=== PATIENT | female | born 2000 | race Caucasian/White ===

== ENCOUNTER 2024-06-07 21:20 | Emergency (ER) | payer MEDICAID, SELFPAY ==
[2024-06-07 21:22] VITALS: PULSE 75; RESP 17; TEMP 36.4; O2SAT 98; BMI 35.4
[2024-06-07 22:01] VITALS: BP 127/58; PULSE 82; RESP 18; O2SAT 98
--- NOTE | 2024-06-07 22:34 | ED_ITS ---
Discharge Plan Disposition Chief Complaint: PAIN Referrals Follow up/Referrals: Michell Batres APRN [Primary Care Provider] - See instructions Alma Jain DPM [Staff Physician] - See instructions Activity Restrictions/Add. Instructions Additional Instructions/Restrictions: At this time it was felt you are safe to be discharged home. If new or worsening symptoms please do not hesitate to return the emergency department. Please call and schedule appoint with Dr. Jain as soon as you are able. Clinical Impressions Clinical Impression: Chronic foot pain, Club foot of both lower extremities Discharge ED Provider: Kit Dorantse General Adult HPI General Chief complaint: PAIN Stated complaint: Swollen feet,no injury Time Seen by Provider: 06/07/24 21:30 Mode of Arrival: Family Vehicle Source of Information: Patient and Parent(s) Limitations: No Limitations Description of Symptoms (Recalled from ER Triage Doc. by RN): Pt c/o bilateral foot pain, swelling, and paresthesia. 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 Pt states this pain and swelling has been present for about 2-3 wk. 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 Pt reports she is fine to work 4 hrs but then the pain and swelling becomes apparent. She has taken tylenol for pain relief but this did nothing . Last use was 5 days ago. Bilat pedal pulse are strong, E COMMERCE STRATEGIST < 3 sec. History of Present Illness HPI narrative: Patient is a 23-year-old female with past medical history of congenital clubfeet status post bracing who presents emergency department for evaluation of foot pain. Patient has been dealing with this foot pain for approximately 4 years. It is present when she stands for prolonged amount of time working on her feet. She currently works on her feet 8 to 9 hours a day with increased hours she has had increased pain and swelling. No trauma. No other acute complaints at this time. Related Data Allergies Allergy/AdvReac Type Severity Reaction Status Date / Time INGREDIENT: NO KNOWN - NO Allergy Unknown Uncoded 11/06/17 15:10 KNOWN DRUG ALLERGY [facility] Disclaimer: The information contained in this section may have been updated after the patient was seen, as this information can be updated by other users. Social History Smoking Status: Never smoker alcohol intake: never current occupational status: other Travel in the last 8 weeks: None ROS Obtained: Yes Systems reviewed as appropriate & no additional complaints except as documented Physical Exam General General appearance: alert and in no apparent distress Head Head exam: atraumatic and normocephalic Eye Eye exam: Present PERRL ENT ENT exam: Present mucous membranes moist Neck Neck exam: Present normal inspection Chest Chest inspection: Present normal inspection and symmetric chest wall rise Respiratory Respiratory exam: Absent respiratory distress Cardiovascular Cardiovascular exam: Present regular rate and normal rhythm Extremities Exam Extremities exam: Present other (Slightly varus oriented bilateral ankles, dorsal pedal pulses bilaterally, mild swelling of the feet bilaterally, no erythema. Patient is able to ambulate.) Neurological Exam Neurological exam: Present alert Psychiatric Psychiatric exam: Present normal affect Skin Skin exam: Present warm and dry Medical Decision Making [place] Inquiry Pt receiving controlled substance: No Vital Signs: 06/07/24 21:22 Temperature 97.6 F Temperature Source Oral Pulse Rate [Right] 75 Respiratory Rate 17 02 Sat by Pulse Oximetry 98 Oxygen Delivery Method Room Air Medical Decision Narrative: Patient is aIn summary patient is 23-year-old female past medical history described above who presents emergency department for evaluation of foot pain and swelling that is chronic. Patient is hemodynamically stable nontoxic- appearing upon arrival, afebrile. Given no trauma and no concern for infection based on history and physical exam I suspect that patient has chronic musculoligamentous inflammation in the setting of her clubfeet that were braced as a child. Workup with labs and imaging was considered but will be deferred as they are likely to be fruitless. Patient will benefit from referral to Dr. Jain. Patient was given Tylenol and ibuprofen and is appropriate for outpatient management at this time was given return precautions Critical Care Critical Care Time Critical Care Time: No
[2024-06-07] MEDS: ACETAMINOPHEN 325MG/10.15ML UDC 1000 MG PO (22:50)
[2024-06-07] MEDS: IBUPROFEN 200MG/10ML SUSP UDC 600 MG PO (22:50)
[2024-06-07 22:58] VITALS: BP 127/58; PULSE 80; RESP 18; TEMP 36.8; O2SAT 98
== END 2024-06-07 23:01 | disposition home or self-care (01) ==
PROVIDERS: Emergency Provider Emergency Medicine; PCP Nurse Practitioner Family
DX: M79.673 Pain in unspecified foot (principal); Q66.89 Other specified congenital deformities of feet
CPT/HCPCS: 99283

== ENCOUNTER 2024-06-19 16:53 | Outpatient (CLI) | payer MEDICAID, SELFPAY ==
[2024-06-19 17:03] LABS: Microscopic, Urine URINE MICROSCOPIC (MICROSCOPIC)
[2024-06-19 17:30] LABS: Basophils # 0.1 K/mm3 (0-0.2); Basophils % 0.7 % (0.1-2.0); Eosinophils # 0.2 K/mm3 (0.0-0.4); Eosinophils % 1.8 % (0.1-12.0); Hematocrit 41.4 % (37.0-47.0); Hemoglobin 13.7 g/dL (12.2-16.2); Lymphocytes # 3.2 K/mm3 (0.7-4.5); Lymphocytes % 33.7 % (10-50); Mean Corpuscular HGB Conc 33.2 g/dL (31.8-35.4); Mean Corpuscular Volume 87.4 fl (81-99); Monocytes # 0.4 K/mm3 (0.1-1.0); Neutrophils # 5.7 K/mm3 (1.8-7.8); Neutrophils % 59.7 % (37.0-80.0); Platelet Count 291 K/mm3 (142-424); Red Blood Count 4.74 M/mm3 (4.20-5.40); Red Cell Distribution Width 15.7 % (11.5-17.5); White Blood Count 9.6 K/mm3 (4.8-10.8)
[2024-06-19 17:31] LABS: Appearance,Urine CLEAR (Clear); Bilirubin,Urine Negative (Negative); Blood, Urine Negative (Negative); Color,Urine YELLOW (Yellow); Glucose,Urine (UA) Negative (Negative); Ketones,Urine Negative (Negative); Leukocyte Esterase,Urine Negative (Negative); Nitrate,Urine Negative (Negative); PH,Urine 5.5 (5.0-8.5); Protein,Urine Negative (Negative); Specific Gravity, Urine >= 1.030 (1.005-1.030); Urobilinogen,Urine 0.2 EU/dl (0.2)
[2024-06-19 17:35] LABS: Urine Pregnancy, HCG Qual. Negative (Negative)
[2024-06-19 17:43] LABS: RBC,Urine Occasional #/hpf (0-3); WBC,Urine Occasional #/hpf (0-3)
[2024-06-19 17:44] LABS: Bacteria,Urine Trace /lpf; Mucus,Urine 4+ /lpf
[2024-06-19 18:10] LABS: HIV (1&2) Antibody Rapid NONREACTIVE (NONREACTIVE)
[2024-06-19 18:28] LABS: Alanine Aminotransferase 42 U/L (12-78); Albumin Level 4.2 g/dl (3.5-5.0); Albumin/Globulin Ratio 1.3 (1.1-1.8); Alkaline Phosphatase 83 U/L (38-126); Anion Gap 12.8 mEq/L (5-15); Aspartate Amino Transferase 35 U/L (14-36); Bilirubin,Total 0.6 mg/dl (0.2-1.3); Blood Urea Nitrogen 11 mg/dl (7-17); Calcium 9.6 mg/dl (8.4-10.2); Carbon Dioxide 25 mmol/L (22.0-30.0); Chloride 107 mmol/L (98-107); Chol/HDL Ratio 3.9 (1-3.5); Cholesterol 196 mg/dl (140-200); Estimated Glomerular Filt Rate 90 ml/min (>60); GFR (African American) 109 ML/MIN (>60); Globulin 3.3 g/dL (1.3-3.2); Glucose 87 mg/dl (74-100); HDL Cholesterol 50 mg/dl (40-60); Potassium 3.8 mmoL/L (3.5-5.1); Sodium 141 mmol/L (136-145); Total Protein,Serum 7.5 g/dl (6.3-8.2); Triglycerides 197 mg/dl (30-150); VLDL Cholesterol 39 mg/dL (0-40)
[2024-06-19 18:39] LABS: Direct LDL Cholesterol 106.28 mg/dL (100-129)
[2024-06-19 18:45] LABS: 25-OH Vitamin D, Total 23.6 ng/mL (30-100)
[2024-06-19 18:46] LABS: Free T4 (Free Thyroxine) 1.04 ng/dl (0.78-2.19)
[2024-06-19 18:59] LABS: Thyroid Stimulating Hormone 2.43 uIU/mL (0.465-4.68)
[2024-06-19 19:18] LABS: Vitamin B12 264 pg/mL (239-931)
[2024-06-19 22:28] LABS: Iron 68 ug/dL (37-170)
[2024-06-19 22:30] LABS: Hemoglobin A1C 4.9 % (4.0-6.0)
[2024-06-19 22:39] LABS: Total Iron Binding Capacity 319 ug/dL (265-497)
[2024-06-19 23:05] LABS: Ferritin 30.4 ng/ml (6.24-137)
[2024-06-21 05:15] LABS: HCV Ab Non Reactive (Non Reactive)
[2024-06-21 12:12] LABS: Rapid Plasma Reagin Ab Titer Non Reactive titer (NonRea<1:1)
[2024-06-23 21:37] LABS: Neisseria gonorrhoeae, NAA Negative (Negative)
== END 2024-06-19 23:59 | disposition home or self-care (01) ==
LOC: LAB 16:56
PROVIDERS: PCP Nurse Practitioner Family; Visit Provider Nurse Practitioner Family
DX: Z11.4 Encounter for screening for human immunodeficiency virus [HIV] (principal); R53.83 Other fatigue; E66.9 Obesity, unspecified; Z68.41 Body mass index [BMI] 40.0-44.9, adult; N92.6 Irregular menstruation, unspecified; Z13.1 Encounter for screening for diabetes mellitus; Z13.220 Encounter for screening for lipoid disorders; Z11.59 Encounter for screening for other viral diseases; Z11.3 Encounter for screening for infections with a predominantly sexual mode of transmission
CPT/HCPCS: 86703; 86803; 36415; 80050; 80053; 80061; 81001; 81025; 82306; 82607; 82728; 83036; 83540; 83550; 84439; 84443; 85025; 86593; 87086; 87491; 87591

== ENCOUNTER 2024-06-30 20:29 | Emergency (ER) | payer MEDICAID, SELFPAY ==
[2024-06-30 21:29] VITALS: BP 129/84; PULSE 79; RESP 17; TEMP 36.9; O2SAT 100; BMI 35.4
--- NOTE | 2024-06-30 21:41 | HMH.EDGENADL ---
Discharge Plan Disposition Patient Disposition: Home, Self-Care Condition: Good Prescriptions Prescriptions: New ondansetron 4 mg tablet,disintegrating 4 mg PO Q8H PRN (Reason: nausea and vomiting) 4 Days Qty: 12 0RF pantoprazole 40 mg tablet,delayed release (DR/EC) 40 mg PO DAILY Qty: 30 1RF Referrals Follow up/Referrals: Michell Batres APRN [Primary Care Provider] - See instructions Activity Restrictions/Add. Instructions Additional Instructions/Restrictions: You were evaluated in the emergency department today. 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 Follow-up very closely with your primary care provider for reassessment. Return to the emergency department for new or worsening symptoms, such as significant worsening in nausea and vomiting, inability to tolerate oral intake, or abdominal pain. Clinical Impressions Clinical Impression: Gastritis Stand Alone Forms Stand Alone Forms: Work/School Release Instructions Patient Instructions: DI for Diarrhea and Traveler's Diarrhea -- Adult, DI for Nausea -- Adult Print Language Print Language: Amharic Discharge ED Provider: Gay Smith General Adult HPI General Chief complaint: Nausea/Vomiting/Diarrhea Stated complaint: vomiting dizziness abd pain Time Seen by Provider: 06/30/24 21:39 Mode of Arrival: Ambulatory Source of Information: Patient Limitations: No Limitations Description of Symptoms (Recalled from ER Triage Doc. by RN): Pt states she has been having left sided flank pain x 1 week. She rates her pain 5/10. She also reports that she has been vomiting for the last week; last vomitied prior to arrival at the ER and dizzy for the last 2 days. She reports her last menstrual cycle was 05/23/24. She denies any recent fever. History of Present Illness HPI narrative: This patient is a 23-year-old female who denies significant past medical history presenting to the emergency department for evaluation with concern for nausea and vomiting. Patient states that she has had nausea vomiting for 1 week. She denies any localizable pain, only states that she has had mild cramping prior to nausea. Emesis is nonbloody and nonbilious. She has not had any significant changes in bowel movements. No dysuria, urinary frequency, or other concerns noted. No abnormal vaginal discharge. She denies concern for sexually transmitted infections. She is concerned that she could possibly be . Related Data Previous Rx's ?Medication ?Instructions ?Recorded ondansetron 4 mg disintegrating 4 mg PO Q8H PRN nausea and 06/30/24 tablet vomiting 4 days #12 tabs pantoprazole 40 mg tablet,delayed 40 mg PO DAILY #30 tabs 06/30/24 release Allergies Allergy/AdvReac Type Severity Reaction Status Date / Time No Known Allergies Allergy Verified 06/30/24 21:35 [facility] Disclaimer: The information contained in this section may have been updated after the patient was seen, as this information can be updated by other users. Surgical History H/O section H/O clubfoot correction Social History Smoking Status: Never smoker alcohol intake: never current occupational status: other Travel in the last 8 weeks: None ROS Obtained: Yes All systems reviewed & no additional complaints except as documented Physical Exam General General appearance: alert and in no apparent distress Head Head exam: atraumatic and normocephalic Eye Eye exam: Present normal appearance, PERRL and EOMI ENT ENT exam: Present normal exam, normal oropharynx, mucous membranes moist and normal external ear exam Neck Neck exam: Present normal inspection, full ROM and trachea midline; Absent tenderness Chest Chest inspection: Present normal inspection and symmetric chest wall rise; Absent tenderness Respiratory Respiratory exam: Present normal lung sounds bilaterally; Absent respiratory distress, wheezes, stridor or accessory muscle use Cardiovascular Cardiovascular exam: Present regular rate and normal rhythm Abdominal Exam Abdominal exam: Present soft; Absent distention, tenderness or guarding Extremities Exam Extremities exam: Present normal inspection, full ROM and normal capillary refill; Absent tenderness or edema Back Exam Back exam: Present normal inspection and full ROM; Absent tenderness Neurological Exam Neurological exam: Present alert, oriented X3, CN II-XII intact and normal gait; Absent motor sensory deficit Psychiatric Psychiatric exam: Present normal affect and normal mood Skin Skin exam: Present warm and dry Medical Decision Making Medical Records Medical records reviewed: Yes I reviewed the patient's medical records. [place] Inquiry Pt receiving controlled substance: No Vital Signs: 06/30/24 21:29 06/30/24 23:32 Temperature 98.4 F 98.2 F Temperature Source Oral Oral Pulse Rate 78 Pulse Rate [Right Brachial] 79 Respiratory Rate 17 16 Blood Pressure 100/64 L Blood Pressure [Right Arm] 129/84 Blood Pressure Mean [Right Arm] 99 Blood Pressure Source Automatic Cuff Blood Pressure Source [Right Arm] Automatic Cuff Blood Pressure Position Supine Blood Pressure Position [Right Arm] Sitting 02 Sat by Pulse Oximetry 100 Oxygen Delivery Method Room Air Room Air Lab Data Lab results reviewed: Yes I reviewed the patient's lab results. Lab Results 06/30/24 21:56: WBC 10.6, RBC 4.92, Hgb 14.1, Hct 44.6, MCV 90.8, MCH 28.7, MCHC 31.7 L, RDW 15.7, Plt Count 276, MPV 9.7, Neut % (Auto) 62.1, Lymph % (Auto) 31.4, [place] % (Auto) 4.0, Eos % (Auto) 1.7, Baso % (Auto) 0.8, Neut # (Auto) 6.6, Lymph # (Auto) 3.3, [place] # (Auto) 0.4, Eos # (Auto) 0.2, Baso # (Auto) 0.1, Sodium 140, Potassium 3.6, Chloride 107, Carbon Dioxide 25, Anion Gap 11.6, BUN 12, Creatinine 0.70, Estimated Creat Clear 181, Estimated GFR 105, Est GFR ( Amer) 127, Glucose 98, Calcium 9.3, Total Bilirubin 0.5, AST 34, ALT 35, Alkaline Phosphatase 81, Total Protein 8.5 H, Albumin 4.5, Globulin 4.0 H, Albumin/Globulin Ratio 1.1, Lipase 53, Serum HCG, Qual Negative 06/30/24 22:03: Urine Color Yellow, Urine Appearance Clear, Urine pH 6.0, Ur Specific [place] >= 1.030, Urine Protein Negative, Urine Glucose (UA) Negative, Urine Ketones Negative, Urine Blood Negative, Urine Nitrate Negative, Urine Bilirubin Negative, Urine Urobilinogen 0.2, Ur Leukocyte Esterase Negative, Urine RBC Occasional, Urine WBC 5-10, Ur Squamous Epith Cells 20-50, Urine Bacteria 4+ 06/30/24 21:56 06/30/24 21:56 Orders (Tests/Meds): ED MEDICATIONS Discontinued Medications Generic Name Dose Route Start Last Admin Trade Name Freq PRN Reason Stop Dose Admin Lactated Ringer's 1,000 mls @ 999 mls/hr 06/30/24 21:40 06/30/24 22:07 Lactated Ringer's 1000 Ml Bag IV 06/30/24 22:40 999 mls/hr .Q1H1M ONE Administration Ondansetron HCl 4 mg 06/30/24 21:40 06/30/24 22:07 Ondansetron 4mg/2ml Vial IV 06/30/24 21:41 4 mg ONCE ONE Administration ORDERS Category Date Time Status CBC w/Auto Diff [Complete Blood Count Auto Diff] Stat Lab 06/30/24 21:56 Completed CMP [Comprehensive Metabolic Panel] Stat Lab 06/30/24 21:56 Completed Lipase Stat Lab 06/30/24 21:56 Completed Serum [HCG Qualitative, Serum] Stat Lab 06/30/24 21:56 Completed UA [Urinalysis and Microscopic] Stat Lab 06/30/24 22:03 Completed Urine Culture Stat Micro 06/30/24 22:03 Received Medical Decision Narrative: In summary, this patient is a 23-year-old female presenting to the Emergency Department for evaluation of nausea and vomiting. Differential diagnoses considered include but are not limited to gastroenteritis, gastritis, pancreatitis, colitis, cholecystitis, . Ruling out the most morbid conditions drove assessment. On exam, the patient is very well-appearing. She has benign abdominal exam with no localizable pain or tenderness to suggest acute surgical intra-abdominal pathology. She denies urinary or vaginal symptoms. workup included CBC, CMP, lipase, test, urinalysis. Patient was given a bolus of IV fluids as well as IV Zofran for symptomatic improvement. On reassessment, the patient is resting comfortably with improved symptoms. She is able to tolerate oral intake. Abdominal exam remains benign. Labs are reassuring with no significant leukocytosis. Electrolytes, kidney function, liver function all normal. Lipase normal. No elevation in bilirubin. Urine is grossly contaminated with squamous cells but is negative for leukocyte esterase or nitrates. Ultimately, I feel the patient is appropriate for discharge home. She was given prescriptions for Zofran and pantoprazole for presumed gastritis as well as instructions for close follow-up. Strict return precautions were given. Critical Care Critical Care Time Critical Care Time: No
[2024-06-30] MEDS: LACTATED RINGERS 1000ML 1,000 ML 999 ML IV (22:07)
[2024-06-30] MEDS: ONDANSETRON 4MG/2ML VIAL 4 MG IV (22:07)
[2024-06-30 22:11] LABS: Microscopic, Urine URINE MICROSCOPIC (MICROSCOPIC)
[2024-06-30 22:12] LABS: Appearance,Urine CLEAR (Clear); Bilirubin,Urine Negative (Negative); Blood, Urine Negative (Negative); Color,Urine YELLOW (Yellow); Glucose,Urine (UA) Negative (Negative); Ketones,Urine Negative (Negative); Leukocyte Esterase,Urine Negative (Negative); Nitrate,Urine Negative (Negative); Protein,Urine Negative (Negative); Specific Gravity, Urine >= 1.030 (1.005-1.030); Urobilinogen,Urine 0.2 EU/dl (0.2)
[2024-06-30 22:30] LABS: Bacteria,Urine 4+ /lpf; RBC,Urine Occasional #/hpf (0-3); Squamous Epithelial Cell,Urine 20-50 #/hpf (0-5)
[2024-06-30 22:30] LABS: Alanine Aminotransferase 35 U/L (12-78); Albumin Level 4.5 g/dl (3.5-5.0); Albumin/Globulin Ratio 1.1 (1.1-1.8); Alkaline Phosphatase 81 U/L (38-126); Anion Gap 11.6 mEq/L (5-15); Aspartate Amino Transferase 34 U/L (14-36); Bilirubin,Total 0.5 mg/dl (0.2-1.3); Blood Urea Nitrogen 12 mg/dl (7-17); Calcium 9.3 mg/dl (8.4-10.2); Carbon Dioxide 25 mmol/L (22.0-30.0); Chloride 107 mmol/L (98-107); Creatinine Clearance Estimated 181 mL/min (50-200); Estimated Glomerular Filt Rate 105 ml/min (>60); GFR (African American) 127 ML/MIN (>60); Glucose 98 mg/dl (74-100); Lipase 53 U/L (23-300); Potassium 3.6 mmoL/L (3.5-5.1); Sodium 140 mmol/L (136-145); Total Protein,Serum 8.5 g/dl (6.3-8.2)
[2024-06-30 22:31] LABS: HCG Qualitative, Serum Negative (Negative)
[2024-06-30 22:55] LABS: Basophils # 0.1 K/mm3 (0-0.2); Basophils % 0.8 % (0.1-2.0); Eosinophils # 0.2 K/mm3 (0.0-0.4); Eosinophils % 1.7 % (0.1-12.0); Hematocrit 44.6 % (37.0-47.0); Hemoglobin 14.1 g/dL (12.2-16.2); Lymphocytes # 3.3 K/mm3 (0.7-4.5); Lymphocytes % 31.4 % (10-50); Mean Corpuscular HGB Conc 31.7 g/dL (31.8-35.4); Mean Corpuscular Hemoglobin 28.7 pg (27.0-31.2); Mean Corpuscular Volume 90.8 fl (81-99); Mean Platelet Volume 9.7 fl (7.4-10.4); Monocytes # 0.4 K/mm3 (0.1-1.0); Neutrophils # 6.6 K/mm3 (1.8-7.8); Neutrophils % 62.1 % (37.0-80.0); Platelet Count 276 K/mm3 (142-424); Red Blood Count 4.92 M/mm3 (4.20-5.40); Red Cell Distribution Width 15.7 % (11.5-17.5); White Blood Count 10.6 K/mm3 (4.8-10.8)
[2024-06-30 23:32] VITALS: BP 100/64; PULSE 78; RESP 16; TEMP 36.8; O2SAT 99
== END 2024-06-30 23:33 | disposition home or self-care (01) ==
PROVIDERS: Emergency Provider Emergency Medicine; PCP Nurse Practitioner Family
DX: K29.70 Gastritis, unspecified, without bleeding (principal); R11.2 Nausea with vomiting, unspecified; R25.2 Cramp and spasm
CPT/HCPCS: 80053; 81001; 83690; 84703; 85025; 87086; 96361; 96374; 99284; J2405; J7120

== ENCOUNTER 2024-07-03 22:42 | Emergency (ER) | payer BC, SELFPAY ==
[2024-07-03 22:44] VITALS: BP 172/98; PULSE 117; RESP 16; TEMP 37.4; O2SAT 97; BMI 35.4
--- NOTE | 2024-07-03 22:56 | ED_ITS ---
Discharge Plan Disposition Patient Disposition: Home, Self-Care Prescriptions Prescriptions: No Action ondansetron 4 mg tablet,disintegrating 4 mg PO Q8H PRN (Reason: nausea and vomiting) 4 Days Qty: 12 0RF pantoprazole 40 mg tablet,delayed release (DR/EC) 40 mg PO DAILY Qty: 30 1RF Referrals Follow up/Referrals: Michell Batres APRN [Primary Care Provider] - See instructions Activity Restrictions/Add. Instructions Additional Instructions/Restrictions: Please take the Zofran as previously prescribed. Please remain hydrated. Please follow-up with your primary care provider. Please return to the emergency department if you develop any new or worsening symptoms or become concerned for your health. Clinical Impressions Clinical Impression: Nausea & vomiting Qualifiers: Vomiting type: unspecified Qualified Code(s): R11.2 - Nausea with vomiting, unspecified Stand Alone Forms Stand Alone Forms: Work/School Release Instructions Patient Instructions: DI for Acute Abdominal Pain Print Language Print Language: Chinese Discharge ED Provider: Lorenzo Tee General Adult HPI General Chief complaint: Abdominal Pain Stated complaint: Stomach pain,HARRISON,vomiting Time Seen by Provider: 07/03/24 22:55 History of Present Illness HPI narrative: 23-year-old female presents for continued nausea vomiting and abdominal pain. She reports that her symptoms started 2 days ago and she was seen in the ER at that time. She had a workup that was unremarkable and was discharged with prescription for Zofran. She reports that she tried to take Zofran only once and she threw it up so she never tried again. She reports that she has vomited with every attempt at eating or drinking over the last 2 days. She reports she has a headache. She reports the abdominal pain is generalized and is unable to localize it to a specific location when asked. She denies any diarrhea. She reports that she had a fever yesterday. Related Data Previous Rx's ?Medication ?Instructions ?Recorded ondansetron 4 mg disintegrating 4 mg PO Q8H PRN nausea and 06/30/24 tablet vomiting 4 days #12 tabs pantoprazole 40 mg tablet,delayed 40 mg PO DAILY #30 tabs 06/30/24 release Allergies Allergy/AdvReac Type Severity Reaction Status Date / Time No Known Allergies Allergy Verified 06/30/24 21:35 [facility] Disclaimer: The information contained in this section may have been updated after the patient was seen, as this information can be updated by other users. Surgical History H/O section H/O clubfoot correction Social History Smoking Status: Never smoker alcohol intake: never current occupational status: other Travel in the last 8 weeks: None ROS Obtained: Yes All systems reviewed & no additional complaints except as documented Physical Exam General General appearance: alert and in no apparent distress Head Head exam: atraumatic and normocephalic Eye Eye exam: Present normal appearance, PERRL and EOMI ENT ENT exam: Present normal oropharynx and normal external ear exam Neck Neck exam: Present normal inspection and full ROM Chest Chest inspection: Present normal inspection and symmetric chest wall rise; Absent tenderness Respiratory Respiratory exam: Present normal lung sounds bilaterally; Absent respiratory distress Cardiovascular Cardiovascular exam: Present regular rate and normal rhythm Abdominal Exam Abdominal exam: Present soft and tenderness (Minimal, diffuse without guarding); Absent distention or guarding Extremities Exam Extremities exam: Present normal inspection; Absent edema or joint swelling Back Exam Back exam: Present normal inspection; Absent tenderness Neurological Exam Neurological exam: Present alert and oriented X3; Absent motor sensory deficit Psychiatric Psychiatric exam: Present normal affect and normal mood Skin Skin exam: Present warm, dry and normal color Lymphatic Lymphatic Findings: no adenopathy Medical Decision Making Medical Records Medical records reviewed: Yes I reviewed the patient's medical records. [place] Inquiry Pt receiving controlled substance: No [place] was queried for this patient: No Vital Signs: 07/03/24 22:44 07/03/24 23:49 Temperature 99.4 F 99.4 F Temperature Source Oral Oral Pulse Rate 99 H Pulse Rate [Left] 117 H Respiratory Rate 16 16 Blood Pressure 107/66 L Blood Pressure [Right Arm] 172/98 H Blood Pressure Mean [Right Arm] 122 Blood Pressure Source Automatic Cuff Blood Pressure Source [Right Arm] Automatic Cuff Blood Pressure Position Sitting Blood Pressure Position [Right Arm] Sitting 02 Sat by Pulse Oximetry 97 Oxygen Delivery Method Room Air Room Air Lab Data Lab results reviewed: Yes I reviewed the patient's lab results. Lab Results 07/03/24 22:45: Urine Color Yellow, Urine Appearance Clear, Urine pH 6.0, Ur Specific [place] >= 1.030, Urine Protein Negative, Urine Glucose (UA) Negative, Urine Ketones Negative, Urine Blood 2+, Urine Nitrate Negative, Urine Bilirubin Negative, Urine Urobilinogen 2.0, Ur Leukocyte Esterase Trace, Urine RBC 10-20, Urine WBC 3-5, Ur Squamous Epith Cells 5-10, Urine Bacteria 1+, Urine Mucus 1+ 07/03/24 23:00: WBC 7.9, RBC 5.04, Hgb 14.3, Hct 45.1, MCV 89.4, MCH 28.4, MCHC 31.8, RDW 15.8, Plt Count 245, MPV 9.2, Neut % (Auto) 75.3, Lymph % (Auto) 19.0, [place] % (Auto) 3.9, Eos % (Auto) 1.1, Baso % (Auto) 0.9, Neut # (Auto) 5.9, Lymph # (Auto) 1.5, [place] # (Auto) 0.3, Eos # (Auto) 0.1, Baso # (Auto) 0.1, Sodium 136, Potassium 3.6, Chloride 104, Carbon Dioxide 26, Anion Gap 9.6, BUN 10, Creatinine 1.00, Estimated Creat Clear 126, Estimated GFR 69, Est GFR ( Amer) 84, Glucose 108 H, Calcium 8.5, Magnesium 1.9, Total Bilirubin 1.0, AST 30, ALT 30, Alkaline Phosphatase 79, Total Protein 7.8, Albumin 4.3, Globulin 3.5 H, Albumin/Globulin Ratio 1.2, Lipase 37, Serum HCG, Qual Negative 07/03/24 23:07: SARS-CoV-2 (PCR) Not detected, Influenza A Untype (PCR) Not detected, Influenza Type B (PCR) Not detected 07/03/24 23:00 07/03/24 23:00 Orders (Tests/Meds): ED MEDICATIONS Discontinued Medications Generic Name Dose Route Start Last Admin Trade Name Freq PRN Reason Stop Dose Admin Acetaminophen 1,000 mg 07/03/24 23:02 07/03/24 23:33 Acetaminophen 500mg Tab PO 07/03/24 23:03 Not Given ONCE ONE Diphenhydramine HCl 25 mg 07/03/24 23:02 07/03/24 23:12 Diphenhydramine 50mg/Ml Vial IV 07/03/24 23:03 25 mg ONCE ONE Administration Sodium Chloride 1,000 mls @ 999 mls/hr 07/03/24 23:15 07/03/24 23:12 Sod Chlor 0.9% 1000ml Bag IV 07/04/24 00:15 999 mls/hr .Q1H1M JONO Administration Prochlorperazine Edisylate 10 mg 07/03/24 23:02 07/03/24 23:12 Prochlorperazine 10mg/2ml Vial IV 07/03/24 23:03 10 mg ONCE ONE Administration ORDERS Category Date Time Status CBC w/Auto Diff [Complete Blood Count Auto Diff] Stat Lab 07/03/24 23:00 Completed CMP [Comprehensive Metabolic Panel] Stat Lab 07/03/24 23:00 Completed HCG Qualitative, Serum Stat Lab 07/03/24 23:00 Completed Lipase Stat Lab 07/03/24 23:00 Completed Magnesium Stat Lab 07/03/24 23:00 Completed Rapid PCR Covid and Flu A/B Stat Lab 07/03/24 23:07 Completed UA [Urinalysis and Microscopic] Stat Lab 07/03/24 22:45 Completed Medical Decision Narrative: 23-year-old female with history of obesity presents for generalized abdominal discomfort, nausea vomiting for the last 2 days, headache today. History was obtained via interactive discussion with patient my chart review. On arrival, patient is [afebrile, hemodynamically stable, satting appropriately, alert, oriented x4, GCS 15], moving all extremities spontaneously. Full physical exam performed and significant for benign abdominal exam. Differential includes but is not limited to dehydration, gastroenteritis, UTI, pancreatitis, cholecystitis, colitis, migraine headache, tension headache. Patient was given 1 L IV fluid bolus, Compazine, Benadryl, Tylenol for symptomatic management and correction of underlying abnormalities. Workup initiated including CBC CMP test urinalysis mag. On re-evaluation, patient [remains afebrile, HD stable.] Laboratory workup independently interpreted by me and significant for no leukocytosis, no significant electrolyte derangement, urinalysis without evidence of acute infection. CT imaging of the abdomen was considered, but deemed unnecessary due to benign abdominal exam, unremarkable laboratory findings. Given patient history, exam and workup, patient's presentation most likely represents gastroenteritis. These findings were communicated patient. She is discharged in stable condition with return precautions. Procedures Risk/Benefits of Procedure(s) Were Explained: Yes Critical Care Critical Care Time Critical Care Time: No
[2024-07-03 23:06] LABS: Microscopic, Urine URINE MICROSCOPIC (MICROSCOPIC)
[2024-07-03 23:10] LABS: Coronavirus 19, PCR Not Detected (NotDetected); Influenza A, PCR Not Detected (NotDetected); Influenza B, PCR Not Detected (NotDetected)
[2024-07-03 23:11] LABS: Basophils # 0.1 K/mm3 (0-0.2); Basophils % 0.9 % (0.1-2.0); Eosinophils # 0.1 K/mm3 (0.0-0.4); Eosinophils % 1.1 % (0.1-12.0); Hematocrit 45.1 % (37.0-47.0); Hemoglobin 14.3 g/dL (12.2-16.2); Lymphocytes # 1.5 K/mm3 (0.7-4.5); Mean Corpuscular HGB Conc 31.8 g/dL (31.8-35.4); Mean Corpuscular Hemoglobin 28.4 pg (27.0-31.2); Mean Corpuscular Volume 89.4 fl (81-99); Mean Platelet Volume 9.2 fl (7.4-10.4); Monocytes # 0.3 K/mm3 (0.1-1.0); Monocytes % 3.9 % (1.7-9.3); Neutrophils # 5.9 K/mm3 (1.8-7.8); Neutrophils % 75.3 % (37.0-80.0); Platelet Count 245 K/mm3 (142-424); Red Blood Count 5.04 M/mm3 (4.20-5.40); Red Cell Distribution Width 15.8 % (11.5-17.5); White Blood Count 7.9 K/mm3 (4.8-10.8)
[2024-07-03] MEDS: diphenhydrAMINE 50MG/ML VIAL 25 MG IV (23:12)
[2024-07-03] MEDS: PROCHLORPERAZINE 10MG/2ML VIAL 10 MG IV (23:12)
[2024-07-03] MEDS: 0.9 % SODIUM CHLORIDE 1000ML 1,000 ML 999 ML IV (23:12)
[2024-07-03 23:20] LABS: Albumin Level 4.3 g/dl (3.5-5.0); Chloride 104 mmol/L (98-107); Potassium 3.6 mmoL/L (3.5-5.1); Sodium 136 mmol/L (136-145)
[2024-07-03 23:22] LABS: Alanine Aminotransferase 30 U/L (12-78); Aspartate Amino Transferase 30 U/L (14-36); Blood Urea Nitrogen 10 mg/dl (7-17); Creatinine Clearance Estimated 126 mL/min (50-200); Estimated Glomerular Filt Rate 69 ml/min (>60); GFR (African American) 84 ML/MIN (>60)
[2024-07-03 23:23] LABS: Albumin/Globulin Ratio 1.2 (1.1-1.8); Alkaline Phosphatase 79 U/L (38-126); Anion Gap 9.6 mEq/L (5-15); Calcium 8.5 mg/dl (8.4-10.2); Carbon Dioxide 26 mmol/L (22.0-30.0); Globulin 3.5 g/dL (1.3-3.2); Glucose 108 mg/dl (74-100); Lipase 37 U/L (23-300); Magnesium 1.9 mg/dl (1.6-2.3); Total Protein,Serum 7.8 g/dl (6.3-8.2)
[2024-07-03 23:26] LABS: HCG Qualitative, Serum Negative (Negative)
[2024-07-03 23:28] LABS: Appearance,Urine CLEAR (Clear); Blood, Urine 2+ (Negative); Color,Urine YELLOW (Yellow); Glucose,Urine (UA) Negative (Negative); Ketones,Urine Negative (Negative); Leukocyte Esterase,Urine TRACE (Negative); Nitrate,Urine Negative (Negative); Protein,Urine Negative (Negative); Specific Gravity, Urine >= 1.030 (1.005-1.030)
[2024-07-03 23:29] LABS: Bilirubin,Urine Negative (Negative)
[2024-07-03 23:40] LABS: Bacteria,Urine 1+ /lpf; Mucus,Urine 1+ /lpf
[2024-07-03 23:49] VITALS: BP 107/66; PULSE 99; RESP 16; TEMP 37.4; O2SAT 100
== END 2024-07-04 00:07 | disposition home or self-care (01) ==
PROVIDERS: Emergency Provider Emergency Medicine; PCP Nurse Practitioner Family
DX: R10.84 Generalized abdominal pain (principal); R11.2 Nausea with vomiting, unspecified; R51.9 Headache, unspecified
CPT/HCPCS: 80053; 81001; 83690; 83735; 84703; 85025; 87636; 96361; 96374; 96375; 99284; J0780; J1200; J7030

== ENCOUNTER 2024-07-25 10:28 | Outpatient (CLI) | payer BC, SELFPAY ==
[2024-07-24 18:56] LABS: HCG Qualitative, Serum Negative (Negative)
--- NOTE | 2024-07-25 10:32 | XR_ITS ---
FINAL REPORT CLINICAL HISTORY: Foot Pain FINDINGS: RIGHT FOOT 3 views of the right foot were obtained. There is no acute fracture or dislocation. There is apparent medial subluxation of the navicular bone versus congenital deformity. Pes planus deformity is noted. Soft tissues are unremarkable. IMPRESSION: Chronic findings without acute bony abnormality. Reviewed, Interpreted and Dictated by Long Hinojosa III, MD Transcribed by Yumiko Mcdonough Authenticated and [facility]
--- NOTE | 2024-07-25 10:32 | XR_ITS ---
FINAL REPORT CLINICAL HISTORY: Foot Pain FINDINGS: LEFT FOOT 3 views of the left foot were obtained. There is no acute fracture or dislocation. There is apparent medial subluxation of the navicular bone versus congenital deformity. Pes planus deformity is noted. Soft tissues are unremarkable. IMPRESSION: Chronic findings without acute bony abnormality. Reviewed, Interpreted and Dictated by Long Hinojosa III, MD Transcribed by Yumiko Mcdonough [facility]henticated and [facility]
== END 2024-07-25 23:59 | disposition home or self-care (01) ==
LOC: RAD 10:29
PROVIDERS: PCP Nurse Practitioner Family; Visit Provider Nurse Practitioner Family
DX: M79.673 Pain in unspecified foot (principal); Q66.89 Other specified congenital deformities of feet; R11.2 Nausea with vomiting, unspecified
CPT/HCPCS: 73630; 84703

== ENCOUNTER 2024-11-28 13:18 | Emergency (ER) | payer OTHER, SELFPAY ==
[2024-11-28 13:23] VITALS: BP 154/97; PULSE 108; O2SAT 100
[2024-11-28 13:29] VITALS: BP 154/97; PULSE 114; RESP 18; TEMP 36.4; O2SAT 99; BMI 35.4
[2024-11-28 13:37] LABS: Microscopic, Urine URINE MICROSCOPIC (MICROSCOPIC)
[2024-11-28 13:40] LABS: Appearance,Urine CLEAR (Clear); Blood, Urine Negative (Negative); Color,Urine YELLOW (Yellow); Glucose,Urine (UA) Negative (Negative); Ketones,Urine Negative (Negative); Leukocyte Esterase,Urine Negative (Negative); Nitrate,Urine Negative (Negative); Protein,Urine Negative (Negative); Specific Gravity, Urine >= 1.030 (1.005-1.030); Urobilinogen,Urine 0.2 EU/dl (0.2)
[2024-11-28 13:47] LABS: Bilirubin,Urine 1+ (Negative)
[2024-11-28 13:58] LABS: Bacteria,Urine Trace /lpf; WBC,Urine Occasional #/hpf (0-3)
[2024-11-28 13:59] LABS: Basophils # 0.1 K/mm3 (0-0.2); Basophils % 0.6 % (0.1-2.0); Eosinophils # 0.1 K/mm3 (0.0-0.4); Eosinophils % 1.4 % (0.1-12.0); Hematocrit 40.7 % (37.0-47.0); Hemoglobin 13.4 g/dL (12.2-16.2); Lymphocytes # 2.6 K/mm3 (0.7-4.5); Lymphocytes % 26.9 % (10-50); Mean Corpuscular HGB Conc 32.9 g/dL (31.8-35.4); Mean Corpuscular Hemoglobin 28.6 pg (27.0-31.2); Mean Platelet Volume 11.3 fl (7.4-10.4); Monocytes # 0.5 K/mm3 (0.1-1.0); Monocytes % 4.7 % (1.7-9.3); Neutrophils # 6.3 K/mm3 (1.8-7.8); Neutrophils % 65.9 % (37.0-80.0); Platelet Count 309 K/mm3 (142-424); Red Blood Count 4.68 M/mm3 (4.20-5.40); Red Cell Distribution Width 15.1 % (11.5-17.5); White Blood Count 9.6 K/mm3 (4.8-10.8)
[2024-11-28] MEDS: PANTOPRAZOLE 40MG TABLET 40 MG PO (13:59)
[2024-11-28] MEDS: ONDANSETRON 4MG/2ML VIAL 4 MG IV (13:59)
[2024-11-28 14:09] LABS: Alanine Aminotransferase 47 U/L (12-78); Albumin Level 4.3 g/dl (3.5-5.0); Albumin/Globulin Ratio 1.3 (1.1-1.8); Alkaline Phosphatase 72 U/L (38-126); Anion Gap 12.6 mEq/L (5-15); Aspartate Amino Transferase 44 U/L (14-36); Bilirubin,Total 0.4 mg/dl (0.2-1.3); Blood Urea Nitrogen 11 mg/dl (7-17); Carbon Dioxide 23 mmol/L (22.0-30.0); Chloride 106 mmol/L (98-107); Creatinine Clearance Estimated 157 mL/min (50-200); Estimated Glomerular Filt Rate 89 ml/min (>60); GFR (African American) 108 ML/MIN (>60); Globulin 3.2 g/dL (1.3-3.2); Glucose 109 mg/dl (74-100); Total Protein,Serum 7.5 g/dl (6.3-8.2)
--- NOTE | 2024-11-28 14:09 | ED_ITS ---
Discharge Plan Disposition Patient Disposition: Home, Self-Care Condition: Good Prescriptions Prescriptions: New PNV cmb#95-ferrous fumarate-FA [] 28 mg iron- 800 mcg tablet 1 tab PO DAILY 90 Days Qty: 90 0RF omeprazole 10 mg capsule,delayed release(DR/EC) 10 mg PO DAILY Qty: 14 0RF pyridoxine (vitamin B6) 25 mg tablet 25 mg PO BID PRN (Reason: Nausea) Qty: 60 0RF cephalexin 250 mg capsule 250 mg PO Q6H 7 Days Qty: 28 0RF No Action wfmmoupoc-uqmynk-t-talon-menthol 800 mg-0.025 %- 25 %-6 % kit, liquid and tablet PO meloxicam 7.5 mg tablet 7.5 mg PO DAILY MDD 2 tabs (15mg) 30 Days Qty: 30 2RF fluticasone propion-salmeterol [Advair HFA] 115-21 mcg/actuation HFA aerosol inhaler inhalation Patient Comments: INHALE 2 PUFFS BY MOUTH TWICE DAILY albuterol sulfate [Ventolin HFA] 90 mcg/actuation HFA aerosol inhaler 2 puff inhalation QID PRN (Reason: shortness of breath or wheezing) Qty: 8.5 5RF diclofenac sodium 1 % gel See Rx Instructions .ROUTE .COMPLEX Qty: 100 0RF Dose Instruction: APPLY 4 GRAMS TO AFFECTED AREA 4 TIMES A DAY NEEDED FOR PAIN. APPLY TO ANKLE, FOOT, GENTLY MASSAGE TO FOOT, INCLUDES SOLE/TOES/TOP OF FOOT Rx Instructions: APPLY 4 GRAMS TO AFFECTED AREA 4 TIMES A DAY NEEDED FOR PAIN. APPLY TO ANKLE, FOOT, GENTLY MASSAGE TO FOOT, INCLUDES SOLE/TOES/TOP OF FOOT Referrals Follow up/Referrals: Yaima Wilkins DO [Staff Physician] - See instructions Daria Batres APRN [Primary Care Provider] - See instructions Activity Restrictions/Add. Instructions Additional Instructions/Restrictions: I have placed a referral to the [employer] doctor Dr. Wilkins, prescribed a vitamin, as well as nausea medication and medication for reflux. Your urinalysis showed bacteria in your urine, given your status as well as some of the symptoms you are experiencing, it is recommended that this is typically treated with a course of antibiotics. As we discussed, your hormone level was 2041 which is a low number and likely indicates that you have a early on in . With this in mind, your ultrasound showed signs of early but did not show an actual fetus in your uterus at this time which can be an expected finding with this. You will need a follow-up hormone level and ultrasound to confirm that your is in your uterus. Please return with any new or worsening symptoms. I see in your chart that you are listed as taking a medication called meloxicam as well as diclofenac, please discontinue these medications until you discuss with Dr. Wilkins the [employer] doctor. Clinical Impressions Clinical Impression: Print Language Print Language: Yi Discharge ED Provider: Last Arcos General Adult HPI <Last Arcos MD - Last Filed: 11/28/24 15:44> General Chief complaint: Nausea/Vomiting/Diarrhea Stated complaint: vomiting, heartburn, lightheaded Time Seen by Provider: 11/28/24 13:24 Mode of Arrival: Ambulatory Source of Information: Patient and Significant Other Limitations: No Limitations Description of Symptoms (Recalled from ER Triage Doc. by RN): Pt. presents to the ED with complaints of nausea, vomiting, acid reflux, and dizziness for a couple days. She took a test this morning and it was positive. LMP 10/25/24. History of Present Illness HPI narrative: Please note that above description of symptoms, in this electronic medical record under categorization of recalled from ER triage doctor by RN are reflective of an initial nursing assessment, however, is not reflective of my full history and physical exam that was personally taken and clarified. Consequentially, this preceding description of symptoms, which may include the patient's categorized chief complaint in the EMR, do not reflect my personal clinical impression, and the ultimate description of history of present illness and patient stated complaints should be deferred to this section of the note. Unless stated otherwise or congruent with this section of the note, additional signs, symptoms, or incongruence should be interpreted as inaccurate with my clinical impression. Related Data Home Medications ?Medication ?Instructions ?Recorded ?Confirmed fluticasone propionate 115 inhalation 07/24/24 09/22/24 mcg-salmeterol 21 mcg/actuation HFA inhaler (Advair HFA) ibuprofen 800 mg tablet-capsaicn ea PO 07/28/24 09/22/24 0.025 %-m.talon 25 %-menthol 6 % liquid Previous Rx's ?Medication ?Instructions ?Recorded albuterol sulfate 90 mcg/actuation 2 puff inhalation QID PRN 07/24/24 aerosol inhaler (Ventolin HFA) shortness of breath or wheezing #8.5 grams meloxicam 7.5 mg tablet 7.5 mg PO DAILY 30 days #30 tabs 07/28/24 diclofenac sodium 1 % topical gel See Rx Instructions .Route 08/19/24 .COMPLEX #100 grams cephalexin 250 mg capsule 250 mg PO Q6H 7 days #28 caps 11/28/24 omeprazole 10 mg capsule,delayed 10 mg PO DAILY #14 caps 11/28/24 release vit no.95-ferrous 1 tab PO DAILY 90 days #90 tabs 11/28/24 fumarate 28 mg-folic acid 800 mcg tablet () pyridoxine (vitamin B6) 25 mg 25 mg PO BID PRN Nausea #60 tabs 11/28/24 tablet Allergies Allergy/AdvReac Type Severity Reaction Status Date / Time prednisolone AdvReac Severe Hives Verified 09/22/24 15:37 [facility] <Last Arcos MD - Last Filed: 11/28/24 15:44> [facility] Disclaimer: The information contained in this section may have been updated after the patient was seen, as this information can be updated by other users. Surgical History H/O section 2016, 2020 H/O clubfoot correction Age 9 months old in [facility] Social History Smoking Status: Never smoker alcohol intake: never current occupational status: other Travel in the last 8 weeks: None Have you lived/traveled outside [place] in past 30 days?: No Contact w/someone who lives/traveled outside US past 30 days?: No Exposure to someone with infectious disease in past 14 days?: No Do you have a fever (greater than 100.4 F or 38 C)?: No Have you tested positive for COVID-19: No Exposed to someone with COVID-19 in past 14 days?: No Do you have a sore throat?: No Do you have a cough?: No Do you have any weakness?: No Do you have any diarrhea?: No Are you experiencing any unusual bleeding?: No Do you have any muscle aches/pain?: No Do you have any abdominal pain?: No Are you experiencing loss of taste or smell?: No Other Medical History Have you received the Pneumonia Vaccine: No <Last Arcos MD - Last Filed: 11/28/24 15:44> ROS Obtained: Yes All systems reviewed & no additional complaints except as documented Physical Exam <Last Arcos MD - Last Filed: 11/28/24 15:44> General General appearance: alert Head Head exam: atraumatic and normocephalic Eye Eye exam: Present normal appearance, PERRL and EOMI Neck Neck exam: Present normal inspection, full ROM and trachea midline Respiratory Respiratory exam: Absent respiratory distress, wheezes, stridor, accessory muscle use or prolonged expiratory phase Cardiovascular Cardiovascular exam: Present other (Pulses equal symmetric in upper and lower extremities) Abdominal Exam Abdominal exam: Present soft; Absent distention, tenderness or pulsatile mass Extremities Exam Extremities exam: Absent edema Neurological Exam Neurological exam: Present alert, oriented X3 and CN II-XII intact; Absent motor sensory deficit Skin Skin exam: Present warm and dry; Absent diaphoresis or erythema Medical Decision Making <Last Arcos MD - Last Filed: 11/28/24 15:44> Medical Records Medical records reviewed: Yes I reviewed the patient's medical records. Screening: Per USPSTF and CDC recommendations, given the prevalence of disease in our region, it is our hospital?s policy to screen for HIV and viral Hepatitis for all patients aged 18 and over and those with ongoing risk factors. [place] Inquiry Pt receiving controlled substance: No [place] was queried for this patient: No Vital Signs: 11/28/24 13:23 11/28/24 13:29 11/28/24 14:37 Temperature 97.6 F Temperature Source Oral Pulse Rate 108 H 95 H Pulse Rate [Right Brachial] 114 H Respiratory Rate 18 Blood Pressure 154/97 H 123/71 Blood Pressure [Right Arm] 154/97 H Blood Pressure Mean [Right Arm] 116 Blood Pressure Source [Right Arm] Automatic Cuff Blood Pressure Position [Right Arm] Sitting 02 Sat by Pulse Oximetry 100 99 97 Oxygen Delivery Method Room Air Room Air 11/28/24 15:00 11/28/24 16:43 Temperature 97.6 F Temperature Source Pulse Rate 78 76 Pulse Rate [Right Brachial] Respiratory Rate 18 Blood Pressure 141/78 H 103/71 L Blood Pressure [Right Arm] Blood Pressure Mean [Right Arm] Blood Pressure Source [Right Arm] Blood Pressure Position [Right Arm] 02 Sat by Pulse Oximetry 99 Oxygen Delivery Method Room Air Room Air Lab Data Lab Results 11/28/24 13:27: WBC 9.6, RBC 4.68, Hgb 13.4, Hct 40.7, MCV 87.0, MCH 28.6, MCHC 32.9, RDW 15.1, Plt Count 309, MPV 11.3 H, Neut % (Auto) 65.9, Lymph % (Auto) 26.9, Lewis % (Auto) 4.7, Eos % (Auto) 1.4, Baso % (Auto) 0.6, Neut # (Auto) 6.3, Lymph # (Auto) 2.6, Lewis # (Auto) 0.5, Eos # (Auto) 0.1, Baso # (Auto) 0.1, Sodium 138, Potassium 3.6, Chloride 106, Carbon Dioxide 23, Anion Gap 12.6, BUN 11, Creatinine 0.80, Estimated Creat Clear 157, Estimated GFR 89, Est GFR ( Amer) 108, Glucose 109 H, Calcium 9.0, Total Bilirubin 0.4, AST 44 H, ALT 47, Alkaline Phosphatase 72, Total Protein 7.5, Albumin 4.3, Globulin 3.2, Albumin/Globulin Ratio 1.3, HCG, Quant 2042 H, HCV Ab LUANNE w/Rflx PCR Qn Negative, HIV Ag/Ab Combo Qual Negative 11/28/24 13:34: Urine Color Yellow, Urine Appearance Clear, Urine pH 6.0, Ur Specific [place] >= 1.030, Urine Protein Negative, Urine Glucose (UA) Negative, Urine Ketones Negative, Urine Blood Negative, Urine Nitrate Negative, Urine Bilirubin 1+ A, Urine Urobilinogen 0.2, Ur Leukocyte Esterase Negative, Urine RBC None, Urine WBC Occasional, Ur Squamous Epith Cells 5-10, Urine Bacteria Trace 11/28/24 13:27 11/28/24 13:27 Orders (Tests/Meds): ED MEDICATIONS Discontinued Medications Generic Name Dose Route Start Last Admin Trade Name Freq PRN Reason Stop Dose Admin Ondansetron HCl 4 mg 11/28/24 13:46 11/28/24 13:59 Ondansetron 4mg/2ml Vial IV 11/28/24 13:47 4 mg ONCE ONE Administration Pantoprazole Sodium 40 mg 11/28/24 13:46 11/28/24 13:59 Pantoprazole 40mg Tablet PO 11/28/24 13:47 40 mg ONCE ONE Administration ORDERS Category Date Time Status CBC w/Auto Diff [Complete Blood Count Auto Diff] Stat Lab 11/28/24 13:27 Completed CMP [Comprehensive Metabolic Panel] Stat Lab 11/28/24 13:27 Completed HCG,Quantitative Stat Lab 11/28/24 13:27 Completed HIV Combo Routine Lab 11/28/24 13:27 Completed Hepatitis C Ab Qual. W/ RFX Routine Lab 11/28/24 13:27 Completed UA [Urinalysis and Microscopic] Stat Lab 11/28/24 13:34 Completed US OB transvaginal Stat Ultrasound 11/28/24 15:07 Completed Medical Decision Narrative: 24-year-old female presenting with GERD. She states that she has been having GERD and reflux for the past couple of weeks. She states that this only happens when she has been in the past x 2. She also states that she took a test this morning and it was positive. No other acute symptoms. No vaginal discharge or bleeding. History obtained with patient. On arrival, very well-appearing. Speaking full sentences. Abdomen soft, nontender, nondistended. Benign overall. Patient appears very clinically well. Differential includes PUD, gastritis, enteritis, gastroenteritis, pancreatitis, SBO, colitis, diverticulitis, nephrolithiasis, UTI, , cholecystitis, choledocholithiasis, appendicitis, hepatitis, torsion, aortic pathology, mesenteric ischemia among others. Labs ordered, patient given Protonix. Independent interpretation of workup with nonactionable CBC or chemistry, but hCG elevated at 1999. Urinalysis unconcerning. Transvaginal ultrasound ordered, prior to this, care handed off to oncoming physician. 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 Electronic chief mate of the spoken language may permit errors. Although I have reviewed the note, some errors may still exist. <Munir Jamison MD - Last Filed: 11/28/24 22:10> Vital Signs: 11/28/24 13:23 11/28/24 13:29 11/28/24 14:37 Temperature 97.6 F Temperature Source Oral Pulse Rate 108 H 95 H Pulse Rate [Right Brachial] 114 H Respiratory Rate 18 Blood Pressure 154/97 H 123/71 Blood Pressure [Right Arm] 154/97 H Blood Pressure Mean [Right Arm] 116 Blood Pressure Source [Right Arm] Automatic Cuff Blood Pressure Position [Right Arm] Sitting 02 Sat by Pulse Oximetry 100 99 97 Oxygen Delivery Method Room Air Room Air 11/28/24 15:00 11/28/24 16:43 Temperature 97.6 F Temperature Source Pulse Rate 78 76 Pulse Rate [Right Brachial] Respiratory Rate 18 Blood Pressure 141/78 H 103/71 L Blood Pressure [Right Arm] Blood Pressure Mean [Right Arm] Blood Pressure Source [Right Arm] Blood Pressure Position [Right Arm] 02 Sat by Pulse Oximetry 99 Oxygen Delivery Method Room Air Room Air Lab Data Lab Results 11/28/24 13:27: WBC 9.6, RBC 4.68, Hgb 13.4, Hct 40.7, MCV 87.0, MCH 28.6, MCHC 32.9, RDW 15.1, Plt Count 309, MPV 11.3 H, Neut % (Auto) 65.9, Lymph % (Auto) 26.9, Lewis % (Auto) 4.7, Eos % (Auto) 1.4, Baso % (Auto) 0.6, Neut # (Auto) 6.3, Lymph # (Auto) 2.6, Lewis # (Auto) 0.5, Eos # (Auto) 0.1, Baso # (Auto) 0.1, Sodium 138, Potassium 3.6, Chloride 106, Carbon Dioxide 23, Anion Gap 12.6, BUN 11, Creatinine 0.80, Estimated Creat Clear 157, Estimated GFR 89, Est GFR ( Amer) 108, Glucose 109 H, Calcium 9.0, Total Bilirubin 0.4, AST 44 H, ALT 47, Alkaline Phosphatase 72, Total Protein 7.5, Albumin 4.3, Globulin 3.2, Albumin/Globulin Ratio 1.3, HCG, Quant 2042 H, HCV Ab LUANNE w/Rflx PCR Qn Negative, HIV Ag/Ab Combo Qual Negative 11/28/24 13:34: Urine Color Yellow, Urine Appearance Clear, Urine pH 6.0, Ur Specific [place] >= 1.030, Urine Protein Negative, Urine Glucose (UA) Negative, Urine Ketones Negative, Urine Blood Negative, Urine Nitrate Negative, Urine Bilirubin 1+ A, Urine Urobilinogen 0.2, Ur Leukocyte Esterase Negative, Urine RBC None, Urine WBC Occasional, Ur Squamous Epith Cells 5-10, Urine Bacteria Trace Orders (Tests/Meds): ED MEDICATIONS Discontinued Medications Generic Name Dose Route Start Last Admin Trade Name Adalberto PRN Reason Stop Dose Admin Ondansetron HCl 4 mg 11/28/24 13:46 11/28/24 13:59 Ondansetron 4mg/2ml Vial IV 11/28/24 13:47 4 mg ONCE ONE Administration Pantoprazole Sodium 40 mg 11/28/24 13:46 11/28/24 13:59 Pantoprazole 40mg Tablet PO 11/28/24 13:47 40 mg ONCE ONE Administration ORDERS Category Date Time Status CBC w/Auto Diff [Complete Blood Count Auto Diff] Stat Lab 11/28/24 13:27 Completed CMP [Comprehensive Metabolic Panel] Stat Lab 11/28/24 13:27 Completed HCG,Quantitative Stat Lab 11/28/24 13:27 Completed HIV Combo Routine Lab 11/28/24 13:27 Completed Hepatitis C Ab Qual. W/ RFX Routine Lab 11/28/24 13:27 Completed UA [Urinalysis and Microscopic] Stat Lab 11/28/24 13:34 Completed US OB transvaginal Stat Ultrasound 11/28/24 15:07 Completed Medical Decision Narrative: 24-year-old female presenting with GERD. She states that she has been having GERD and reflux for the past couple of weeks. She states that this only happens when she has been in the past x 2. She also states that she took a test this morning and it was positive. No other acute symptoms. No vaginal discharge or bleeding. History obtained with patient. On arrival, very well-appearing. Speaking full sentences. Abdomen soft, nontender, nondistended. Benign overall. Patient appears very clinically well. Differential includes PUD, gastritis, enteritis, gastroenteritis, pancreatitis, SBO, colitis, diverticulitis, nephrolithiasis, UTI, , cholecystitis, choledocholithiasis, appendicitis, hepatitis, torsion, aortic pathology, mesenteric ischemia among others. Labs ordered, patient given Protonix. Independent interpretation of workup with nonactionable CBC or chemistry, but hCG elevated at 1999. Urinalysis unconcerning. Transvaginal ultrasound ordered, prior to this, care handed off to oncoming physician. 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 Electronic chief mate of the spoken language may permit errors. Although I have reviewed the note, some errors may still exist. MD MILANA HobbsA: I assumed care of this patient from the previous emergency medicine physician. Transvaginal ultrasound reveals findings consistent with early , no intrauterine visualized at this time, and it was discussed with patient that she should have serial hCGs and repeat transvaginal ultrasound to confirm intrauterine . She expressed understanding and agreement with this plan. Patient is asymptomatic at this time. Return precautions given. Critical Care <Last Arcos MD - Last Filed: 11/28/24 15:44> Critical Care Time Critical Care Time: No
[2024-11-28 14:13] LABS: Potassium 3.6 mmoL/L (3.5-5.1); Sodium 138 mmol/L (136-145)
[2024-11-28 14:25] LABS: HCG,Quantitative 2042 mIU/ml (0-5.42)
[2024-11-28 14:37] VITALS: BP 123/71; PULSE 95; O2SAT 97
--- NOTE | 2024-11-28 14:45 | PC.NURSE ---
rounded on patient; pt given a starry with a cup of ice. Friend at BS. No other needs at this time
[2024-11-28 14:52] LABS: HIV Combo NEGATIVE (Negative)
[2024-11-28 15:00] VITALS: BP 141/78; PULSE 78; O2SAT 99
--- NOTE | 2024-11-28 15:07 | US_ITS ---
PROCEDURE INFORMATION: Exam: US , Transvaginal Exam date and time: 11/28/2024 3:15 PM Age: 24 years old Clinical indication: Lmp or gestational age (in weeks): 5w0d; ; Patient HX: N/v, dizzy; Additional info: Hcg positive LABS AND CLINICAL REPORTS: Last menstrual period start date: 10/24/2024 Gestational age (Established): 5 w 0 d Estimated due date (Established): 07/31/2025 TECHNIQUE: Imaging protocol: Real-time transvaginal obstetrical ultrasound of the maternal pelvis with image documentation. Transvaginal imaging was used for better evaluation of the fetus, adnexa, and/or cervix. COMPARISON: No relevant prior studies available. FINDINGS: Gestation: Intrauterine gestational sac is identified. BIOMETRY: Gestational age (AUA): 5 w 0 d Estimated due date (AUA): 07/31/2025 Mean sac diameter: 0.46 cm. MATERNAL: Right ovary/adnexa: Right ovary measures 2.15 cm x 0.92 cm x 1.36 cm. Right ovarian volume is 1.41 mL. Left ovary/adnexa: Left ovary measures 3.03 cm x 2.43 cm x 3.94 cm. Left ovarian volume is 15.19 mL. IMPRESSION: Intrauterine gestational sac correlating with a five week gestation. No yolk sac or pole is seen at the time of examination and follow up would be suggested.
--- NOTE | 2024-11-28 15:11 | PC.NURSE ---
pt to US via wheelchair
--- NOTE | 2024-11-28 15:12 | PC.NURSE ---
pt to ultrasound
--- NOTE | 2024-11-28 15:36 | PC.NURSE ---
pt back from US
[2024-11-28 16:43] VITALS: BP 103/71; PULSE 76; RESP 18; TEMP 36.4; O2SAT 99
[2024-11-28 20:04] LABS: Hepatitis C Ab Qual. W/ RFX NEGATIVE (Negative)
== END 2024-11-28 16:44 | disposition home or self-care (01) ==
PROVIDERS: Emergency Provider Emergency Medicine; PCP Nurse Practitioner Family
DX: Z34.90 Encounter for supervision of normal pregnancy, unspecified, unspecified trimester (principal); R11.2 Nausea with vomiting, unspecified; R42 Dizziness and giddiness; R12 Heartburn
CPT/HCPCS: 76817; 80053; 81001; 84702; 85025; 86803; 87389; 96374; 99283; J2405

== ENCOUNTER 2024-12-01 15:20 | Outpatient (CLI) | payer OTHER, SELFPAY ==
[2024-12-01 17:02] LABS: HCG,Quantitative 7560 mIU/ml (0-5.42)
[2024-12-02 08:14] LABS: Progesterone 13.2 ng/mL (.)
== END 2024-12-01 23:59 | disposition home or self-care (01) ==
LOC: LAB 15:21
PROVIDERS: PCP Nurse Practitioner Family; Visit Provider Obstetrics & Gynecology
DX: Z34.81 Encounter for supervision of other normal pregnancy, first trimester (principal)
CPT/HCPCS: 84144; 84702

== ENCOUNTER 2024-12-12 12:01 | Outpatient (CLI) | payer OTHER, SELFPAY ==
[2024-12-12 12:17] LABS: Basophils # 0.1 K/mm3 (0-0.2); Basophils % 0.5 % (0.1-2.0); Eosinophils # 0.1 K/mm3 (0.0-0.4); Eosinophils % 1.2 % (0.1-12.0); Hematocrit 40.1 % (37.0-47.0); Hemoglobin 13.3 g/dL (12.2-16.2); Lymphocytes # 2.7 K/mm3 (0.7-4.5); Lymphocytes % 27.4 % (10-50); Mean Corpuscular HGB Conc 33.2 g/dL (31.8-35.4); Mean Corpuscular Hemoglobin 28.8 pg (27.0-31.2); Mean Corpuscular Volume 86.8 fl (81-99); Mean Platelet Volume 11.2 fl (7.4-10.4); Monocytes # 0.6 K/mm3 (0.1-1.0); Monocytes % 5.6 % (1.7-9.3); Neutrophils # 6.4 K/mm3 (1.8-7.8); Neutrophils % 64.9 % (37.0-80.0); Platelet Count 260 K/mm3 (142-424); Red Blood Count 4.62 M/mm3 (4.20-5.40); White Blood Count 9.8 K/mm3 (4.8-10.8)
[2024-12-12 13:37] LABS: HIV Combo NEGATIVE (Negative)
[2024-12-12 13:45] LABS: Hepatitis C Ab Qual. W/ RFX NEGATIVE (Negative)
[2024-12-13 05:16] LABS: Hepatitis B Surface Antigen Negative (Negative)
[2024-12-13 17:14] LABS: RPR W/RFX Titers Nonreactive (Nonreactive)
== END 2024-12-12 23:59 | disposition home or self-care (01) ==
LOC: LAB 12:02
PROVIDERS: PCP Nurse Practitioner Family; Visit Provider Obstetrics & Gynecology
DX: Z34.01 Encounter for supervision of normal first pregnancy, first trimester (principal)
CPT/HCPCS: 36415; 85025; 86592; 86762; 86803; 86850; 87086; 87340; 87389

== ENCOUNTER 2024-12-26 17:33 | Emergency (ER) | payer OTHER, SELFPAY ==
[2024-12-26 17:36] VITALS: BP 132/69; PULSE 95; RESP 18; TEMP 36.7; O2SAT 94; BMI 35.4
[2024-12-26 17:56] LABS: Coronavirus 19, PCR Not Detected (NotDetected); Influenza B, PCR Not Detected (NotDetected)
--- NOTE | 2024-12-26 18:09 | ED_ITS ---
<Statement entered by Gay Smith DO - 12/26/24 23:44> I was consulted by the ALVAREZ, and we discussed the complexity of the problems being addressed. I approved the treatment and management plan for this patient's care in the emergency department, thus performing a substantive portion of the medical decision making. Gay Smith DO Discharge Plan Disposition Patient Disposition: Home, Self-Care Condition: Good Chief Complaint: Nausea/Vomiting/Diarrhea Prescriptions Prescriptions: No Action Classic 28 mg iron- 800 mcg tablet 1 tab PO DAILY 30 Days Qty: 30 3RF omeprazole 10 mg capsule,delayed release(DR/EC) 10 mg PO DAILY Qty: 14 0RF Referrals Follow up/Referrals: Michell Batres APRN [Primary Care Provider] - See instructions Activity Restrictions/Add. Instructions Additional Instructions/Restrictions: Please follow-up with your [facility], [id number] cold and flu medications can be utilized for symptomatic relief, ibuprofen Tylenol as well, return to the emerged part any worsening signs or symptoms. I recommend good hydration and oral intake with food. Clinical Impressions Clinical Impression: Influenza A Instructions Patient Instructions: DI for Influenza -- Adult Print Language Print Language: Venezuelan Discharge ED Provider: Gay Smith General Adult HPI <RASHMI Arredondo - Last Filed: 12/26/24 19:25> General Chief complaint: Nausea/Vomiting/Diarrhea Stated complaint: sent by OB -vani rodgers Time Seen by Provider: 12/26/24 17:54 Mode of Arrival: Ambulatory Source of Information: Patient Limitations: No Limitations Description of Symptoms (Recalled from ER Triage Doc. by RN): Patient presents after being told to come to the ED by her OB. Patient states she will be 9-weeks on sunday. States she has been nauseous and vomiting. Denies blood in vomitus. Denies diarrhea. Denies fevers. Denies urinary symptoms. States, I am fine when I'm laying down, but when I stand up I just get really jittery and feel like I'm going to pass out. Patient states she has been having these symptoms for a week. States she attempted to get an OB appointment but there was no appointments available. History of Present Illness HPI narrative: 24-year-old G4, , at approximately 9 weeks gestation that is upcoming this Sunday. Patient presents to the emergency department 3-day history of dizziness/lightheadedness no true presyncopal/syncopal event. Endorses recent sick contact being the children with URI type symptomatology she endorses some chest tightness/shortness of breath at times, denies any fever or chills, admits to nausea, several episodes of vomiting, but this has been present throughout her thus far, denies any abdominal pain, denies urinary type symptomatology, no vaginal bleeding, no vaginal discharge, has other past medical history consistent with asthma, if she is taking her prenatals, denies any other real relevant past medical history, no history of substance use. History as well as grossly unremarkable. Related Data Previous Rx's ?Medication ?Instructions ?Recorded omeprazole 10 mg capsule,delayed 10 mg PO DAILY #14 caps 11/28/24 release vits no.126-ferrous fum 1 tab PO DAILY 30 days #30 tabs 12/09/24 28 mg iron-folic acid 800 mcg tablet (Classic ) Allergies Allergy/AdvReac Type Severity Reaction Status Date / Time prednisolone AdvReac Severe Hives Verified 12/26/24 18:10 [facility] <RASHMI Arredondo - Last Filed: 12/26/24 19:25> [facility] Disclaimer: The information contained in this section may have been updated after the patient was seen, as this information can be updated by other users. Medical History (Updated 12/26/24 @ 19:25 by RASHMI Arredondo) History of anxiety History of asthma Surgical History H/O section H/O clubfoot correction Social History Smoking Status: Never smoker alcohol intake: never current occupational status: other Travel in the last 8 weeks: None Have you lived/traveled outside [place] in past 30 days?: No Contact w/someone who lives/traveled outside US past 30 days?: No Exposure to someone with infectious disease in past 14 days?: No Do you have a fever (greater than 100.4 F or 38 C)?: No Have you tested positive for COVID-19: No Exposed to someone with COVID-19 in past 14 days?: No Do you have a sore throat?: No Do you have a cough?: No Do you have any weakness?: No Do you have any diarrhea?: No Are you experiencing any unusual bleeding?: No Do you have any muscle aches/pain?: No Do you have any abdominal pain?: No Are you experiencing loss of taste or smell?: No Other Medical History Have you received the Pneumonia Vaccine: No <RASHMI Arredondo - Last Filed: 12/26/24 19:25> ROS Obtained: Yes All systems reviewed & no additional complaints except as documented Physical Exam <RASHMI Arredondo - Last Filed: 12/26/24 19:25> General General appearance: alert and in no apparent distress Head Head exam: atraumatic and normocephalic Eye Eye exam: Present PERRL and EOMI ENT ENT exam: Present mucous membranes moist Neck Neck exam: Present normal inspection Chest Chest inspection: Present normal inspection and symmetric chest wall rise Respiratory Respiratory exam: Present normal lung sounds bilaterally; Absent respiratory distress Cardiovascular Cardiovascular exam: Present regular rate and normal rhythm Abdominal Exam Abdominal exam: Present soft; Absent tenderness Extremities Exam Extremities exam: Present normal inspection Neurological Exam Neurological exam: Present alert and oriented X3 Psychiatric Psychiatric exam: Present normal affect Skin Skin exam: Present warm and dry Medical Decision Making <RASHMI Arredondo - Last Filed: 12/26/24 19:25> Medical Records Medical records reviewed: Yes I reviewed the patient's medical records. Screening: Per USPSTF and CDC recommendations, given the prevalence of disease in our region, it is our hospital?s policy to screen for HIV and viral Hepatitis for all patients aged 18 and over and those with ongoing risk factors. [place] Inquiry Pt receiving controlled substance: No [place] was queried for this patient: No Vital Signs: 12/26/24 17:36 Temperature 98.0 F Temperature Source Oral Pulse Rate [Radial] 95 H Respiratory Rate 18 Blood Pressure [R Arm] 132/69 Blood Pressure Mean [R Arm] 90 Blood Pressure Source [R Arm] Automatic Cuff 02 Sat by Pulse Oximetry 94 L Oxygen Delivery Method Room Air Lab Data Lab results reviewed: Yes I reviewed the patient's lab results. Lab Results 12/26/24 17:42: SARS-CoV-2 (PCR) Not detected, Influenza A Untype (PCR) Detected A, Influenza Type B (PCR) Not detected 12/26/24 17:59: WBC 8.6, RBC 4.70, Hgb 13.2, Hct 40.2, MCV 85.5, MCH 28.1, MCHC 32.8, RDW 14.7, Plt Count 257, MPV 11.3 H, Neut % (Auto) 61.5, Lymph % (Auto) 31.9, [place] % (Auto) 4.9, Eos % (Auto) 1.2, Baso % (Auto) 0.3, Neut # (Auto) 5.3, Lymph # (Auto) 2.8, [place] # (Auto) 0.4, Eos # (Auto) 0.1, Baso # (Auto) 0.0, Sodium 138, Potassium 4.0, Chloride 106, Carbon Dioxide 22, Anion Gap 14.0, BUN 9, Creatinine 0.60, Estimated Creat Clear 209, Estimated GFR 124, Est GFR ( Amer) 150, Glucose 94, Calcium 9.0, Magnesium 1.9, Total Bilirubin 0.4, AST 41 H, ALT 58, Alkaline Phosphatase 78, Troponin I < 0.01, NT-Pro-B Natriuret Pep 20.1, Total Protein 7.6, Albumin 4.3, Globulin 3.3 H, Albumin/Globulin Ratio 1.3, Lipase 69, HCG, Quant [id number] H 12/26/24 18:55: Urine Color Yellow, Urine Appearance Clear, Urine pH 6.0, Ur Specific [place] >= 1.030, Urine Protein Negative, Urine Glucose (UA) Negative, Urine Ketones Trace, Urine Blood Negative, Urine Nitrate Negative, Urine Bilirubin Negative, Urine Urobilinogen 1.0, Ur Leukocyte Esterase Negative 12/26/24 17:59 12/26/24 17:59 Orders (Tests/Meds): ED MEDICATIONS Generic Name Dose Route Start Last Admin Trade Name Freq PRN Reason Stop Dose Admin Lactated Ringer's 1,000 mls @ 999 mls/hr 12/26/24 18:26 12/26/24 18:33 Lactated Ringer's 1000 Ml Bag IV 12/26/24 19:26 999 mls/hr .Q1H1M ONE Administration Discontinued Medications Generic Name Dose Route Start Last Admin Trade Name Freq PRN Reason Stop Dose Admin Ondansetron HCl 4 mg 12/26/24 18:26 12/26/24 18:33 Ondansetron 4mg/2ml Vial IV 12/26/24 18:27 4 mg ONCE ONE Administration ORDERS Category Date Time Status POCUS Point of Care (ER Only) Stat Exams 12/26/24 18:08 Taken Beta HCG, Quant [HCG,Quantitative] Stat Lab 12/26/24 17:59 Completed Complete Blood Count Auto Diff Stat Lab 12/26/24 17:59 Completed Comprehensive Metabolic Panel Stat Lab 12/26/24 17:59 Completed Lipase Stat Lab 12/26/24 17:59 Completed Magnesium Stat Lab 12/26/24 17:59 Completed NT Pro Brain Natriuretic Pep. Stat Lab 12/26/24 17:59 Completed Rapid PCR Covid and Flu A/B Stat Lab 12/26/24 17:42 Completed Troponin I Q3H Lab 12/26/24 21:15 Ordered Troponin I Q3H Lab 12/27/24 00:15 Ordered Troponin I Stat Lab 12/26/24 17:59 Completed Urinalysis and Microscopic Stat Lab 12/26/24 18:55 Results Medical Decision Narrative: 24-year-old female presents emergency department with lightheaded and dizziness, differential diagnose, not limited to, cardiac arrhythmia, electrolyte disturbance, ACS, URI, hyperemesis gravidarum, acute UTI, dehydration. Discussed patient case with attending physician Will obtain basic laboratory studies beta-hCG quant, lipase magnesium proBNP troponin rapid PCR COVID and flu urinalysis. POCUS ultrasound. POCUS was performed by attending physician, IUP is noted with a heart rate of 167. CBC grossly unremarkable Influenza A is detected, COVID-19 negative, influenza B negative CMP is notable for elevation of her AST at 41 which can be seen in /ongoing viral illness lipase within normal limits. Troponin and proBNP within normal limits Urinalysis grossly unremarkable hCG is noted to be at normal limits for /gestational age. At 117,230. I discussed these results with the patient at the bedside patient is in agreement with current treatment plan/discharge plan. Patient will need to follow-up with [facility] as directed, return to the emerged part with any worsening signs or symptoms, recommend good p.o. intake, [id number] cold and flu medications, ibuprofen Tylenol as needed for symptomatic relief. Patient voiced understand agree with current treatment plan/discharge plan. <Gay Smith, DO - Last Filed: 12/26/24 18:27> Vital Signs: 12/26/24 17:36 Temperature 98.0 F Temperature Source Oral Pulse Rate [Radial] 95 H Respiratory Rate 18 Blood Pressure [R Arm] 132/69 Blood Pressure Mean [R Arm] 90 Blood Pressure Source [R Arm] Automatic Cuff 02 Sat by Pulse Oximetry 94 L Oxygen Delivery Method Room Air Lab Data Lab Results 12/26/24 17:42: SARS-CoV-2 (PCR) Not detected, Influenza A Untype (PCR) Detected A, Influenza Type B (PCR) Not detected 12/26/24 17:59: WBC 8.6, RBC 4.70, Hgb 13.2, Hct 40.2, MCV 85.5, MCH 28.1, MCHC 32.8, RDW 14.7, Plt Count 257, MPV 11.3 H, Neut % (Auto) 61.5, Lymph % (Auto) 31.9, [place] % (Auto) 4.9, Eos % (Auto) 1.2, Baso % (Auto) 0.3, Neut # (Auto) 5.3, Lymph # (Auto) 2.8, [place] # (Auto) 0.4, Eos # (Auto) 0.1, Baso # (Auto) 0.0, Sodium 138, Potassium 4.0, Chloride 106, Carbon Dioxide 22, Anion Gap 14.0, BUN 9, Creatinine 0.60, Estimated Creat Clear 209, Estimated GFR 124, Est GFR ( Amer) 150, Glucose 94, Calcium 9.0, Magnesium 1.9, Total Bilirubin 0.4, AST 41 H, ALT 58, Alkaline Phosphatase 78, Troponin I < 0.01, NT-Pro-B Natriuret Pep 20.1, Total Protein 7.6, Albumin 4.3, Globulin 3.3 H, Albumin/Globulin Ratio 1.3, Lipase 69, HCG, Quant [id number] H 12/26/24 18:55: Urine Color Yellow, Urine Appearance Clear, Urine pH 6.0, Ur Specific [place] >= 1.030, Urine Protein Negative, Urine Glucose (UA) Negative, Urine Ketones Trace, Urine Blood Negative, Urine Nitrate Negative, Urine Bilirubin Negative, Urine Urobilinogen 1.0, Ur Leukocyte Esterase Negative Orders (Tests/Meds): ED MEDICATIONS Generic Name Dose Route Start Last Admin Trade Name Freq PRN Reason Stop Dose Admin Lactated Ringer's 1,000 mls @ 999 mls/hr 12/26/24 18:26 12/26/24 18:33 Lactated Ringer's 1000 Ml Bag IV 12/26/24 19:26 999 mls/hr .Q1H1M ONE Administration Discontinued Medications Generic Name Dose Route Start Last Admin Trade Name Freq PRN Reason Stop Dose Admin Ondansetron HCl 4 mg 12/26/24 18:26 12/26/24 18:33 Ondansetron 4mg/2ml Vial IV 12/26/24 18:27 4 mg ONCE ONE Administration ORDERS Category Date Time Status POCUS Point of Care (ER Only) Stat Exams 12/26/24 18:08 Taken Beta HCG, Quant [HCG,Quantitative] Stat Lab 12/26/24 17:59 Completed Complete Blood Count Auto Diff Stat Lab 12/26/24 17:59 Completed Comprehensive Metabolic Panel Stat Lab 12/26/24 17:59 Completed Lipase Stat Lab 12/26/24 17:59 Completed Magnesium Stat Lab 12/26/24 17:59 Completed NT Pro Brain Natriuretic Pep. Stat Lab 12/26/24 17:59 Completed Rapid PCR Covid and Flu A/B Stat Lab 12/26/24 17:42 Completed Troponin I Q3H Lab 12/26/24 21:15 Ordered Troponin I Q3H Lab 12/27/24 00:15 Ordered Troponin I Stat Lab 12/26/24 17:59 Completed Urinalysis and Microscopic Stat Lab 12/26/24 18:55 Results ECG Data Tracing #1: I reviewed this ECG and interpreted as documented below: Normal sinus rhythm with a ventricular rate of 78 bpm. Some artifact grade study. No ST changes concerning for ischemia. Normal axis and intervals. ECG initial impression date: 12/26/24 ECG initial impression time: 18:26 Procedures <Gay Smith, - Last Filed: 12/26/24 18:27> Limited Ultrasound Interpretation:: Limited OB ultrasound Indication: , lightheadedness Identified structures: [-Uterus -Left adnexa -Right adnexa -Pouch of Shan] Findings: Uterus: Definitive IUP FHR: 167 Right adnexa: Normal Left adnexa: Normal Cul de sac: Free fluid absent Impression: -IUP: Present - heart rate: 167 -Ectopic : Absent -Free fluid: Absent Images were saved to permanent archive The study was technically adequate CPT Transabdominal: 22963-50 This study was performed by me, and I personally interpreted all images/videos. Based on my clinical judgement, these images were adequate and did not necessitate further imaging. Critical Care <RASHMI Arredondo - Last Filed: 12/26/24 19:25> Critical Care Time Critical Care Time: No
[2024-12-26 18:15] LABS: Basophils % 0.3 % (0.1-2.0); Eosinophils # 0.1 K/mm3 (0.0-0.4); Eosinophils % 1.2 % (0.1-12.0); Hematocrit 40.2 % (37.0-47.0); Hemoglobin 13.2 g/dL (12.2-16.2); Lymphocytes # 2.8 K/mm3 (0.7-4.5); Lymphocytes % 31.9 % (10-50); Mean Corpuscular HGB Conc 32.8 g/dL (31.8-35.4); Mean Corpuscular Hemoglobin 28.1 pg (27.0-31.2); Mean Corpuscular Volume 85.5 fl (81-99); Mean Platelet Volume 11.3 fl (7.4-10.4); Monocytes # 0.4 K/mm3 (0.1-1.0); Monocytes % 4.9 % (1.7-9.3); Neutrophils # 5.3 K/mm3 (1.8-7.8); Neutrophils % 61.5 % (37.0-80.0); Platelet Count 257 K/mm3 (142-424); Red Cell Distribution Width 14.7 % (11.5-17.5); White Blood Count 8.6 K/mm3 (4.8-10.8)
[2024-12-26 18:21] LABS: Chloride 106 mmol/L (98-107)
[2024-12-26 18:22] LABS: Albumin Level 4.3 g/dl (3.5-5.0); Sodium 138 mmol/L (136-145)
--- NOTE | 2024-12-26 18:23 | ECG_ITS ---
APPROVED REPORT Exam: Resting ECG HR:78 bpm ECG Measurements Heart Rate 78 AXES WV 156 P 25 QRSd 78 QRS 38 QT 350 T 16 QTc 383 Conclusion SINUS RHYTHM LOW QRS VOLTAGE IN PRECORDIAL LEADS [QRS DEFLECTION < 1.0 mV IN CHEST LEADS] NONSPECIFIC T-WAVE ABNORMALITY Electronically signed by : EVERARDO CALLES, 12/27/2024 00:16:11
[2024-12-26 18:24] LABS: Blood Urea Nitrogen 9 mg/dl (7-17); Creatinine Clearance Estimated 209 mL/min (50-200); Estimated Glomerular Filt Rate 124 ml/min (>60); GFR (African American) 150 ML/MIN (>60)
[2024-12-26 18:25] LABS: Alanine Aminotransferase 58 U/L (12-78); Albumin/Globulin Ratio 1.3 (1.1-1.8); Alkaline Phosphatase 78 U/L (38-126); Aspartate Amino Transferase 41 U/L (14-36); Bilirubin,Total 0.4 mg/dl (0.2-1.3); Carbon Dioxide 22 mmol/L (22.0-30.0); Globulin 3.3 g/dL (1.3-3.2); Glucose 94 mg/dl (74-100); Total Protein,Serum 7.6 g/dl (6.3-8.2)
[2024-12-26 18:28] LABS: Lipase 69 U/L (23-300)
[2024-12-26 18:29] LABS: Magnesium 1.9 mg/dl (1.6-2.3)
[2024-12-26] MEDS: LACTATED RINGERS 1000ML 1,000 ML 999 ML IV (18:33)
[2024-12-26] MEDS: ONDANSETRON 4MG/2ML VIAL 4 MG IV (18:33)
[2024-12-26 18:34] LABS: Influenza A, PCR Detected (NotDetected)
[2024-12-26 18:39] LABS: NT Pro Brain Natriuretic Pep. 20.1 pg/mL (0-125)
[2024-12-26 19:00] LABS: Microscopic, Urine URINE MICROSCOPIC (MICROSCOPIC)
[2024-12-26 19:01] LABS: Appearance,Urine CLEAR (Clear); Bilirubin,Urine Negative (Negative); Blood, Urine Negative (Negative); Color,Urine YELLOW (Yellow); Glucose,Urine (UA) Negative (Negative); Ketones,Urine TRACE (Negative); Leukocyte Esterase,Urine Negative (Negative); Nitrate,Urine Negative (Negative); Protein,Urine Negative (Negative); Specific Gravity, Urine >= 1.030 (1.005-1.030)
[2024-12-26 19:02] LABS: Troponin I < 0.01 ng/ml (0.00-0.034)
[2024-12-26 19:18] LABS: HCG,Quantitative 117230 mIU/ml (0-5.42)
[2024-12-26 19:36] VITALS: BP 134/72; PULSE 92; RESP 14; TEMP 36.7; O2SAT 99
[2024-12-26 19:54] LABS: Bacteria,Urine 1+ /lpf; Mucus,Urine 4+ /lpf; RBC,Urine Occasional #/hpf (0-3); WBC,Urine Occasional #/hpf (0-3)
== END 2024-12-26 19:37 | disposition home or self-care (01) ==
PROVIDERS: Physician Assistant; Emergency Provider Emergency Medicine; PCP Nurse Practitioner Family
DX: J10.1 Influenza due to other identified influenza virus with other respiratory manifestations (principal); R11.2 Nausea with vomiting, unspecified; R42 Dizziness and giddiness; Z20.828 Contact with and (suspected) exposure to other viral communicable diseases
CPT/HCPCS: 80053; 81001; 83690; 83735; 83880; 84484; 84702; 85025; 87636; 93005; 96361; 96374; 99283; J2405; J7120

== ENCOUNTER 2025-01-27 13:51 | Emergency (ER) | payer OTHER, SELFPAY ==
[2025-01-27 13:56] VITALS: BP 136/79; PULSE 103; RESP 18; TEMP 36.8; O2SAT 98; BMI 41.3
--- NOTE | 2025-01-27 14:03 | ECG_ITS ---
APPROVED REPORT Exam: Resting ECG HR:87 bpm ECG Measurements Heart Rate [address] 134 P 56 QRSd 80 QRS 62 QT 332 T 11 QTc 376 Conclusion SINUS RHYTHM WITH MARKED SINUS ARRHYTHMIA LOW QRS VOLTAGE IN PRECORDIAL LEADS [QRS DEFLECTION < 1.0 mV IN CHEST LEADS] NONSPECIFIC T-WAVE ABNORMALITY BORDERLINE ECG Electronically signed by : GERTRUDIS GALLAGHER, 01/30/2025 10:55:13
[2025-01-27 14:19] LABS: Coronavirus 19, PCR Not Detected (NotDetected); Influenza A, PCR Not Detected (NotDetected); Influenza B, PCR Not Detected (NotDetected)
[2025-01-27 14:26] LABS: Basophils % 0.3 % (0.1-2.0); Eosinophils # 0.1 K/mm3 (0.0-0.4); Hematocrit 38.4 % (37.0-47.0); Hemoglobin 12.7 g/dL (12.2-16.2); Lymphocytes # 2.2 K/mm3 (0.7-4.5); Lymphocytes % 24.2 % (10-50); Mean Corpuscular HGB Conc 33.1 g/dL (31.8-35.4); Mean Corpuscular Hemoglobin 28.7 pg (27.0-31.2); Mean Corpuscular Volume 86.7 fl (81-99); Mean Platelet Volume 11.4 fl (7.4-10.4); Monocytes # 0.5 K/mm3 (0.1-1.0); Monocytes % 5.1 % (1.7-9.3); Neutrophils # 6.2 K/mm3 (1.8-7.8); Neutrophils % 69.1 % (37.0-80.0); Platelet Count 226 K/mm3 (142-424); Red Blood Count 4.43 M/mm3 (4.20-5.40); Red Cell Distribution Width 15.5 % (11.5-17.5)
[2025-01-27 14:29] LABS: Albumin Level 4.4 g/dl (3.5-5.0); Chloride 107 mmol/L (98-107); Potassium 3.5 mmoL/L (3.5-5.1); Sodium 135 mmol/L (136-145)
[2025-01-27 14:32] LABS: Alanine Aminotransferase 23 U/L (12-78); Albumin/Globulin Ratio 1.4 (1.1-1.8); Alkaline Phosphatase 65 U/L (38-126); Anion Gap 9.5 mEq/L (5-15); Aspartate Amino Transferase 26 U/L (14-36); Bilirubin,Total 0.3 mg/dl (0.2-1.3); Blood Urea Nitrogen 6 mg/dl (7-17); Calcium 9.2 mg/dl (8.4-10.2); Carbon Dioxide 22 mmol/L (22.0-30.0); Creatinine Clearance Estimated 121 mL/min (50-200); Estimated Glomerular Filt Rate 124 ml/min (>60); GFR (African American) 150 ML/MIN (>60); Globulin 3.2 g/dL (1.3-3.2); Glucose 91 mg/dl (74-100); Total Protein,Serum 7.6 g/dl (6.3-8.2)
[2025-01-27 14:33] LABS: Lipase 35 U/L (23-300)
[2025-01-27 14:40] VITALS: BP 132/112; PULSE 84; O2SAT 97
[2025-01-27 14:43] LABS: Microscopic, Urine URINE MICROSCOPIC (MICROSCOPIC)
--- NOTE | 2025-01-27 14:43 | US_ITS ---
PROCEDURE: US OB TRANSVAGINAL CLINICAL INDICATION: Abdominal pain, 14 weeks gestation COMPARISON: US US OB TRANSVAGINAL from 11/28/2024 FINDINGS: Transabdominal sonographic images of the pelvis were obtained. The uterus is anteverted. From her last menstrual period she is 13weeks 3days. An intrauterine gestational sac is present with a pole with a crown-rump length of 7.42cm This correlates to a gestational age of 13weeks 4days., SUSU 08/01/2025 heart tones are present with an FHR of 150bpm. The right ovary is seen and appears normal. The left ovary is seen and appears normal. There is no fluid in the cul-de-sac. IMPRESSION: 1. Viable fetus within the uterine cavity . heart rate activity is present. 2. The fetus measures 13 weeks 3 days which is consistent with her last menstrual period. 3. The placenta is posterior grade 1. 4. The fluid appears within normal limits. 5. Both ovaries are difficult to visualize but appear normal. 6. No fluid in the cul-de-sac. 7. Discussed the results with Dr. Dorantes. Dictated by: Chandana Zheng MD 01/27/2025 16:12 Chandana Zheng MD in OV 01/27/2025 16:12
--- NOTE | 2025-01-27 14:43 | ED_ITS ---
<Statement entered by Kit Dorantes MD - 01/27/25 23:35> I was consulted by the ALVAREZ, and we discussed the complexity of the problems being addressed. I approved the treatment and management plan for this patient's care in the emergency department, thus performing a substantive portion of the medical decision making. [id number] ultrasound at done by me at bedside shows no left hydronephrosis images were not saved to permanent archive therefore no formal note is warranted.. Kit Dorantes MD Discharge Plan Disposition Patient Disposition: Home, Self-Care Condition: Good Prescriptions Prescriptions: New nitrofurantoin monohyd/m-cryst [Macrobid] 100 mg capsule 100 mg PO BID 5 Days Qty: 10 0RF Rx Instructions: must administer with a meal/food ondansetron 4 mg tablet,disintegrating 4 mg PO Q6H PRN (Reason: nausea and vomiting) Qty: 10 0RF No Action fluticasone propion-salmeterol [Advair HFA] 115-21 mcg/actuation HFA aerosol inhaler 2 inh inhalation Patient Comments: INHALE 2 PUFFS BY MOUTH TWICE DAILY ondansetron HCl 4 mg tablet 4 mg PO Q8H Qty: 30 1RF Classic 28 mg iron- 800 mcg tablet 1 tab PO DAILY 30 Days Qty: 30 3RF albuterol sulfate [Ventolin HFA] 90 mcg/actuation HFA aerosol inhaler 2 puff inhalation QID PRN (Reason: shortness of breath or wheezing) Qty: 8.5 5RF omeprazole 10 mg capsule,delayed release(DR/EC) 10 mg PO DAILY Qty: 14 0RF Referrals Follow up/Referrals: Michell Batres APRN [Primary Care Provider] - See instructions Activity Restrictions/Add. Instructions Additional Instructions/Restrictions: Return to the emergency department with any worsening signs or symptoms, take all medications as prescribed, follow-up with your MANAGER OF MAINTENANCE. Clinical Impressions Clinical Impression: Asymptomatic bacteriuria during , , Left flank pain Nausea & vomiting Qualifiers: Vomiting type: unspecified Qualified Code(s): R11.2 - Nausea with vomiting, unspecified Instructions Patient Instructions: DI for Acute Abdominal Pain Print Language Print Language: Salvadorean Discharge ED Provider: Last Arcos General Adult HPI <RASHMI Arredondo - Last Filed: 03/11/25 16:50> General Chief complaint: Abdominal Pain Stated complaint: 14 wks pain left/abd boggs dizziness Time Seen by Provider: 01/27/25 14:45 Mode of Arrival: Ambulatory Source of Information: Patient Description of Symptoms (Recalled from ER Triage Doc. by RN): Pt presents stating she is 14 weeks and is having sharp left sided abdominal pain. Pt states she has been having a constant headache since sunday and has been feeling dizzy History of Present Illness HPI narrative: 24-year-old G4, female presents to the emergency department at approximately 14 weeks gestation, for left-sided abdominal/flank pain for 5 days, admits nausea and vomiting which is common for her during this , she has had uncomplicated thus far, has regular MANAGER OF MAINTENANCE follow-ups, last ultrasound showed documented IUP, she denies any vaginal discharge vaginal irritation, no vaginal bleeding, no trauma no bending lifting twisting injury, no fever chills chest pain, does admit to headache, and some intermittent lightheadedness/dizziness, no sore throat, no constipation no diarrhea, last bowel movement was today, with a past medical history consistent with anxiety/depression, obesity, club foot, GERD. Denies any history of substance abuse, initial triage vitals unremarkable. Onset (ago): day(s) Related Data Home Medications ?Medication ?Instructions ?Recorded ?Confirmed fluticasone propionate 115 2 inh inhalation 01/09/25 01/16/25 mcg-salmeterol 21 mcg/actuation HFA inhaler (Advair HFA) Previous Rx's ?Medication ?Instructions ?Recorded omeprazole 10 mg capsule,delayed 10 mg PO DAILY #14 caps 11/28/24 release vits no.126-ferrous fum 1 tab PO DAILY 30 days #30 tabs 12/09/24 28 mg iron-folic acid 800 mcg tablet (Classic ) albuterol sulfate 90 mcg/actuation 2 puff inhalation QID PRN 01/02/25 aerosol inhaler (Ventolin HFA) shortness of breath or wheezing #8.5 grams ondansetron HCl 4 mg tablet 4 mg PO Q8H #30 tabs 01/09/25 nitrofurantoin 100 mg PO BID 5 days #10 caps 01/27/25 monohydrate/macrocrystals 100 mg capsule (Macrobid) ondansetron 4 mg disintegrating 4 mg PO Q6H PRN nausea and 01/27/25 tablet vomiting #10 tabs Allergies Allergy/AdvReac Type Severity Reaction Status Date / Time prednisolone AdvReac Severe Hives Verified 01/09/25 10:57 PFS <RASHMI Arredondo - Last Filed: 01/27/25 16:50> [facility] Disclaimer: The information contained in this section may have been updated after the patient was seen, as this information can be updated by other users. Medical History History of anxiety History of asthma Surgical History H/O section 2016, 2020 H/O clubfoot correction Age 9 months old in [facility] Social History Smoking Status: Never smoker alcohol intake: never current occupational status: other Travel in the last 8 weeks: None Have you lived/traveled outside US in past 30 days?: No Contact w/someone who lives/traveled outside US past 30 days?: No Exposure to someone with infectious disease in past 14 days?: No Do you have a fever (greater than 100.4 F or 38 C)?: No Have you tested positive for COVID-19: No Exposed to someone with COVID-19 in past 14 days?: No Do you have a sore throat?: No Do you have a cough?: No Do you have any weakness?: No Do you have any diarrhea?: No Are you experiencing any unusual bleeding?: No Do you have any muscle aches/pain?: No Do you have any abdominal pain?: Yes Are you experiencing loss of taste or smell?: No Other Medical History Have you received the Pneumonia Vaccine: No <RASHMI Arredondo - Last Filed: 01/27/25 16:50> ROS Obtained: Yes All systems reviewed & no additional complaints except as documented Physical Exam <RASHMI Arredondo - Last Filed: 01/27/25 16:50> General General appearance: alert and in no apparent distress Head Head exam: atraumatic and normocephalic Eye Eye exam: Present PERRL and EOMI ENT ENT exam: Present mucous membranes moist Neck Neck exam: Present normal inspection Chest Chest inspection: Present normal inspection and symmetric chest wall rise Respiratory Respiratory exam: Present normal lung sounds bilaterally; Absent respiratory distress, wheezes or stridor Cardiovascular Cardiovascular exam: Present regular rate and normal rhythm; Absent bradycardia or tachycardia Abdominal Exam Abdominal exam: Present soft; Absent tenderness, guarding or rebound Abdominal tenderness: Present LUQ, LLQ and mild Comment: Mild lower quadrant left upper quadrant abdominal tenderness palpation Extremities Exam Extremities exam: Present normal inspection Neurological Exam Neurological exam: Present alert and oriented X3 Psychiatric Psychiatric exam: Present normal affect Skin Skin exam: Present warm and dry Medical Decision Making <RASHMI Arredondo - Last Filed: 01/27/25 16:50> Medical Records Medical records reviewed: Yes I reviewed the patient's medical records. Screening: Per USPSTF and CDC recommendations, given the prevalence of disease in our region, it is our hospital?s policy to screen for HIV and viral Hepatitis for all patients aged 18 and over and those with ongoing risk factors. [place] Inquiry Pt receiving controlled substance: No [place] was queried for this patient: No Vital Signs: 01/27/25 13:56 01/27/25 14:40 Temperature 98.2 F Temperature Source Oral Pulse Rate 84 Pulse Rate [Right] 103 H Respiratory Rate 18 Blood Pressure 132/112 H Blood Pressure [Right Arm] 136/79 Blood Pressure Mean [Right Arm] 98 Blood Pressure Source [Right Arm] Automatic Cuff Blood Pressure Position [Right Arm] Sitting 02 Sat by Pulse Oximetry 98 97 Oxygen Delivery Method Room Air Room Air Lab Data Lab results reviewed: Yes I reviewed the patient's lab results. Lab Results 01/27/25 14:05: WBC 9.0, RBC 4.43, Hgb 12.7, Hct 38.4, MCV 86.7, MCH 28.7, MCHC 33.1, RDW 15.5, Plt Count 226, MPV 11.4 H, Neut % (Auto) 69.1, Lymph % (Auto) 24.2, [place] % (Auto) 5.1, Eos % (Auto) 1.0, Baso % (Auto) 0.3, Neut # (Auto) 6.2, Lymph # (Auto) 2.2, [place] # (Auto) 0.5, Eos # (Auto) 0.1, Baso # (Auto) 0.0, S odium 135 L, Potassium 3.5, Chloride 107, Carbon Dioxide 22, Anion Gap 9.5, BUN 6 L, Creatinine 0.60, Estimated Creat Clear 121, Estimated GFR 124, Est GFR ( Amer) 150, Glucose 91, Calcium 9.2, Total Bilirubin 0.3, AST 26, ALT 23, Alkaline Phosphatase 65, Total Protein 7.6, Albumin 4.4, Globulin 3.2, Albumin/Globulin Ratio 1.4, Lipase 35, SARS-CoV-2 (PCR) Not detected, Influenza A Untype (PCR) Not detected, Influenza Type B (PCR) Not detected 01/27/25 14:11: Magnesium 1.8, HCG, Quant [id number] H 01/27/25 14:40: Urine Color Yellow, Urine Appearance Slightly cloudy, Urine pH 6.0, Ur Specific [place] 1.030, Urine Protein Negative, Urine Glucose (UA) Negative, Urine Ketones Negative, Urine Blood Negative, Urine Nitrate Negative, Urine Bilirubin Negative, Urine Urobilinogen 0.2, Ur Leukocyte Esterase Negative, Urine RBC None, Urine WBC Occasional, Ur Squamous Epith Cells 5-10, Urine Bacteria 2+ 01/27/25 14:05 01/27/25 14:05 Orders (Tests/Meds): ORDERS Category Date Time Status POCUS Point of Care (ER Only) Stat Exams 01/27/25 15:47 Ordered Complete Blood Count Auto Diff Stat Lab 01/27/25 14:05 Completed Comprehensive Metabolic Panel Stat Lab 01/27/25 14:05 Completed HCG,Quantitative Stat Lab 01/27/25 14:11 Completed Lipase Stat Lab 01/27/25 14:05 Completed Magnesium Stat Lab 01/27/25 14:11 Completed Rapid PCR Covid and Flu A/B Stat Lab 01/27/25 14:05 Completed Urinalysis and Microscopic Stat Lab 01/27/25 14:40 Completed Urine Culture Stat Micro 01/27/25 14:40 Received US OB transvaginal Stat Ultrasound 01/27/25 14:43 Completed Medical Decision Narrative: 24-year-old female presents the emergency department with left-sided abdominal pain lightheadedness nausea vomiting, differential diagnose include but limited to cardiac arrhythmia, electrolyte disturbance, premises gravidarum, acute UTI, nephrolithiasis, ureterolithiasis, round ligament pain, ectopic , molar , ovarian cyst, pancreatitis, acute URI. I discussed patient case with attending physician Dr. Arcos and Dr. oDrantes. Will obtain EKG, hCG quant, rapid PCR COVID and flu, urinalysis, CBC CMP lipase, mag level. CBC unremarkable, CMP unremarkable, COVID-19 and influenza A and B are negative. Obtain POCUS ultrasound of the left kidney. Attending physician performed a bedside POCUS ultrasound, see full ultrasound dictation for results. CMP is notable for hCG quant at 69,396, otherwise grossly unremarkable CMP. I reviewed the patient's TVUS along the corresponding radiologic report. There is a viable fetus with uterine cavity heart rate activity is present, fetus measures 13 weeks 3 days consistent with her last menstrual period, placenta is posterior grade 1, fluid appears within normal limits, both ovaries are difficult to visualize but appear normal, no fluid in the cul-de-sac. Patient has 2+ bacteria, 5-10 squamous cells, occasional WBCs, negative leukocyte esterase, negative nitrites otherwise unremarkable urine. Discussed the results with the patient at the bedside will treat the patient for asymptomatic bacteriuria, will treat with Macrobid p.o. as prescribed, patient would also like some Zofran for nausea as she has had Zofran in the past with this and has helped. Will prescribe milligram p.o. Zofran for , all risk and benefits of the medication discussed with the patient the bedside patient and family agree with current treatment plan/discharge plan. Up with her MANAGER OF MAINTENANCE as directed. Strict ED return precautions given. <Last Arcos MD - Last Filed: 01/27/25 15:10> Vital Signs: 01/27/25 13:56 01/27/25 14:40 Temperature 98.2 F Temperature Source Oral Pulse Rate 84 Pulse Rate [Right] 103 H Respiratory Rate 18 Blood Pressure 132/112 H Blood Pressure [Right Arm] 136/79 Blood Pressure Mean [Right Arm] 98 Blood Pressure Source [Right Arm] Automatic Cuff Blood Pressure Position [Right Arm] Sitting 02 Sat by Pulse Oximetry 98 97 Oxygen Delivery Method Room Air Room Air Lab Data Lab Results 01/27/25 14:05: WBC 9.0, RBC 4.43, Hgb 12.7, Hct 38.4, MCV 86.7, MCH 28.7, MCHC 33.1, RDW 15.5, Plt Count 226, MPV 11.4 H, Neut % (Auto) 69.1, Lymph % (Auto) 24.2, [place] % (Auto) 5.1, Eos % (Auto) 1.0, Baso % (Auto) 0.3, Neut # (Auto) 6.2, Lymph # (Auto) 2.2, [place] # (Auto) 0.5, Eos # (Auto) 0.1, Baso # (Auto) 0.0, S odium 135 L, Potassium 3.5, Chloride 107, Carbon Dioxide 22, Anion Gap 9.5, BUN 6 L, Creatinine 0.60, Estimated Creat Clear 121, Estimated GFR 124, Est GFR ( Amer) 150, Glucose 91, Calcium 9.2, Total Bilirubin 0.3, AST 26, ALT 23, Alkaline Phosphatase 65, Total Protein 7.6, Albumin 4.4, Globulin 3.2, Albumin/Globulin Ratio 1.4, Lipase 35, SARS-CoV-2 (PCR) Not detected, Influenza A Untype (PCR) Not detected, Influenza Type B (PCR) Not detected 01/27/25 14:11: Magnesium 1.8, HCG, Quant [id number] H 01/27/25 14:40: Urine Color Yellow, Urine Appearance Slightly cloudy, Urine pH 6.0, Ur Specific [place] 1.030, Urine Protein Negative, Urine Glucose (UA) Negative, Urine Ketones Negative, Urine Blood Negative, Urine Nitrate Negative, Urine Bilirubin Negative, Urine Urobilinogen 0.2, Ur Leukocyte Esterase Negative, Urine RBC None, Urine WBC Occasional, Ur Squamous Epith Cells 5-10, Urine Bacteria 2+ Orders (Tests/Meds): ORDERS Category Date Time Status POCUS Point of Care (ER Only) Stat Exams 01/27/25 15:47 Ordered Complete Blood Count Auto Diff Stat Lab 01/27/25 14:05 Completed Comprehensive Metabolic Panel Stat Lab 01/27/25 14:05 Completed HCG,Quantitative Stat Lab 01/27/25 14:11 Completed Lipase Stat Lab 01/27/25 14:05 Completed Magnesium Stat Lab 01/27/25 14:11 Completed Rapid PCR Covid and Flu A/B Stat Lab 01/27/25 14:05 Completed Urinalysis and Microscopic Stat Lab 01/27/25 14:40 Completed Urine Culture Stat Micro 01/27/25 14:40 Received US OB transvaginal Stat Ultrasound 01/27/25 14:43 Completed ECG Data Tracing #1: I reviewed this ECG and interpreted as documented below: (Sinus rhythm 87 bpm with MI interval 134, QRS 80, QTc 376. Normal axis. No acute ischemic change) Critical Care <RASHMI Arredondo - Last Filed: 01/27/25 16:50> Critical Care Time Critical Care Time: No
--- NOTE | 2025-01-27 15:05 | PC.NURSE ---
pt to US via wheelchair
--- NOTE | 2025-01-27 16:09 | PC.NURSE ---
Dr. Zheng spoke with Dr. Dorantes regarding US results
[2025-01-27 16:11] LABS: Magnesium 1.8 mg/dl (1.6-2.3)
--- NOTE | 2025-01-27 16:33 | PC.NURSE ---
I called and spoke to Anahi in the lab inquiring about the urine results. She states they are about to run the micro then will result it. Per Maggie it will be about 5 minutes.
[2025-01-27 16:36] LABS: Appearance,Urine Slightly Cloudy (Clear); Bilirubin,Urine Negative (Negative); Blood, Urine Negative (Negative); Color,Urine Yellow (Yellow); Glucose,Urine (UA) Negative (Negative); Ketones,Urine Negative (Negative); Nitrate,Urine Negative (Negative); Protein,Urine Negative (Negative)
[2025-01-27 16:37] LABS: Bacteria,Urine 2+ /lpf; Leukocyte Esterase,Urine Negative (Negative); Urobilinogen,Urine 0.2 EU/dl (0.2); WBC,Urine Occasional #/hpf (0-3)
[2025-01-27 17:01] VITALS: BP 105/61; PULSE 90; RESP 16; TEMP 36.8; O2SAT 98
== END 2025-01-27 17:02 | disposition home or self-care (01) ==
PROVIDERS: Physician Assistant; Emergency Provider Emergency Medicine; PCP Nurse Practitioner Family
DX: O99.891 Other specified diseases and conditions complicating pregnancy (principal); R10.9 Unspecified abdominal pain; R11.2 Nausea with vomiting, unspecified; R51.9 Headache, unspecified; R42 Dizziness and giddiness; Z3A.14 14 weeks gestation of pregnancy
CPT/HCPCS: 76817; 80053; 81001; 83690; 83735; 84702; 85025; 87086; 87636; 93005; 99284

== ENCOUNTER 2025-02-08 13:52 | Emergency (ER) | payer OTHER, SELFPAY ==
[2025-02-08 14:11] VITALS: BP 136/69; PULSE 92; RESP 18; TEMP 36.8; O2SAT 100; BMI 36.6
[2025-02-08 14:23] VITALS: BP 94/62; PULSE 88; O2SAT 100
--- NOTE | 2025-02-08 14:26 | ED_ITS ---
Discharge Plan Disposition Patient Disposition: Home, Self-Care Prescriptions Prescriptions: New amoxicillin-pot clavulanate 875-125 mg tablet 1 tab PO BID 5 Days Qty: 10 0RF clotrimazole [Clotrimazole-7] 1 % cream 1 appful vaginal HS 7 Days Qty: 45 0RF No Action fluticasone propion-salmeterol [Advair HFA] 115-21 mcg/actuation HFA aerosol inhaler 2 inh inhalation Patient Comments: INHALE 2 PUFFS BY MOUTH TWICE DAILY Classic 28 mg iron- 800 mcg tablet 1 tab PO DAILY 30 Days Qty: 30 3RF albuterol sulfate [Ventolin HFA] 90 mcg/actuation HFA aerosol inhaler 2 puff inhalation QID PRN (Reason: shortness of breath or wheezing) Qty: 8.5 5RF omeprazole 10 mg capsule,delayed release(DR/EC) 10 mg PO DAILY Qty: 14 0RF nitrofurantoin monohyd/m-cryst [Macrobid] 100 mg capsule 100 mg PO BID 5 Days Qty: 10 0RF Rx Instructions: must administer with a meal/food ondansetron 4 mg tablet,disintegrating 4 mg PO Q6H PRN (Reason: nausea and vomiting) Qty: 10 0RF Referrals Follow up/Referrals: Michell Batres APRN [Primary Care Provider] - See instructions Clinical Impressions Clinical Impression: Acute vulvovaginitis, UTI (urinary tract infection) Instructions Patient Instructions: DI for Urinary Tract Infection (UTI), DI for Urinary Tract Infection in Children Print Language Print Language: Indonesian Discharge ED Provider: Lenora Rosenthal General Adult HPI General Chief complaint: Urogenital-Female Stated complaint: poss UTI, pain while urinating, swelling Time Seen by Provider: 02/08/25 14:26 Mode of Arrival: Ambulatory Source of Information: Patient Description of Symptoms (Recalled from ER Triage Doc. by RN): Pt presents for evaluation of pain with urination, and frequent urination. Pt had a urine sample collected on sunday at her OBs office and it resulted normal. Pt was also diagnosed with a UTI on January 27, and completed the full course of antibiotics. Pt is also 15weeks History of Present Illness HPI narrative: Patient is a 24-year-old presenting with vaginal itching and burning. Patient was recently treated for urinary tract infection completed her course of antibiotics and has developed swelling of her vulva with itching pain and vaginal discharge. No flank pain nausea or vomiting. Related Data Home Medications ?Medication ?Instructions ?Recorded ?Confirmed fluticasone propionate 115 2 inh inhalation 01/09/25 02/06/25 mcg-salmeterol 21 mcg/actuation HFA inhaler (Advair HFA) Previous Rx's ?Medication ?Instructions ?Recorded omeprazole 10 mg capsule,delayed 10 mg PO DAILY #14 caps 11/28/24 release vits no.126-ferrous fum 1 tab PO DAILY 30 days #30 tabs 12/09/24 28 mg iron-folic acid 800 mcg tablet (Classic ) albuterol sulfate 90 mcg/actuation 2 puff inhalation QID PRN 01/02/25 aerosol inhaler (Ventolin HFA) shortness of breath or wheezing #8.5 grams nitrofurantoin 100 mg PO BID 5 days #10 caps 01/27/25 monohydrate/macrocrystals 100 mg capsule (Macrobid) ondansetron 4 mg disintegrating 4 mg PO Q6H PRN nausea and 01/27/25 tablet vomiting #10 tabs amoxicillin 875 mg-potassium 1 tab PO BID 5 days #10 tabs 02/08/25 clavulanate 125 mg tablet clotrimazole 1 % vaginal cream 1 appful vaginal HS 7 days #45 02/08/25 (Clotrimazole-7) grams Allergies Allergy/AdvReac Type Severity Reaction Status Date / Time prednisolone AdvReac Severe Hives Verified 02/06/25 13:18 [facility] Disclaimer: The information contained in this section may have been updated after the patient was seen, as this information can be updated by other users. Medical History History of anxiety History of asthma Surgical History H/O section 2016, 2020 H/O clubfoot correction Age 9 months old in [facility] Social History Smoking Status: Never smoker alcohol intake: never current occupational status: other Travel in the last 8 weeks: None Have you lived/traveled outside US in past 30 days?: No Contact w/someone who lives/traveled outside US past 30 days?: No Exposure to someone with infectious disease in past 14 days?: No Do you have a fever (greater than 100.4 F or 38 C)?: No Have you tested positive for COVID-19: No Exposed to someone with COVID-19 in past 14 days?: No Do you have a sore throat?: No Do you have a cough?: No Do you have any weakness?: No Do you have any diarrhea?: No Are you experiencing any unusual bleeding?: No Do you have any muscle aches/pain?: No Do you have any abdominal pain?: No Are you experiencing loss of taste or smell?: No Other Medical History Have you received the Pneumonia Vaccine: No ROS Obtained: Yes All systems reviewed & no additional complaints except as documented Physical Exam General General appearance: alert and in distress ENT ENT exam: Present normal exam and normal oropharynx Respiratory Respiratory exam: Absent respiratory distress Cardiovascular Cardiovascular exam: Present regular rate and normal rhythm Abdominal Exam Abdominal exam: Present soft and tenderness (Minimal tenderness right lower quadrant, gravid uterus) External exam: Present erythema, tenderness (Posterior vaginal opening), swelling and other (Thick white discharge) Back Exam Back exam: Absent CVA tenderness (R) or CVA tenderness (L) Neurological Exam Neurological exam: Present alert Medical Decision Making Medical Records Screening: Per USPSTF and CDC recommendations, given the prevalence of disease in our region, it is our hospital?s policy to screen for HIV and viral Hepatitis for all patients aged 18 and over and those with ongoing risk factors. [place] Inquiry Pt receiving controlled substance: No Vital Signs: 02/08/25 14:11 02/08/25 14:23 02/08/25 15:05 Temperature 98.2 F Temperature Source Oral Pulse Rate 88 78 Pulse Rate [Right] 92 H Respiratory Rate 18 Blood Pressure 94/62 L 104/58 L Blood Pressure [Right Arm] 136/69 Blood Pressure Mean [Right Arm] 91 Blood Pressure Source [Right Arm] Automatic Cuff Blood Pressure Position [Right Arm] Sitting 02 Sat by Pulse Oximetry 100 100 96 Oxygen Delivery Method Room Air Room Air Room Air Lab Data Lab Results 02/08/25 14:23: Urine Color Yellow, Urine Appearance Slightly cloudy, Urine pH 6.0, Ur Specific [place] >= 1.030, Urine Protein Negative, Urine Glucose (UA) Negative, Urine Ketones Trace, Urine Blood Negative, Urine Nitrate Negative, Urine Bilirubin Negative, Urine Urobilinogen 0.2, Ur Leukocyte Esterase Moderate, Urine RBC None, Urine WBC 20-50, Ur Squamous Epith Cells 20-50, Urine Bacteria 3+, Urine Mucus 1+ Orders (Tests/Meds): ORDERS Category Date Time Status UA [Urinalysis and Microscopic] Stat Lab 02/08/25 14:23 Completed Urine Culture Stat Micro 02/08/25 14:23 Received Medical Decision Narrative: In summary, this 24-year-old female presents to the emergency department today with vaginal burning itching and pain. On initial evaluation patient is hemodynamically stable saturating appropriately on room air in no acute distress afebrile. Differential diagnosis includes but is not limited to pyelonephritis urinary tract infection vulvovaginitis. Based on these concerns, I ordered UA with culture. Exam is most concerning for Paula vulvovaginitis. Labs personally reviewed demonstrate pyuria, nitrite negative, bacteria however contaminated sample. Patient is still having dysuria despite being treated with nitrofurantoin. Will treat with Augmentin for urinary tract infection. Low suspicion of pyelonephritis as patient has no flank pain. Treating candidal vulvovaginitis with topical Az[place]. Patient agreeable to discharge with strict return precautions. Critical Care Critical Care Time Critical Care Time: No
[2025-02-08 14:29] LABS: Microscopic, Urine URINE MICROSCOPIC (MICROSCOPIC)
[2025-02-08 14:33] LABS: Bilirubin,Urine Negative (Negative); Blood, Urine Negative (Negative); Color,Urine YELLOW (Yellow); Glucose,Urine (UA) Negative (Negative); Ketones,Urine TRACE (Negative); Leukocyte Esterase,Urine MODERATE (Negative); Nitrate,Urine Negative (Negative); Protein,Urine Negative (Negative); Specific Gravity, Urine >= 1.030 (1.005-1.030); Urobilinogen,Urine 0.2 EU/dl (0.2)
[2025-02-08 14:40] LABS: Appearance,Urine Slightly Cloudy (Clear)
[2025-02-08 15:05] VITALS: BP 104/58; PULSE 78; O2SAT 96
[2025-02-08 15:09] LABS: Squamous Epithelial Cell,Urine 20-50 #/hpf (0-5); WBC,Urine 20-50 #/hpf (0-3)
[2025-02-08 15:10] LABS: Bacteria,Urine 3+ /lpf; Mucus,Urine 1+ /lpf
[2025-02-08 15:41] VITALS: BP 106/60; PULSE 78; RESP 18; TEMP 36.8; O2SAT 98
== END 2025-02-08 15:43 | disposition home or self-care (01) ==
PROVIDERS: Emergency Provider Student in an Organized Health Care Education/Training Program; PCP Nurse Practitioner Family
DX: N39.0 Urinary tract infection, site not specified (principal); N76.0 Acute vaginitis; R30.9 Painful micturition, unspecified; R35.0 Frequency of micturition
CPT/HCPCS: 81001; 87086; 99283

== ENCOUNTER 2025-02-28 20:59 | Emergency (ER) | payer OTHER, SELFPAY ==
[2025-02-28] VITALS (7 sets, daily range): BP systolic 100–134; BP diastolic 62–105; PULSE 85–102; RESP 16–18; TEMP 36.6–37.7; O2SAT 97–100; BMI 38.9
[2025-02-28 21:14] LABS: Microscopic, Urine URINE MICROSCOPIC (MICROSCOPIC)
[2025-02-28 21:15] LABS: Appearance,Urine CLEAR (Clear); Bilirubin,Urine Negative (Negative); Blood, Urine Negative (Negative); Color,Urine YELLOW (Yellow); Glucose,Urine (UA) Negative (Negative); Ketones,Urine Negative (Negative); Leukocyte Esterase,Urine Negative (Negative); Nitrate,Urine Negative (Negative); Protein,Urine Negative (Negative); Urobilinogen,Urine 0.2 EU/dl (0.2)
--- NOTE | 2025-02-28 21:23 | PC.NURSE ---
FHT 146 @ BEDSIDE VIA DOPPLER
[2025-02-28 21:24] LABS: Bacteria,Urine Trace /lpf
[2025-02-28 21:32] LABS: Basophils % 0.3 % (0.1-2.0); Eosinophils # 0.1 K/mm3 (0.0-0.4); Eosinophils % 0.8 % (0.1-12.0); Hematocrit 35.8 % (37.0-47.0); Lymphocytes # 2.5 K/mm3 (0.7-4.5); Lymphocytes % 24.1 % (10-50); Mean Corpuscular HGB Conc 33.5 g/dL (31.8-35.4); Mean Corpuscular Hemoglobin 29.1 pg (27.0-31.2); Mean Corpuscular Volume 86.9 fl (81-99); Mean Platelet Volume 11.3 fl (7.4-10.4); Monocytes # 0.5 K/mm3 (0.1-1.0); Monocytes % 5.2 % (1.7-9.3); Neutrophils # 7.1 K/mm3 (1.8-7.8); Neutrophils % 68.9 % (37.0-80.0); Nucleated Red Blood Cells # 0 10^3/uL; Nucleated Red Blood Cells % 0 %; Platelet Count 231 K/mm3 (142-424); Red Blood Count 4.12 M/mm3 (4.20-5.40); Red Cell Distribution Width 15.7 % (11.5-17.5); Red Cell Distribution Width-SD 49.5 fL; White Blood Count 10.3 K/mm3 (4.8-10.8)
[2025-02-28 21:38] LABS: Albumin Level 3.6 g/dl (3.5-5.0); Chloride 107 mmol/L (98-107); Potassium 3.5 mmoL/L (3.5-5.1); Sodium 137 mmol/L (136-145)
[2025-02-28 21:40] LABS: Blood Urea Nitrogen 7 mg/dl (7-17); Creatinine Clearance Estimated 276 mL/min (50-200); Estimated Glomerular Filt Rate 153 ml/min (>60); GFR (African American) 185 ML/MIN (>60)
[2025-02-28 21:41] LABS: Alanine Aminotransferase 18 U/L (12-78); Alkaline Phosphatase 80 U/L (38-126); Anion Gap 11.5 mEq/L (5-15); Aspartate Amino Transferase 22 U/L (14-36); Bilirubin,Total 0.5 mg/dl (0.2-1.3); Calcium 9.2 mg/dl (8.4-10.2); Carbon Dioxide 22 mmol/L (22.0-30.0); Globulin 3.7 g/dL (1.3-3.2); Glucose 92 mg/dl (74-100); Lipase 51 U/L (23-300); Total Protein,Serum 7.3 g/dl (6.3-8.2)
--- NOTE | 2025-02-28 21:45 | HMH.EDGENADL ---
Discharge Plan Disposition Patient Disposition: Home, Self-Care Condition: Good Prescriptions Prescriptions: New cephalexin 500 mg capsule 500 mg PO BID 5 Days Qty: 10 0RF diclofenac sodium 1 % gel 2 g topical QID 14 Days Qty: 100 0RF Rx Instructions: apply to single elbow, wrist or hand; for hand includes palm/fingers/back of hand Discontinued nitrofurantoin monohyd/m-cryst [Macrobid] 100 mg capsule 100 mg PO BID 5 Days Qty: 10 0RF Rx Instructions: must administer with a meal/food amoxicillin-pot clavulanate 875-125 mg tablet 1 tab PO BID 5 Days Qty: 10 0RF No Action fluticasone propion-salmeterol [Advair HFA] 115-21 mcg/actuation HFA aerosol inhaler 2 inh inhalation Patient Comments: INHALE 2 PUFFS BY MOUTH TWICE DAILY Classic 28 mg iron- 800 mcg tablet 1 tab PO DAILY 30 Days Qty: 30 3RF albuterol sulfate [Ventolin HFA] 90 mcg/actuation HFA aerosol inhaler 2 puff inhalation QID PRN (Reason: shortness of breath or wheezing) Qty: 8.5 5RF omeprazole 10 mg capsule,delayed release(DR/EC) 10 mg PO DAILY Qty: 14 0RF ondansetron 4 mg tablet,disintegrating 4 mg PO Q6H PRN (Reason: nausea and vomiting) Qty: 10 0RF clotrimazole [Clotrimazole-7] 1 % cream 1 appful vaginal HS 7 Days Qty: 45 0RF Referrals Follow up/Referrals: Michell Batres APRN [Primary Care Provider] - See instructions Activity Restrictions/Add. Instructions Additional Instructions/Restrictions: I have prescribed a course of antibiotics for the bacteria in your urine which we typically treat regardless of symptoms in . It is possible that your pain is due to round ligament pain. I have also prescribed a topical pain reliever for you to use as needed. I would recommend this in addition to Tylenol and exercises for round ligament pain. Please follow-up with your OB doctor and return with any new or worsening symptoms. The electronic medical record did not have aftercare instructions for round ligament pain but stretches which may help your symptoms can be found online. Clinical Impressions Clinical Impression: Abdominal pain during Print Language Print Language: Omani Discharge ED Provider: Munir Jamison Adult HPI <Samaria Valle ([facility]), [employer] - Last Filed: 02/28/25 21:47> General Chief complaint: Abdominal Pain Stated complaint: 18 weeks abdominal painleft side pain Time Seen by Provider: 02/28/25 21:08 Mode of Arrival: Ambulatory Source of Information: Patient Description of Symptoms (Recalled from ER Triage Doc. by RN): Patient presents with left side abdominal pain x3-4 days. Patient is 18 weeks . History of Present Illness HPI narrative: 24-year-old female presents for left flank and left lower quad pain for 3 to 4 days. Patient states she is 18 weeks denies vaginal bleeding or cramping Related Data Home Medications ?Medication ?Instructions ?Recorded ?Confirmed fluticasone propionate 115 2 inh inhalation 01/09/25 02/06/25 mcg-salmeterol 21 mcg/actuation HFA inhaler (Advair HFA) Previous Rx's ?Medication ?Instructions ?Recorded omeprazole 10 mg capsule,delayed 10 mg PO DAILY #14 caps 11/28/24 release vits no.126-ferrous fum 1 tab PO DAILY 30 days #30 tabs 12/09/24 28 mg iron-folic acid 800 mcg tablet (Classic ) albuterol sulfate 90 mcg/actuation 2 puff inhalation QID PRN 01/02/25 aerosol inhaler (Ventolin HFA) shortness of breath or wheezing #8.5 grams ondansetron 4 mg disintegrating 4 mg PO Q6H PRN nausea and 01/27/25 tablet vomiting #10 tabs clotrimazole 1 % vaginal cream 1 appful vaginal HS 7 days #45 02/08/25 (Clotrimazole-7) grams cephalexin 500 mg capsule 500 mg PO BID 5 days #10 caps 02/28/25 diclofenac sodium 1 % topical gel 2 g topical QID 14 days #100 grams 02/28/25 Allergies Allergy/AdvReac Type Severity Reaction Status Date / Time prednisolone AdvReac Severe Hives Verified 02/06/25 13:18 PFSH <Samaria Valle ([facility]), [employer] - Last Filed: 02/28/25 21:47> PFSH Disclaimer: The information contained in this section may have been updated after the patient was seen, as this information can be updated by other users. Medical History , [employer]) History of anxiety History of asthma Surgical History , [employer]) H/O section H/O clubfoot correction Social History , [employer]GER) Smoking Status: Never smoker alcohol intake: never current occupational status: other Travel in the last 8 weeks: None Have you lived/traveled outside [place] in past 30 days?: No Contact w/someone who lives/traveled outside US past 30 days?: No Exposure to someone with infectious disease in past 14 days?: No Do you have a fever (greater than 100.4 F or 38 C)?: No Have you tested positive for COVID-19: No Exposed to someone with COVID-19 in past 14 days?: No Do you have a sore throat?: No Do you have a cough?: No Do you have any weakness?: No Do you have any diarrhea?: No Are you experiencing any unusual bleeding?: No Do you have any muscle aches/pain?: Yes Do you have any abdominal pain?: Yes Are you experiencing loss of taste or smell?: No Other Medical History Have you received the Pneumonia Vaccine: No <Samaria Valle ([facility]), [employer] - Last Filed: 02/28/25 21:47> ROS Obtained: Yes Systems reviewed as appropriate & no additional complaints except as documented Genitourinary Female Genitourinary: Reports system reviewed and no additional complaints, except as documented, Reports as per HPI, Reports flank pain and Reports pelvic pain Physical Exam <[facility] [employer] - Last Filed: 02/28/25 21:47> General General appearance: alert and in no apparent distress ENT ENT exam: Present normal exam Respiratory Respiratory exam: Present normal lung sounds bilaterally Cardiovascular Cardiovascular exam: Present regular rate and normal rhythm Abdominal Exam Abdominal exam: Present soft, tenderness and normal bowel sounds; Absent distention Abdominal tenderness: Present LLQ (Flank) Neurological Exam Neurological exam: Present alert and oriented X3 Skin Skin exam: Present warm and intact Lymphatic Lymphatic Findings: no adenopathy Medical Decision Making <Samaria Valle ([facility]), [employer] - Last Filed: 02/28/25 21:47> Medical Records Medical records reviewed: Yes I reviewed the patient's medical records. Screening: Per USPSTF and CDC recommendations, given the prevalence of disease in our region, it is our hospital?s policy to screen for HIV and viral Hepatitis for all patients aged 18 and over and those with ongoing risk factors. [place] Inquiry Pt receiving controlled substance: No [place] was queried for this patient: No Vital Signs: 02/28/25 21:09 02/28/25 21:15 02/28/25 21:30 Temperature 100 F H Temperature Source Oral Pulse Rate 85 102 H Pulse Rate [Left Radial] 96 H Respiratory Rate 18 Blood Pressure 134/75 109/72 L Blood Pressure [Right Arm] 124/75 Blood Pressure Mean Blood Pressure Mean [Right Arm] 91 Blood Pressure Source [Right Arm] Automatic Cuff 02 Sat by Pulse Oximetry 100 100 97 Oxygen Delivery Method Room Air 02/28/25 21:45 02/28/25 22:00 02/28/25 22:15 Temperature Temperature Source Pulse Rate 100 H 88 89 Pulse Rate [Left Radial] Respiratory Rate Blood Pressure 117/65 100/62 L Blood Pressure [Right Arm] Blood Pressure Mean Blood Pressure Mean [Right Arm] Blood Pressure Source [Right Arm] 02 Sat by Pulse Oximetry 98 100 100 Oxygen Delivery Method 02/28/25 22:15 02/28/25 22:38 Temperature 98 F Temperature Source Pulse Rate 87 Pulse Rate [Left Radial] Respiratory Rate 16 Blood Pressure 122/105 H 110/75 Blood Pressure [Right Arm] Blood Pressure Mean 108 Blood Pressure Mean [Right Arm] Blood Pressure Source [Right Arm] 02 Sat by Pulse Oximetry Oxygen Delivery Method Lab Data Lab results reviewed: Yes I reviewed the patient's lab results. Lab Results 02/28/25 21:06: Urine Color Yellow, Urine Appearance Clear, Urine pH 7.0, Ur Specific [place] 1.020, Urine Protein Negative, Urine Glucose (UA) Negative, Urine Ketones Negative, Urine Blood Negative, Urine Nitrate Negative, Urine Bilirubin Negative, Urine Urobilinogen 0.2, Ur Leukocyte Esterase Negative, Urine RBC None, Urine WBC None, Ur Squamous Epith Cells 3-5, Urine Bacteria Trace 02/28/25 21:25: WBC 10.3, RBC 4.12 L, Hgb 12.0 L, Hct 35.8 L, MCV 86.9, MCH 29.1, MCHC 33.5, RDW 15.7, Plt Count 231, MPV 11.3 H, Neut % (Auto) 68.9, Lymph % (Auto) 24.1, [place] % (Auto) 5.2, Eos % (Auto) 0.8, Baso % (Auto) 0.3, Neut # (Auto) 7.1, Lymph # (Auto) 2.5, [place] # (Auto) 0.5, Eos # (Auto) 0.1, Baso # (Auto) 0.0, Sodium 137, Potassium 3.5, Chloride 107, Carbon Dioxide 22, Anion Gap 11.5, BUN 7, Creatinine 0.50 L, Estimated Creat Clear 276, Estimated GFR 153, Est GFR ( Amer) 185, Glucose 92, Calcium 9.2, Total Bilirubin 0.5, AST 22, ALT 18, Alkaline Phosphatase 80, Total Protein 7.3, Albumin 3.6, Globulin 3.7 H, Albumin/Globulin Ratio 1.0 L, Lipase 51 02/28/25 21:25 02/28/25 21:25 Orders (Tests/Meds): ORDERS Category Date Time Status POCUS Point of Care (ER Only) Stat Exams 02/28/25 22:07 Completed Complete Blood Count Auto Diff Stat Lab 02/28/25 21:25 Completed Comprehensive Metabolic Panel Stat Lab 02/28/25 21:25 Completed Lipase Stat Lab 02/28/25 21:25 Completed Urinalysis and Microscopic Stat Lab 02/28/25 21:06 Completed <Munir Jamison MD - Last Filed: 03/01/25 19:21> Vital Signs: 02/28/25 21:09 02/28/25 21:15 02/28/25 21:30 Temperature 100 F H Temperature Source Oral Pulse Rate 85 102 H Pulse Rate [Left Radial] 96 H Respiratory Rate 18 Blood Pressure 134/75 109/72 L Blood Pressure [Right Arm] 124/75 Blood Pressure Mean Blood Pressure Mean [Right Arm] 91 Blood Pressure Source [Right Arm] Automatic Cuff 02 Sat by Pulse Oximetry 100 100 97 Oxygen Delivery Method Room Air 02/28/25 21:45 02/28/25 22:00 02/28/25 22:15 Temperature Temperature Source Pulse Rate 100 H 88 89 Pulse Rate [Left Radial] Respiratory Rate Blood Pressure 117/65 100/62 L Blood Pressure [Right Arm] Blood Pressure Mean Blood Pressure Mean [Right Arm] Blood Pressure Source [Right Arm] 02 Sat by Pulse Oximetry 98 100 100 Oxygen Delivery Method 02/28/25 22:15 02/28/25 22:38 Temperature 98 F Temperature Source Pulse Rate 87 Pulse Rate [Left Radial] Respiratory Rate 16 Blood Pressure 122/105 H 110/75 Blood Pressure [Right Arm] Blood Pressure Mean 108 Blood Pressure Mean [Right Arm] Blood Pressure Source [Right Arm] 02 Sat by Pulse Oximetry Oxygen Delivery Method Lab Data Lab Results 02/28/25 21:06: Urine Color Yellow, Urine Appearance Clear, Urine pH 7.0, Ur Specific [place] 1.020, Urine Protein Negative, Urine Glucose (UA) Negative, Urine Ketones Negative, Urine Blood Negative, Urine Nitrate Negative, Urine Bilirubin Negative, Urine Urobilinogen 0.2, Ur Leukocyte Esterase Negative, Urine RBC None, Urine WBC None, Ur Squamous Epith Cells 3-5, Urine Bacteria Trace 02/28/25 21:25: WBC 10.3, RBC 4.12 L, Hgb 12.0 L, Hct 35.8 L, MCV 86.9, MCH 29.1, MCHC 33.5, RDW 15.7, Plt Count 231, MPV 11.3 H, Neut % (Auto) 68.9, Lymph % (Auto) 24.1, [place] % (Auto) 5.2, Eos % (Auto) 0.8, Baso % (Auto) 0.3, Neut # (Auto) 7.1, Lymph # (Auto) 2.5, [place] # (Auto) 0.5, Eos # (Auto) 0.1, Baso # (Auto) 0.0, Sodium 137, Potassium 3.5, Chloride 107, Carbon Dioxide 22, Anion Gap 11.5, BUN 7, Creatinine 0.50 L, Estimated Creat Clear 276, Estimated GFR 153, Est GFR ( Amer) 185, Glucose 92, Calcium 9.2, Total Bilirubin 0.5, AST 22, ALT 18, Alkaline Phosphatase 80, Total Protein 7.3, Albumin 3.6, Globulin 3.7 H, Albumin/Globulin Ratio 1.0 L, Lipase 51 Orders (Tests/Meds): ORDERS Category Date Time Status POCUS Point of Care (ER Only) Stat Exams 02/28/25 22:07 Completed Complete Blood Count Auto Diff Stat Lab 02/28/25 21:25 Completed Comprehensive Metabolic Panel Stat Lab 02/28/25 21:25 Completed Lipase Stat Lab 02/28/25 21:25 Completed Urinalysis and Microscopic Stat Lab 02/28/25 21:06 Completed Medical Decision Narrative: Patient presents for left-sided inguinal pain in the setting of with confirmed IUP. She has had similar symptoms in the past. Abdominal exam is overall benign and symptoms likely consistent with round ligament syndrome. Differential diagnosis includes UTI pyelonephritis low clinical index of suspicion for placental abruption, uterine rupture, or other acute surgical pathology. Workup included CBC, CMP, urinalysis which revealed asymptomatic bacteriuria when clinically correlated. [id number] ultrasound revealed no hydronephrosis, intrauterine with heart rate appreciated. Patient is deemed stable for discharge at this time. Antibiotics prescribed for asymptomatic bacteriuria. Return precautions given. Critical Care <Samaria Valle ([facility]), [employer] - Last Filed: 02/28/25 21:47> Critical Care Time Critical Care Time: No
== END 2025-02-28 22:43 | disposition home or self-care (01) ==
PROVIDERS: Emergency Provider Emergency Medicine; PCP Nurse Practitioner Family
DX: O26.892 Other specified pregnancy related conditions, second trimester (principal); R10.32 Left lower quadrant pain; Z3A.18 18 weeks gestation of pregnancy
CPT/HCPCS: 99284; 80053; 81001; 83690; 85025

== ENCOUNTER 2025-03-02 11:59 | Outpatient (CLI) | payer OTHER, SELFPAY ==
[2025-03-02 12:44] LABS: Basophils % 0.2 % (0.1-2.0); Eosinophils # 0.1 K/mm3 (0.0-0.4); Eosinophils % 1.3 % (0.1-12.0); Hematocrit 35.4 % (37.0-47.0); Hemoglobin 11.3 g/dL (12.2-16.2); Lymphocytes % 22.8 % (10-50); Mean Corpuscular HGB Conc 31.9 g/dL (31.8-35.4); Mean Corpuscular Hemoglobin 28.3 pg (27.0-31.2); Mean Corpuscular Volume 88.5 fl (81-99); Mean Platelet Volume 11.5 fl (7.4-10.4); Monocytes # 0.4 K/mm3 (0.1-1.0); Monocytes % 4.9 % (1.7-9.3); Neutrophils % 70.2 % (37.0-80.0); Nucleated Red Blood Cells # 0 10^3/uL; Nucleated Red Blood Cells % 0 %; Platelet Count 208 K/mm3 (142-424); Red Cell Distribution Width 16.2 % (11.5-17.5); Red Cell Distribution Width-SD 52.3 fL; White Blood Count 8.6 K/mm3 (4.8-10.8)
[2025-03-02 14:24] LABS: 25-OH Vitamin D, Total 19.8 ng/mL (30-100)
[2025-03-10 11:30] LABS: D001-IgE D pteronyssinus 6.93 kU/L (Class IV); D002-IgE D farinae 9.26 kU/L (Class IV); E001-IgE Cat Dander 0.23 kU/L (Class 0/I); E005-IgE Dog Dander 0.16 kU/L (Class 0/I); E072-IgE Mouse Urine <0.10 kU/L (Class 0); G002-IgE Bermuda Grass 0.17 kU/L (Class 0/I); G006-IgE Timothy Grass 0.33 kU/L (Class I); Immunoglobulin E, Total 255 IU/mL (6-495); M001-IgE Penicillium chrysogen <0.10 kU/L (Class 0); M002-IgE Cladosporium herbarum <0.10 kU/L (Class 0); M003-IgE Aspergillus fumigatus <0.10 kU/L (Class 0); M006-IgE Alternaria alternata <0.10 kU/L (Class 0); T001-IgE Maple/Box Elder <0.10 kU/L (Class 0); T003-IgE Common Silver Birch <0.10 kU/L (Class 0); T007-IgE Oak, White 0.27 kU/L (Class 0/I); T008-IgE Elm, American 0.11 kU/L (Class 0/I); T010-IgE Walnut 0.12 kU/L (Class 0/I); T011-IgE Maple Leaf Sycamore <0.10 kU/L (Class 0); T014-IgE Cottonwood <0.10 kU/L (Class 0); T015-IgE Ash, White 0.15 kU/L (Class 0/I); T022-IgE Pecan, Hickory 0.13 kU/L (Class 0/I); T070-IgE White Mulberry <0.10 kU/L (Class 0); W001-IgE Ragweed, Short 0.12 kU/L (Class 0/I); W014-IgE Pigweed, Common <0.10 kU/L (Class 0); W018-IgE Sheep Sorrel 0.19 kU/L (Class 0/I)
[2025-03-11 14:50] LABS: Immunoglobulin E, Total 255
== END 2025-03-02 23:59 | disposition home or self-care (01) ==
LOC: LAB 12:00
PROVIDERS: PCP Nurse Practitioner Family; Visit Provider Allergy & Immunology
DX: J45.50 Severe persistent asthma, uncomplicated (principal); E55.9 Vitamin D deficiency, unspecified
CPT/HCPCS: 36415; 82306; 82785; 85025; 86003

== ENCOUNTER 2025-03-06 09:56 | Outpatient (CLI) | payer OTHER, SELFPAY ==
--- NOTE | 2025-03-06 10:00 | US_ITS ---
PROCEDURE: US OB /MATERNAL DETAIL CLINICAL INDICATION: Please schedule for 03/06/25@10-20wk Anatomy COMPARISON: US US OB TRANSVAGINAL from 01/27/2025 FINDINGS: Transabdominal sonographic images of the pelvis were obtained. From her established due date she is 18 weeks 6 days. Single viable intrauterine gestation. Breech position. Placenta: Posteriorplacenta grade 1. There is an average amount of fluid. The cervix appears satisfactory. Closed and measuring 5.12 cm-5.57 cm in length and measured transvaginally. Complete survey performed and was unremarkable on the submitted images as in PACS. No discrete anomalies identified on survey imaging by technologist. Active fetus. Three-vessel cord with satisfactory umbilical cord insertion. 4- chamber heart noted. The rest of the cardiac exam was not well visualized due to maternal body habitus. Survey of brain & ventricles Unremarkable. Cerebellum, thalamus, choroid plexus, cisterna magna appear normal. Face and neck survey unremarkable. Profile, nasion, lips and nose appeared normal. Diaphragm and chest views unremarkable. Abdomen: Both kidneys noted and unremarkable. Stomach and bladder noted and satisfactory. Spine: Survey of the spine satisfactory with no anomalies identified nor imaged. Cervical, thoracic, lower spine appear normal. Both arms and legs noted. Amniotic Fluid: Adequate. Measurements: Average ultrasound age 19weeks 0 days. Estimated due date by ultrasound age 0907/31/2025. Estimated weight 265g BPD = 18weeks 6days HC = 18weeks 5days AC = 18weeks 6days FL = 19weeks 2days Growth Percentile= 49 Heart Rate = 136bpm Cerebellum = 17weeks 3days Humerus = 18weeks 5days HC/AC is 1.19 FL/BPD is 0.71 FL/AC is 0.23 IMPRESSION: 1. Viable fetus in the breech presentation with a posterior placenta grade 1. 2. Subjectively the fluid appears to be within normal limits. 3. cardiac exam was not completed due to position and maternal body habitus. 4. Suggest repeat scan in 2-3 weeks. 5. The rest of the anatomical scan appears normal. 6. biometry is consistent with the dates. Dictated by: Chandana Zheng MD 03/06/2025 20:21 Chandana Zheng MD in [place] 03/06/2025 20:21
== END 2025-03-06 23:59 | disposition home or self-care (01) ==
LOC: RAD 09:57
PROVIDERS: PCP Nurse Practitioner Family; Visit Provider Obstetrics & Gynecology
DX: Z36.3 Encounter for antenatal screening for malformations (principal); O99.891 Other specified diseases and conditions complicating pregnancy; R82.71 Bacteriuria; R11.2 Nausea with vomiting, unspecified; E66.01 Morbid (severe) obesity due to excess calories; Z3A.18 18 weeks gestation of pregnancy
CPT/HCPCS: 76811

== ENCOUNTER 2025-03-27 14:26 | Outpatient (CLI) | payer OTHER, SELFPAY ==
--- NOTE | 2025-03-27 14:30 | US_ITS ---
PROCEDURE: US OB FOLLOW UP CLINICAL INDICATION: schedule within 2-3 wks, repeat heart views COMPARISON: US US OB TRANSVAGINAL from 11/28/2024 US US OB TRANSVAGINAL from 01/27/2025 US US OB /MATERNAL DETAIL from 03/06/2025 FINDINGS: Transabdominal sonographic images of the pelvis were obtained. The following parameters are obtained: From her established due date she is 21weeks 6days Viable fetus in the cephalic presentation with a posterior placenta grade 1. The cervix measures 3.21 cm heart rate: 147bpm bpm. BPD: 21weeks 4days HC: 21weeks 4days AC: 21weeks 4days FL: 21weeks 6days HC/AC: 1.18 FL/BPD: 0.73 FL/AC: 0.23 Growth percentile: 32 Amniotic fluid: MVP 4.69 cm No obvious anomalies evident. Stomach, bladder, kidneys, three-vessel cord, cord insertion appear normal. cardiac scan: Four chamber heart, LVOT, RVOT, three-vessel view, aortic arch appear normal spine: Cervical, thoracic and lower spine appear normal. IMPRESSION: 1. Viable fetus in the cephalic presentation with a posterior placenta grade 1. 2. The fluid is within normal limits with an MVP 4.69 cm. 3. There has been good interval growth with the fetus currently 32nd percentile. 4. cardiac scan appears normal. 5. The rest of the limited anatomical scan appears normal. Dictated by: Chandana Zheng MD 03/28/2025 07:51 Chandana Zheng MD in [place] 03/28/2025 07:51
== END 2025-03-27 23:59 | disposition home or self-care (01) ==
LOC: RAD 14:26
PROVIDERS: PCP Nurse Practitioner Family; Visit Provider Obstetrics & Gynecology
DX: O32.1XX0 Maternal care for breech presentation, not applicable or unspecified (principal); Z3A.21 21 weeks gestation of pregnancy
CPT/HCPCS: 76816

== ENCOUNTER 2025-05-13 09:41 | Outpatient (CLI) | payer OTHER, SELFPAY ==
--- OUTSIDE RECORDS SUMMARY | 2017-04-09 06:19 | XMS_ITS | Continuity of Care Document ---
Author Organization [facility] Address [address] [place] [address] Phone Care Team Providers Care Slope Runner Name Role Phone Mickey Huynh MD Unavailable [...] Diagnoses Date Provider Providers Copied on Encounter [facility], [address], [place], [place], [address], tel:[phone] Michael Gomez student services vice president No Information 7 Lino Arevalo. [address], [place], [place], [address] , [place]. [phone] OFFICE VISIT/NEW LEVEL II [facility], [address], [place], [place], [address], tel:[phone] Michael Gomez student services vice president check (chief complaint) Removal of nereyda 7 Lino Arevalo. [address], [place], [place], [address] , [place]. tel:[phone] [facility]ITAL [facility], [address], [place], [place], [address], [place] tel:[phone] [place] student services vice president Practice Old No Information 7 Elida Marmolejo. [address], [place], [place], [address] , [place]. tel: [phone] INIT HOSP.CARE/LOW [facility], [address], [place], [place], [address], [place] tel:[phone] Jason student services vice president No Information 7 Lino Arevalo. [address], [place], [place], [address] , [place]. tel: [phone] Family History Family Member Type Diagnosis Age At Onset Paternal grandmother Problem (finding) Thyroid disease Paternal grandmother Problem (finding) hyperchol esterolemia in first degree relative Paternal grandmother Problem (finding) Alive and well Paternal grandmother Problem (finding) Paternal grandmother Problem (finding) hypertension Payers Payer name Insurance type Covered constitution party ID Authoriza tion(s) [employer] [facility] Medicaid CI [id number] [facility] Medical [id number] Social History Type Description Quantity Date Captured [...]
--- OUTSIDE RECORDS SUMMARY | 2025-05-13 09:44 | XMS_ITS | Clinical Summary ---
Author Organization [facility] Address [address] [place] [address] Care Team Providers Care Director Video Name Role Phone Antonette Mcgee MD Primary Care Provider [phone] Allergies Active Allergy Reactions Criticality Noted Date Comments Dexamethasone Hives 01/21/2024 Medications fluticasone-salm eterol (ADVAIR HFA) 115-21 MCG/ACT inhalerIndicatio ns:Severe persistent asthma with status asthmaticus (HCC) Inhale 2 puffs into the lungs 2 times daily 6 each 1 4 Active ibuprofen (IBU) 600 MG tablet Take 1 tablet by mouth every 6 hours as needed for Pain 120 tablet 4 Active Additional Information Patient not taking.Reported on 02/28/2024 meloxicam (MOBIC) 15 MG tablet Take 1 tablet by mouth daily 30 tablet 4 Active Additional Information Patient not taking.Reported on 02/28/2024 albuterol sulfate HFA (VENTOLIN HFA) 108 (90 Base) MCG/ACT inhalerIndicatio ns:Mild intermittent asthma without complication Inhale 2 puffs into the lungs 4 times daily as needed for Wheezing 18 g 1 4 Active Active Problems Problem Noted Date Diagnosed Date Anemia, 02/27/2017 Insufficient care 02/27/2017 High risk teen 02/27/2017 S/P section 02/26/2017 Threatened labor 02/25/2017 Failure to progress in labor 02/25/2017 Family History Medical History Relation Name Comments Asthma Brother Cancer Maternal Grandfather Arthritis Maternal Grandmother Depression Maternal Grandmother Diabetes Maternal Grandmother Heart Disease Maternal Grandmother High Blood Pressure Maternal Grandmother High Cholesterol Maternal Grandmother Arthritis Mother Asthma Mother Depression Mother Miscarriages / Stillbirths Mother Relation Name Status Comments Brother Maternal Grandfather Maternal Grandmother Mother Social History Tobacco Use Types Packs/Day Years Used Date Smoking Tobacco: Never Smokeless Tobacco: Never Tobacco Cessation:Counseling Given: Not Answered Alcohol Use Standard Drinks/Week Comments No 0 (1 standard drink = 0.6 oz pur e alcohol) Humiliation, Afraid, Rape, and Kick questionnair e Answer Date Recorded Within the last year, have y ou been afraid of your partner or ex-partner? No 09/15/2022 Within the last year, have y ou been humiliated or emotionally abused in other ways by your partner or ex-partner? No Within the last year, have y ou been kicked, hit, slapped, or otherwise physically hurt by your partner or ex-partner? No 09/15/2022 Within the last year, have y ou been raped or forced to have any kind of sexual activity by your partner or ex-partner? No 09/15/2022 AUDIT-C Answer Date Recorded Q1: How often do you have a drink containing alcohol? Never 02/01/2023 Q2: How many drinks containi ng alcohol do you have on a typical day when you are drinking? Patient does not drink Q3: How often do you have si x or more drinks on one occasion? Never 02/01/2023 Overall Financial Resource Strain (CARDIA) Answe r Date Recorded How hard is it for you to pa y for the very basics like food, housing, medical care, and heating? Not hard at all 01/02/2024 PHQ-2 Answer Date Recorded PHQ-9 Total Score 0 01/02/2024 Exercise Vital Sign Answer Date Recorde d On average, how many days pe r week do you engage in moderate to strenuous exercise (like a brisk walk)? 1 day 09/15/2022 On average, how many minutes do you engage in exercise at this level? 10 min 09/15/2022 Hunger Vital Sign Answer Date Recorded Within the past 12 months, y ou worried that your food would run out before you got the money to buy more. Never true 01/02/20 24 Within the past 12 months, t he food you bought just didn't last and you didn't have money to get more. Never true 01/02/2024 PRAPARE - Transportation Answer Date Re corded Lack of Transportation (Medical) Not on file 01/02/2024 In the past 12 months, has l ack of transportation kept you from meetings, work, or from getting things needed for daily living? No 01/02/2024 Housing Stability Vital Sign Answer Stu e Recorded Unable to Pay for Housing in the Last Year Not o n file 01/02/2024 Number of Places Lived in the Last Year Not on f ile 01/02/2024 In the last 12 months, was t here a time when you did not have a steady place to sleep or slept in a senior living (including now)? No 01/02/2024 Food Insecurity Answer Date Recorded Within the past 12 months, y ou worried that your food would run out before you got the money to buy more. 1 01/02/2024 Within the past 12 months, t he food you bought just didn't last and you didn't have money to get more. 1 01/02/2024 Interpersonal Safety Domain Source: IP Abuse Scr eening Answer Date Recorded Read-Only, Retired: Physical Abuse Denies 01/21/2024 Read-Only, Retired: Verbal Abuse Denies 01/21/2024 Emotional abuse Not on file 01/21/2024 Financial abuse Not on file 01/21/2024 Sexual abuse Not on file 01/21/2024 Comments No Sex and Gender Information Value Date Recorded Sex Assigned at Not on file Legal Sex Female 7:30 AM EDT Gender Identity Not on file Sexual Orientation Not on file Last Filed Vital Signs Vital Sign Reading Time Taken Comments Blood Pressure 112/68 02/28/2024 1:43 PM EDT Pulse 96 02/28/2024 1:43 PM EDT Temperature 36.9 C (98.5 F) 02/28/2024 1:43 PM EDT Respiratory Rate 18 01/21/2024 10:0 6 AM EST Oxygen Saturation 96% 02/28/2024 1:43 PM EDT Inhaled Oxygen Concentration - - Weight 110.4 kg (243 lb 6.4 oz) 02/28/2024 1:43 PM EDT Height 160 cm (5' 3 ) 01/21/2024 10:06 AM EST Body Mass Index 43.12 01/21/2024 10:06 AM EST Plan of Treatment Health Maintenance Due Date Last Done Comments Meningococcal B vaccine (1 of 2 - Standard) 2017 Chlamydia/GC screen 10/10/2017 10/10/2016 Hepatitis C screen 2019 Pap smear 2022 DTaP/Tdap/Td vaccine (7 - Td or Tdap) 10/21/2022 10/21/2012, 08/14/2005, 12/10/2002, Additional history exists COVID-19 Vaccine ( season) 2024 Depression Screen 01/02/2025 01/02/2024 Flu vaccine (Season Ended) 06/19/202509/10, 09/04/2017, 09/01/2015, Additional history exists Hepatitis B vaccine Completed 06/23/2003, 06/23/2003, 2001, Additional history exists Hib vaccine Completed 06/23/2003, 11/20, 04/01/2002, Additional history exists Measles,Mumps,Rubella (MMR) vaccine Discontinued 09/06/2006, 08/14/2005 Varicella vaccine Completed 09/06/2006, , 08/20/2002 Polio vaccine Completed 10/27/2006, 08/19, 08/20/2002, Additional history exists HPV vaccine Completed 08/13/2014, 11/19, 10/21/2012 Hepatitis A vaccine Completed 02/22/2015, 2 HIV screen Completed 10/10/2016 Meningococcal (ACWY) vaccine Completed 09/04/2017, 10/21/2012 Pneumococcal 0-49 years Vaccine Aged Out No longer eligible based on patient's age to complete this topic Procedures Procedure Name Priority Date/Time Associated Diagnosis Comments CHLAMYDIA DNA PROBE Routine 10/10/2016 HIV SCREEN Routine 10/10/2016 from Last 3 Months or Most Recently Relevant to Health Maintenance Results * Chlamydia DNA Probe (10/10/2016) C. Trachomatis Amplified negative Historical Provider MICROBIOLOGY - GENERAL OR DERABLES Final Result * HIV Screen (10/10/2016) HIV-1/HIV-2 Ab nonreactive BLOOD SPECIMEN / Unknown Historical Provider IMMUNOLOGY ORDERABLES Fin al Result from Last 3 Months or Most Recently Relevant to Health Maintenance Insurance MEDICAID MEDICAID [facility] MEDICAID Advance Directives Documents on File Type Date Recorded Patient Senior Mortgage Underwriter Expl anation ACP-Advance Directive 05/03/2016 4:02 PM * Full Code (Latest Code Status on File) Date Activated Date Inactivated Comments 02/25/2017 11:58 AM 02/27/2017 4:13 PM * Full Code Date Activated Date Inactivated Comments 02/25/2017 5:20 AM 02/25/2017 11:58 AM Care Teams Director Video Relationship Specialty Start Date End Date Antonette Mcgee MD [address] [facility] [address] [place] [address] PCP - General Internal Medicine 09/15/22
--- OUTSIDE RECORDS SUMMARY | 2025-05-13 09:44 | XMS_ITS | Clinical Summary ---
Author Organization Healthcare Address [address] [place] [address] Care Team Providers Care Display Maker Name Role Phone MedardoMichell Kenyatta JOSEPH Primary Care Provider [phone] Allergies Active Allergy Reactions Criticality Noted Date Comments Dexamethasone Hives Medium 01/21/2024 Prednisolone Hives High 09/22/2024 Medications albuterol 108 (90 Base) MCG/ACT inhaler Inhale 2 puffs every 4 (four) hours if needed. 02/05/2024 Active diclofenac (Voltaren) 1 % topical gel .COMPLEX 08/19/2024 Active ibuprofen 600 MG tablet Take 1 tablet (600 mg) by mouth every 6 (six) hours if needed. 01/21/2024 Active Active Problems No known active problems Social History Tobacco Use Types Packs/Day Years Used Date Smoking Tobacco: Never Smokeless Tobacco: Never Tobacco Cessation:Counseling Given: Not Answered Alcohol Use Standard Drinks/Week Comments Never 0 (1 standard drink = 0.6 oz pur e alcohol) Comments Unknown Sex and Gender Information Value Date Recorded Sex Assigned at Not on file Legal Sex Female 6:20 PM EST Gender Identity Not on file Sexual Orientation Not on file Last Filed Vital Signs Vital Sign Reading Time Taken Comments Blood Pressure 125/81 11/13/2024 1:41 PM EST Pulse 81 11/13/2024 1:41 PM EST Temperature 36.9 C (98.5 F) 11/13/2024 1:41 PM EST Respiratory Rate - - Oxygen Saturation 93% 11/13/2024 1:41 PM EST Inhaled Oxygen Concentration - - Weight 90.7 kg (200 lb) 11/13/2024 1:41 PM EST Height 162.6 cm (5' 4 ) 11/13/2024 1:41 PM EST Body Mass Index 34.33 11/13/2024 1:41 PM EST Plan of Treatment Health Maintenance Due Date Last Done Comments [facility]-Chlamydia and Gonorrhea Screening 2001 [facility]-Depression Screening 2001 [facility]-Hepatitis C Screening 2001 [facility]-/Child/Adol SDOH Screenings 2001 [facility]-Varicella Vaccines (1 of 2 - 13+ 2-dose series) 2014 HPV Vaccines (1 - 3-dose series) 2016 [facility]- SDOH Screenings 2019 [facility]-Adult SDOH Screenings 2019 [facility]-DTaP,Tdap,and Td Vaccine s (4 - Tdap) 2020 08/14/2005, 06/11/2002, 04/01/2002 [facility]-Hepatitis B Vaccines (1 of 3 - 19+ 3-dose series) 2020 [facility]-Pap Smear 2022 YAJ-OURPC-19 Vaccine (1 - 2023- season) 2024 [facility]-Influenza Vaccine (Seas[place] n Ended) 2025 [facility]-Zoster Vaccines (1 of 2) 2051 [facility]-HIB Vaccines Aged Out 04/01/2002 No longer e ligible based on patient's age to complete this topic [facility]-Pneumococcal Vaccine: Pediatrics (0 to 5 Years) and At-Risk Patients (6 to 49 Years) Aged Out 06/11/2002, 04/01/2002 No longer eligible based on patient's age to complete this topic [facility]-IPV Vaccines Completed 08/14/2005, 06/11/2002, 04/01/2002 [facility]-HIV Screening Completed 10/10/2016 [facility]-Obesity Intervention Completed 11/13/2024 [facility]-Hepatitis A Vaccines Aged Out No longer eligible based on patient's age to complete this topic [facility]-Rotavirus Vaccines Aged Out No lo nger eligible based on patient's age to complete this topic Insurance [employer] [facility] MEDICAID Care Teams Display Maker Relationship Specialty Start Date End Date Michell Batres APRN [address] [place] [address] PCP - General 09/29/24
--- OUTSIDE RECORDS SUMMARY | 2025-05-13 09:44 | XMS_ITS | Data Portability ---
Author Organization [place] - Guillaume [place], [address] [facility] Nils (130) Address [address] [place] [address] Assessment No assessment recorded. Plan of Treatment Reminders Order Date Submit Date Provider Last Modified By Organization Details Last Modified Time Details Appointments None recorded. Lab BNP (B-type natriureti c peptide), serum or plasma 2019 020 LITA [facility], [address], [place], [address], 0 09:30:21 vitamin D, 25-hydroxy , total, serum 2019 020 LITA [facility], [address], [place], [address], 0 09:30:21 HIV 1+2 AB + HIV 1 p24 Ag, qualitativ e immunoassa y, serum 2019 020 DBA_PATCH_ [id number] [facility], [address], [place], [address], 2 04:22:27 hepatitis B surface Ab, qualitativ e, serum 2019 020 DBA_PATCH_ [id number] [facility], [address], [place], [address], 2 04:22:28 HBsAg (hepatitis B surface Ag), EIA, serum 2019 020 DBA_PATCH_ [id number] [facility], [address], [place], [address], 2 04:21:39 hepatitis C Ab, signal-to- cutoff, serum or plasma 2019 020 DBA_PATCH_ [id number] [facility], [address], [place], [address], 2 04:04:12 treponema pallidum screen, serum, reflex confirmati on 2019 020 DBA_PATCH_ [id number] [facility], [address], [place], [address], 2 04:18:24 CT + NG + TV, DNA, urine/swab 2019 020 LITA [facility], [address], [place], [address], 0 06:35:26 Referral private branch exchange installer referral 2019 020 DBA_PATCH_ [id number] Bernie Ojeda DPM, [address], [place], [address], 2 04:20:42 private branch exchange installer referral 2019 020 DBA_PATCH_ [id number] Bernie Lynette DPM, [address], [address], [place], [address], 2 04:20:22 Procedures None recorded. Surgeries None recorded. Imaging None recorded. Medication Orders Vitamin D3 50 mcg (2,000 unit) capsule 2019 020 INTERFACE [facility] [id number], [address] [place], [address], 0 16:47:56 albuterol sulfate HFA 90 mcg/actuat ion aerosol inhaler 2019 020 [facility] [id number], [address] [place], [address], 0 16:20:12 Vitamin D2 1,250 mcg (50,000 unit) capsule 2019 020 [facility] [id number], [address] [place], [address], 0 16:20:05 Patient TargetsNo targets recorded. Patient Instructions Encounter Date Encounter Id Patient Instructions Last Modified By Organization Details Last Modified Time 05/17/2020 [id number] Patients PMH, FH , SH, surgical history were reviewed. Patients medication, labs, radiology were reviewed and chart updated accordingly. Pt educated related to disease process, meds and plan of care Pt verbalized understanding of education provided Pt agreed to plan of care Pt denied questions Pt instructed: call clinic if you have any concerns about your health Pt agreed to follow instructions Take meds as prescribed Please keep us updated if you notice any medication side effects or changes in your health Call clinic or go to the ER in case of emergency, or if you are unsure if you are having an emergency Patient educated to follow up at our clinic in 7 WEEKS Not available 05/24/2020 09:02:49 Follow up I started 50,000 units PO QWEEK x6 weeks Follow up in 7 weeks to recheck Vit D and to start Vit D3 once daily and blood borne pathogens Swabs today Not available 05/24/2020 09:02:56 07/05/2020 [id number] Patients PMH, FH , SH, surgical history were reviewed. Patients medication, labs, radiology were reviewed and chart updated accordingly. Pt educated related to disease process, meds and plan of care Pt verbalized understanding of education provided Pt agreed to plan of care Pt denied questions Pt instructed: call clinic if you have any concerns about your health Pt agreed to follow instructions Take meds as prescribed Please keep us updated if you notice any medication side effects or changes in your health Call clinic or go to the ER in case of emergency, or if you are unsure if you are having an emergency Patient educated to follow up at our clinic in ONE YEAR for annual physical Not available 07/06/2020 14:22:38 Reason for Referral 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 [place] [facility] [address] [place], [address], 05/21/2020 06:35:26 05/17/2005/21/2020 bacte rial vagin osis panel , vagin al bvab 2 Low - 0 score Not Available [facility] ([facility] [place] [place] [facility] [address] [place], [address], 05/21/2020 06:35:26 05/17/2005/21/2020 bacte rial vagin osis panel , vagin al megasphaera 1 Low - 0 score Calcu late total score by tom dominguez the 3 indiv idual bacte rial vagin osis (BV) marke r score s toget her. Total score is inter prete d as follo ws: Total score 0-1: Indic ates the absen ce of BV. Total score 2: Indet ermin ate for BV. Addit ional clini kimberly data shoul d be evalu ated to estab dave a diagn osis. Total score 3-6: Indic ates the prese nce of BV. This test was devel oped and its perfo rmanc e katelyn cteri stics deter mined by [facility]. It has not been clear ed or appro carissa by the Food and Drug Admin istra tion. The FDA has deter mined that such clear ance or appro darion is not neces ruben. Not Available [facility] ([facility] [place] [place] [facility] [address] [place], [address], 05/21/2020 06:35:26 05/17/2005/2105/21/2020 bacte rial vagin osis panel , vagin al olya albicans, VANESSA Negati ve negati ve Not Available [facility] ([facility] [place] [place] [facility] [address] [place], [address], 05/21/2020 06:35:26 05/17/20 20 05/21/2020 bacte rial vagin osis panel , vagin al olya glabrata, VANESSA Negati ve negati ve Not Available [facility] ([facility] [place] [place] [facility] [address] [place], [address], 05/21/2020 06:35:26 05/17/2005/21/2020 CT + NG + TV, DNA, urine /swab chlamydia by VANESSA Negati ve negati ve Not Available [facility] ([facility] [place] [place] [facility] [address] [place], [address], 05/22/2020 09:35:28 05/17/2005/21/2020 CT + NG + TV, DNA, urine /swab gonococcus by VANESSA Negati ve negati ve Not Available [facility] ([facility] [place] [place] [facility] [address] [place], [address], 05/22/2020 09:35:28 05/17/2005/22/2020 CT + NG + TV, DNA, urine /swab trich vag by VANESSA Negati ve negati ve Not Available [facility] ([facility] [place] [place] [facility] [address] [place], [address], 05/22/2020 09:35:28 07/05/20 20 07/06/2020 vitam in D, 25-hy droxy , total , serum vitamin D, 25-hydroxy 16.1 NG/mL 30.0-1 00.0 below low normal Vitam in D defic iency has been defin ed by the Insti tute of Medic ine and an Endoc rine Socie ty pract ice guide line as a level of serum 25-OH vitam in D less than 20 ng/mL (1,2) . The Endoc rine Socie ty went on to [facility] defin e vitam in D insuf ficie ncy as a level betwe en 21 and 29 ng/mL (2). 1. IOM (Inst itute of Medic ine). 2010. Dieta ry refer ence noe es for calci um and D. Ninoska guy [place]: [facility] [place] [facility] . 2. Holic k MF, Binkl ey [place], Bisch off-F errar i HARRISON, et al. Evalu ation , treat ment, and preve ntion of vitam in D defic iency : an Endoc rine Socie ty clini kimberly pract ice guide line. JCEM. 2010; 96(7) :1911 -30. Not Available [facility] ([facility] [place] [place] [facility] [address] [facility], [place], [address], 07/06/2020 09:30:21 08 20 07/06/2020 BNP (B-ty pe natri ureti c pepti de), serum or plasm a B-type natriuretic peptide 25.2 pg/mL 0.0-10 0.0 Not Available [facility] ([facility] [place] [place] [facility] [address] [facility], [place], [address], 07/06/2020 09:30:21 Result Notes None recorded. Problems Name Problem SNOMED Code Status Onset Date Resolution Date Notes Provider Name and Address Organization Details Recorded Time Asthma 298525841 Completed 201905/17/2020 LATONIA WHITTEN NP [address] [place], [address], [facility] 0 14:55:42 Attentio n deficit hyperact ivity disorder 672701437 Active 2019 inattenti ve type LATONIA WHITTEN NP [address] [place], [address], [facility] 0 14:42:05 Major depressi ve disorder 189404476 Active 2019 single episode severe without psychosis LATONIA WHITTEN NP [address] [place], [address], [facility] 0 14:42:19 Mixed receptiv e-expres sive language disorder 38905428 Active 2019 LATONIA WHITTEN NP [address] [facility], [address], [place] - [facility] 0 14:42:30 Nocturna l enuresis 9390644 Active 2019 LATONIA WHITTEN NP [address] [facility] [place] [place], [address], [place] - [facility] 0 14:42:38 Foot pain 80250495 Active 2019 LATONIA WHITTEN NP [address] [facility] [place], [address], [place] - [facility] 0 14:42:44 Intermit tent asthma 827370995 Active 2019 LATONIA WHITTEN NP [address] [facility] [place], [address], [place] - [facility] 0 14:42:51 Mild intermit tent asthma 309104302 Active 2019 LATONIA WHITTEN NP [address] [facility] [place], [address], [place] - [facility] 0 14:44:20 Teenage pregnanc y 246218612 Completed 201905/17/2020 LATONIA WHITTEN NP [address] [place], [address], [place] - [facility] 0 14:44:33 Chlamydi al infectio n 715652907 Completed 201905/17/2020 8 LATONIA WHITTEN NP [address] [facility] [place], [address], [place] [facility] 0 14:45:06 Vitamin D deficien cy 72335037 Active 2019 LATONIA WHITTEN NP [address] [facility] [place], [address], [place] [facility] 0 14:49:39 Venereal disease screenin g Active 2019 LATONIA WHITTEN NP [address] [place], [address], [facility] 0 15:05:49 Viral screenin g Active 2019 LATONIA WHITTEN, TAXONOMIST [address] [place], [address], [facility] 0 15:06:23 Long-ter m drug therapy Active 2019 LATONIA WHTITEN, TAXONOMIST [address] [place], [address], [facility] 0 16:34:06 Edema of lower extremit y 870126359 Active 2019 LATONIA WHITTEN, TAXONOMIST [address] [place], [address], [facility] 0 16:37:22 Problem Notes None recorded. Procedures Surgical History Date Name Laterality Status Provider Name and Address Organization Details Recorded Time [facility] [address] [place], [address], [facility] 05/17/2020 14:45:[address] [facility] [address] [place], [address], [facility] 05/17/2020 14:45:44 Unlisted px foot/toes [facility] [address] [place], [address], [facility] 07/05/2020 16:26:38 Imaging Results None recorded. Procedure Notes None recorded. Medical Equipment Implant [employer] Issuing Agency Serial Number Lot Number Status Provider Name and Address Organization Details Recorded Time control FDA Y [facility] [address] [place], [address], [facility] 05/17/2020 14:52:49 Allergies No known drug allergies Medications Name Sig Start Date Stop Date Status Note LastModified by Organization Details LastModified Time topiramate 25 mg tablet Take 1 tablet every day by oral route for 30 days. active Not Available Not Available No t Available metronidazo le 500 mg tablet 05/17 completed Not Available Not Available Not Available Condoms-Pre m Lubricated 05/17 completed Not Available Not Available Not Available hydroxyzine HCl 25 mg tablet Take 1 tablet every day by oral route for 30 days. active 07/05 Not Available Not Available No t Available amoxicillin 400 mg/5 mL oral suspension 05/17 completed Not Available Not Available Not Available ergocalcife rol (vitamin D2) 1,250 mcg (50,000 unit) capsule Take 1 capsule every week by oral route for 42 days. active 07/05 Not Available Not Available No t Available albuterol sulfate HFA 90 mcg/actuati on aerosol inhaler Inhale 2 puffs every 4 hours by inhalatio n route as needed. active 07/05 Not Available Not Available No t Available sertraline 50 mg tablet Take 1 tablet every day by oral route for 30 days. active 07/05 Not Available Not Available No t Available cholecalcif josiah (vitamin D3) 1,250 mcg (50,000 unit) capsule Take 1 capsule every week by oral route for 56 days. 2019 active Not Available Not Available Not Avai lable Vitamin D3 50 mcg (2,000 unit) capsule Take 1 capsule every day by oral route. 2019 active Not Available Not Available Not Avai lable Aerochamber Plus Flow-Vu,Lar ge Mask 07/05 completed Not Available Not Available Not Available Vitals Date Recorded Body height Respiratory rate Body mass index (BMI) Body mass index (BMI) [Percentile] Per age and sex Body weight Oxygen saturation Oxygen saturation in Arterial blood by Pulse oximetry Systolic blood pressure Diastolic blood pressure Provider Name and Address Organization Details Last Updated DateTime 0 160.02 cm 16 /min 34.3 kg/m2 97 % 67727.7 6 g 99 % 99 % 107 mm[Hg] 65 mm[Hg] [facility]ERIE[facility] T [address] [place], [address] [place] - [facility] 0 14:51:58 Date Recorded Body height Body mass index (BMI) [Percentile] Per age and sex Body mass index (BMI) Body weight Respiratory rate Body temperature Oxygen saturation Oxygen saturation in Arterial blood by Pulse oximetry Heart rate Systolic blood pressure Diastolic blood pressure Provider Name and Address Organization Details Last Updated DateTime 0 160.02 cm 97 % 34.3 kg/m2 69556.2 g 16 /min 97.4 [degF] 96 % 96 % 88 /min 115 mm[Hg] 69 mm[Hg] JUDITHAR T [address] [place], [address], [facility] 0 16:24:32 Social History Question Answer Notes LastModified by Organizat ion Details LastModified Time Tobacco Smoking Status Never Smoker [facility] [address] [place], [address], [facility] 05/17/2020 14:40:23 Do You Have An Advance Directive? No Information not available 05/17/2020 What Is Your Level Of Caffeine Consumption? Occasional Information not available 05/17/2020 How Much Tobacco Do You Chew? None Information not available 05/17/2020 What Type Of Diet Are You Following? REGULAR Information not available 05/17/2020 Which Illicit Or Recreational Drugs Have You Used? Denies No History Of Cocaine Use Information not available 05/17/2020 Education 12 Information no t available 05/17/2020 Swimming/diving Yes Informati on not available 05/17/2020 Are There Any Guns Present In Your Home? No Information not available 05/17/2020 Hard Of Hearing Or Deaf In One Or Both Ears? No Information not available 05/17/2020 Single Or Multi-level Home/work? Single Level Home Information not available 05/17/2020 Legally Blind In One Or Both Eyes? No Information not available 05/17/2020 Live Alone Or With Others? Alone Information not available 05/17/2020 Marital Status Single 1 Child Informatio n not available 05/17/2020 What Was The Date Of Your Most Recent Tobacco Screening? 05/17/2020 Information not available 05/17/2020 How Many Children Do You Have? 1 Information not available 05/17/2020 Do You Use Protection During Sex? Usually Information not available 05/17/2020 Seat Belts Used Routinely Yes Information not available 05/17/2020 Are You Sexually Active? No Information not available 05/17/2020 Smoke Alarm In Home Yes Information not available 05/17/2020 At What Age Did You Start Smoking Tobacco? 0 Information not available 05/17/2020 Are You Passively Exposed To Smoke? No Information not available 05/17/2020 How Much Tobacco Do You Smoke? No Information not available 05/17/2020 General Stress Level Medium Information not available 05/17/2020 Do You Use Sunscreen Routinely? Yes Information not available 05/17/2020 How Many Years Have You Smoked Tobacco? 0 Information not available 05/17/2020 Sex: Unknown Functional Status Question Answer Note LastModified by Organizat ion Details LastModified Time What is your level of alcohol consumption? None Information not available 05/17/2020 Do you or have you ever used smokeless tobacco? Never used smokeless tobacco Information not available 05/17/2020 Are you currently employed? Yes Information not available 05/17/2020 Are you able to care for yourself? Yes Information not available 05/17/2020 What is your occupation? [employer] Information not available 05/17/2020 Do you or have you ever used e-cigarettes or vape? Never used electronic cigarettes Information not available 05/17/2020 What is your exercise level? Moderate Information not available 05/17/2020 Mental Status None recorded. Family History Relationship Description Onset Age of this Age Resolved Age Notes LastModified by Organization Details LastModified Time Father Essential hypertension Not available 14:40:09 Mother Essential hypertension Not available 14:40:09 Mother Hyperlipidem ia Not available 2019 14:44:04 Medical History Condition Response Coronary Artery Disease N Other N Gout N Kidney Stones N Blood Diseases N Hyperthyroidism N Breast Cancer N Blood Transfusion N COPD N Depression Y Lung Disease N Hypothyroidism N Defects or Inherited Disease N Developmental or Behavioral Disorders N Breast Problem N Bipolar N Difficulty Swallowing N Anesthesia Complications N Meniere's disease N Anxiety Disorder Y Muscle, Joint, or Bone Problems N Obesity N Vision or Eye Problems N Arthritis N Polyps N Infertility N Mental Disorder N Cancer N Varicosities N Stroke N Endometriosis N Bladder or Kidney Problems N High Cholesterol N Liver Disease N Fibromyalgia N Headaches N Kidney Disease N Allergies/Hayfever N Heart Problems N Ear or Hearing Problems N Hospitalizations N Thyroid Problems N GI Problems N ADD/ADHD Y Skin Problems N Eating Disorder N PTSD N Anemia N MRSA exposure N Constipation N Mental Illness N Ovarian Cancer N Diabetes N Bedwetting N Seizures/Epilepsy N Tuberculosis N AIDS/HIV N Congestive Heart Failure (CHF) N Eczema N Diverticulitis N Abuse/Domestic Violence N Asthma Y Reflux/GERD N Hepatitis N Heart Disease N Pulmonary Embolism N Pre-Eclampsia N Hypertension N Chronic Ear Infections N Osteoporosis N Chicken Pox N Autism Spectrum Disorder (ASD) N Thrombophilias N Gynecological HistoryNo gynecological history recorded. Obstetrics History GPAL:G 0 P 0 0 0 0 Past Encounters Encounter ID Performer Location Encounter Start Date Encounter Closed Date Diagnosis/Indication Diagnosis SNOMED-CT Code Diagnosis ICD10 Code Diagnosis Note [id number] LATONIA WHITTEN NP [facility] [address] [place] [address] 05/17/2020 14:13:55 05/24/2020 10:04:57 Vitamin D deficiency 47083128 E55.9 Status: Uncontroll ed Start meds Foot pain 76177444 M79.6 73 Status: Uncontroll ed Podiatry referral ordered Intermittent asthma 4276 [address] J45.20 Status: Stable Hasn't used rescue inhaler in months Venereal d isease screening 880630291 Z11.3 Status: Unclear Check swabs Viral screening 74000647 4 Z11.59 Status: Unclear Check labs [id number] LATONIA WHITTEN NP [facility] [phone] [place] [address] 07/05/2020 16:17:37 07/08/2020 15:42:28 Vitamin D deficiency 36948735 E55.9 Status: Unclear I started Vitmain D2 50,000 units PO QWEEK x6 weeks 7 weeks agoCheck Vit D levelStart Vit D3 2,000 units PO QDAY Long-term drug therapy 249486957 Z79.899 Status: Ongoing Check labs Edema of eliza hernandez extremity 063831658 R60.0 Status: Ongoing I reviewed her labs, kidney/daniel er function looks good, thyroid function is normal, pt hasn't had any recent IV fluids, she denied injuries, denied hx of known heart disease. 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 Foot pain 67298737 M79.6 73 Status: Uncontroll ed Podiatry referral ordered Health Concerns Section Related Observation LastModified by Organization Detai ls LastModified Time None Recorded Concern Status LastModified by Organization Details LastModified Time None Recorded Advance Directives Directive N: Payers Insurance Date Sequence Insurance Name Policy Number Policy Hidalgo Covered Member ID Hidalgo Member ID Guarantor Name 09/05/2020 1 PARAMOUNT - DOS PRIOR TO 2022 - ADVANTAGE (MEDICAID REPLACEMENT - HMO) [id number] Vivian L Padroni [id number] Vivian L Zhanna 08/09/2020 1 *SELF PAY* De siree Eliza Zhanna Notes Date Note Type Note Provider Name and Address Organization Details Recorded Time 05/17/2020 text/html CC: both feet swell and have a lot of pain Onset: for the past 2 yrs Location: both feet Duration: all day Character: swelling w/ pain that makes my light headed and feel sick Character: pain and swelling What makes it worse: standing on them What makes it better: nothing Timing/Pattern: through the day Severity: mild Pt is in office today for bilateral foot pain. Pt states will come back to est care. 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 Reported BLE edema has been ongoing for years and impacting quality of life. Reports bilateral surgery during young childhood (over a decade ago) and reports has been having pain and swelling since then. LATONIA WHITTEN NP [address] [place], [address], [facility] 07/06/2020 14:23:10 OBGyn Episode No OBEpisode recorded.
[2025-05-13 09:58] LABS: Basophils % 0.3 % (0.1-2.0); Eosinophils # 0.1 Kmm3 (0.0-0.4); Eosinophils % 1.3 % (0.1-12.0); Hemoglobin 11.6 g/dL (12.2-16.2); Immature Granulocytes # 0.12 10^3uL; Immature Granulocytes % 1.1 %; Lymphocytes % 18.2 % (10-50); Mean Corpuscular HGB Conc 33.1 g/dL (31.8-35.4); Mean Corpuscular Hemoglobin 29.2 pg (27.0-31.2); Mean Corpuscular Volume 88.2 fl (81-99); Mean Platelet Volume 11.1 fl (7.4-10.4); Monocytes # 0.5 K/mm3 (0.1-1.0); Monocytes % 4.5 % (1.7-9.3); Neutrophils # 8.1 K/mm3 (1.8-7.8); Neutrophils % 74.6 % (37.0-80.0); Nucleated Red Blood Cells # 0 10^3/uL; Nucleated Red Blood Cells % 0 %; Platelet Count 243 K/mm3 (142-424); Red Blood Count 3.97 M/mm3 (4.20-5.40); Red Cell Distribution Width 16.9 % (11.5-17.5); Red Cell Distribution Width-SD 54.1 fL; White Blood Count 10.9 K/mm3 (4.8-10.8)
[2025-05-13] MEDS: RHO(D) IMMUNE GLOBULIN 1,500 UNIT (300MCG) SYRINGE 300 MCG IM (11:02)
[2025-05-13 11:12] VITALS: BP 124/73; PULSE 103; RESP 18; O2SAT 100
[2025-05-13 11:29] LABS: Glucose 1 Hour 130 mg/dL (74-100)
[2025-05-13 19:39] LABS: RPR W/RFX Titers Nonreactive (Nonreactive)
== END 2025-05-13 11:12 | disposition home or self-care (01) ==
LOC: LAB 09:42 → INF 10:00
PROVIDERS: PCP Nurse Practitioner Family; Visit Provider Obstetrics & Gynecology
DX: Z34.82 Encounter for supervision of other normal pregnancy, second trimester (principal); O99.210 Obesity complicating pregnancy, unspecified trimester
CPT/HCPCS: 36415; 82947; 85025; 86592; 96372; J2790

== ENCOUNTER 2025-05-28 10:44 | Outpatient (CLI) | payer OTHER, SELFPAY ==
--- NOTE | 2025-05-28 10:45 | US_ITS ---
PROCEDURE: US OB FOLLOW UP CLINICAL INDICATION: Needs growth scan for excessive growth COMPARISON: US US OB TRANSVAGINAL from 11/28/2024 US US OB TRANSVAGINAL from 01/27/2025 US US OB /MATERNAL DETAIL from 03/06/2025 US US OB FOLLOW UP from 03/27/2025 FINDINGS: Transabdominal sonographic images of the pelvis were obtained. The following parameters are obtained: From her established due date she is 30weeks 5days Viable fetus in the cephalic presentation with a posterior placenta grade 1. The cervix measures 3.13 cm heart rate: 156bpm bpm. Average ultrasound age 31 weeks 1 days Estimated weight 1709 grams, 3 lb 12 oz BPD: 30weeks 0 days, 17 percentile HC: 32weeks 2days, 55 percentile AC: 31weeks 2days, 63 percentile FL: 31weeks 0 days, 42 percentile HC/AC: 1.07 FL/BPD: 0.8 FL/AC: 0.22 Growth percentile: 52 Amniotic fluid index: 10.68cm, MVP 3.98 cm No obvious anomalies evident. profile seen, stomach, bladder, kidneys, three-vessel cord, four chamber heart appear normal. IMPRESSION: 1. Viable fetus in the cephalic presentation with posterior placenta grade 1. 2. The fluid is within normal limits with an amniotic fluid index 10.68 cm, MVP 3.98 cm. 3. There has been good interval growth with the fetus currently 52nd percentile. 4. Limited anatomical scan appears normal. Dictated by: Chandana Zheng MD 05/28/2025 13:57 Chandana Zheng MD in OV 05/28/2025 13:57
--- OUTSIDE RECORDS SUMMARY | 2025-05-28 10:48 | XMS_ITS | Clinical Summary ---
Author Organization [facility] Address [address] [place] [address] Care Team Providers Care Wood Flooring Specialist Name Role Phone Antonette Mcgee MD Primary Care Provider [phone] Allergies Active Allergy Reactions Criticality Noted Date [...] place to sleep or slept in a custodial (including now)? No 01/02/2024 Food Insecurity Answer [...] 2024 Depression Screen 01/02/2025 01/02/2024 Flu vaccine (#1) 06/19/2025 09/10/2018, , 09/01/2015, Additional history exists Hepatitis B vaccine [...] Relevant to Health Maintenance Insurance MEDICAID MEDICAID [facility] MEDICAID Advance Directives Documents on File Type Date Recorded Patient Funeral Service Practitioner/Embalmer Expl anation ACP-Advance Directive 05/03/2016 4:02 PM * Full Code (Latest Code Status on File) Date Activated Date Inactivated Comments 02/25/2017 11:58 AM 02/27/2017 4:13 PM * Full Code Date Activated Date Inactivated Comments 02/25/2017 5:20 AM 02/25/2017 11:58 AM Care Teams Wood Flooring Specialist Relationship Specialty Start Date End Date Antonette Mcgee MD [address] [facility] [address] [place] [address] PCP - General Internal Medicine 09/15/22
--- OUTSIDE RECORDS SUMMARY | 2025-05-28 10:50 | XMS_ITS | Clinical Summary ---
Author Organization Healthcare Address [address] [place] [address] Care Team Providers Care Talent Partner Name Role Phone MedardoMichell Kenyatta JOSEPH Primary Care Provider [phone] Allergies Active Allergy Reactions Criticality Noted Date [...] 19+ 3-dose series) 2020 [facility]Y-Pap Smear 2022 [id number] Vaccine (1 - season) 2024 UKY-Influenza Vaccine (#1) 2025 UKY-Zoster Vaccines (1 of 2) 2051 [...] age to complete this topic Insurance AETNA [facility] MEDICAID Care Teams Talent Partner Relationship Specialty Start Date End Date Michell Batres APRN [address] [place] [address] PCP - General 09/29/24
--- OUTSIDE RECORDS SUMMARY | 2025-05-28 10:50 | XMS_ITS | Data Portability ---
Author Organization [place] - Guillaume Meadow, [address] [facility] Nils (130) Address [address] [place] [address] Assessment No assessment recorded. Plan of Treatment Reminders Order Date Submit Date Provider Last Modified By Organization Details Last Modified Time Details Appointments None recorded. Lab BNP (B-type natriureti c peptide), serum or plasma 2019 020 [facility]ITA [facility], [address], [place], [address], 0 09:30:21 vitamin D, 25-hydroxy , total, serum 2019 020 [facility], [address], [place], [address], 0 09:30:21 HIV 1+2 AB + HIV 1 p24 Ag, qualitativ e immunoassa y, serum 2019 020 [facility]_ [id number] [facility], [address], [place], [address], 2 04:22:27 hepatitis B surface Ab, qualitativ e, serum 2019 020 DBA_PATCH_ [id number] [facility], [address], [place], [address], 2 04:22:28 HBsAg (hepatitis B surface Ag), EIA, serum 2019 020 DBA_P[facility]_ [id number] [facility], [address], [place], [address], 2 04:21:39 hepatitis C Ab, signal-to- cutoff, serum or plasma 2019 020 DBA_PATCH_ [id number] [facility], [address], [place], [address], 2 04:04:12 treponema pallidum screen, serum, reflex confirmati on 2019 020 DBA_PATCH_ [id number] [facility], [address], [place], [address], 2 04:18:24 CT + NG + TV, DNA, urine/swab 2019 020 [facility], [address], [place], [address], 0 06:35:26 Referral casting coordinator referral 2019 020 DBA_PATCH_ [id number] Bernie Ojeda DPM, [address], [place], [address], 2 04:20:42 casting coordinator referral 2019 020 DBA_PATCH_ [id number] Bernie Lynette DPM, [address], [address], [place], [address], 2 04:20:22 Procedures None recorded. Surgeries None recorded. Imaging None recorded. Medication Orders Vitamin D3 50 mcg (2,000 unit) capsule 2019 020 INTERFACE [facility] [id number], [address] [place], [address], 0 16:47:56 albuterol sulfate HFA 90 mcg/actuat ion aerosol inhaler 2019 020 [facility] [id number], [address] [place], [address], 0 16:20:12 Vitamin D2 1,250 mcg (50,000 unit) capsule 2019 020 [facility] [id number], [address] [place], [address], 0 16:20:05 Patient TargetsNo targets recorded. Patient Instructions Encounter Date Encounter Id Patient Instructions Last Modified By Organization Details Last Modified Time 05/17/2020 [id number] Patients PMH, FH , SH, surgical history [...] Swabs today Not available 05/24/2020 09:02:56 07/05/2020 [id number] Patients PMH, FH , SH, surgical history [...] Not available 07/06/2020 14:22:38 Reason for Referral Claims Service Representative Referral for Foot pain Referring Physician: Latonia Whitten, Family Medicine, Encounter Date: 05/17/2020 Claims Service Representative Referral for Foot pain Referring Physician: Latonia Whitten [facility] Medicine, Encounter Date: 07/05/2020 Results Created Date Observation Date Name Description Value Unit Range Abnormal Flag Note LastModifiedBy Organization Detail LastModifiedTime 05/17/2005/21/2020 bacte rial vagin osis panel , vagin al atopobium vaginae Low - 0 score Not Available [facility] ([facility]) [address] [place], [address], 05/21/2020 06:35:26 05/17/2005/21/2020 bacte rial vagin osis panel , vagin al bvab 2 Low - 0 score Not Available [facility] ([facility]) [address] [place], [address], 05/21/2020 06:35:26 05/17/2005/21/2020 bacte rial vagin osis [...] is not neces ruben. Not Available [facility] ([facility]) [address] [place], [address], 05/21/2020 06:35:26 05/17/2005/2105/21/2020 bacte rial vagin osis panel , vagin al olya albicans, VANESSA Negati ve negati ve Not Available [facility] ([facility]) [address] [place], [address], 05/21/2020 06:35:26 05/17/20 20 05/21/2020 bacte rial vagin osis panel , vagin al olya glabrata, VANESSA Negati ve negati ve Not Available [facility] ([facility]) [address] [place], [address], 05/21/2020 06:35:26 05/17/2005/21/2020 CT + NG + TV, DNA, urine /swab chlamydia by VANESSA Negati ve negati ve Not Available [facility] ([facility]) [address] [place], [address], 05/22/2020 09:35:28 05/17/2005/21/2020 CT + NG + TV, DNA, urine /swab gonococcus by VANESSA Negati ve negati ve Not Available [facility] ([facility]) [address] [place], [address], 05/22/2020 09:35:28 05/17/2005/22/2020 CT + NG + TV, DNA, urine /swab trich vag by VANESSA Negati ve negati ve Not Available [facility] ([facility]) [address] [place], [address], 05/22/2020 09:35:28 07/05/20 20 07/06/2020 vitam in [...] Endoc rine Socie ty went on to [facility] defin e vitam in D insuf ficie ncy as a level betwe en 21 and 29 ng/mL (2). 1. IOM (Inst itute of Medic ine). 2010. Dieta ry refer ence noe es for calci um and D. Ninoska guy [place]: [facility], 1928–1983 [facility] Press . 2. Holic k MF, Binkl ey [place], Bisch off-F errar i HARRISON, et al. Evalu ation , treat ment, and preve ntion of vitam in D defic iency : an Endoc rine Socie ty clini kimberly pract ice guide line. JCEM. 2010; 96(7) :1911 -30. Not Available [facility] ([facility]) [address] [facility], [place], [address], 07/06/2020 09:30:21 08 20 07/06/2020 BNP (B-ty pe natri ureti c pepti de), serum or plasm a B-type natriuretic peptide 25.2 pg/mL 0.0-10 0.0 Not Available [facility] ([facility]) [address] [facility], [place], [address], 07/06/2020 09:30:21 Result Notes None recorded. Problems Name Problem SNOMED Code Status Onset Date Resolution Date Notes Provider Name and Address Organization Details Recorded Time Asthma 308847521 Completed 201905/17/2020 LATONIA WHITTEN NP [address] [place], [address], [facility] 0 14:55:42 Attentio n deficit hyperact ivity disorder 812532226 Active 2019 inattenti ve type LATONIA WHITTEN NP [address] [place], [address], [facility] 0 14:42:05 Major depressi ve disorder 544748103 Active 2019 single episode severe without psychosis LATNOIA WHITTEN NP [address] [place], [address], [facility] 0 14:42:19 Mixed receptiv e-expres sive language disorder 32929582 Active 2019 LATONIA WHITTEN NP [address] [facility] [place], [address], [place] - [facility] 0 14:42:30 Nocturna l enuresis 4964413 Active 2019 LATONIA WHITTEN NP [address] [place] [place], [address], [place] - [facility] 0 14:42:38 Foot pain 93592047 Active 2019 LATONIA WHITTEN NP [address] [facility] [place], [address], [place] - [facility] 0 14:42:44 Intermit tent asthma 437686763 Active 2019 LATONIA WHITTEN NP [address] [place], [address], [place] - [facility] 0 14:42:51 Mild intermit tent asthma 701407644 Active 2019 LATONIA WHITTEN NP [address] [facility] [place], [address], [place] - [facility] 0 14:44:20 Teenage pregnanc y 993929095 Completed 201905/17/2020 LATONIA WHITTEN NP [address] [facility] [place], [address], [place] - [facility] 0 14:44:33 Chlamydi al infectio n 726463739 Completed 201905/17/2020 8 LATONIA WHITTEN NP [address] [facility] [place], [address], [place] - [facility] 0 14:45:06 Vitamin D deficien cy 85924815 Active 2019 LATONIA WHITTEN NP [address] [facility] [place], [address], [place] - [facility] 0 14:49:39 Venereal disease screenin g Active 2019 LATONIA WHITTEN NP [address] [place], [address], [facility] 0 15:05:49 Viral screenin g Active 2019 LATONIA WHTITEN, BOWLING PIN SETTERS INSTALLER [address] [place], [address], [facility] 0 15:06:23 Long-ter m drug therapy Active 2019 LATONIA WHITTEN, BOWLING PIN SETTERS INSTALLER [address] [place], [address], [facility] 0 16:34:06 Edema of lower extremit y 653623528 Active 2019 LATONIA WHITTEN, BOWLING PIN SETTERS INSTALLER [address] [place], [address], [facility] 0 16:37:22 Problem Notes None recorded. Procedures Surgical History Date Name Laterality Status Provider Name and Address Organization Details Recorded Time [facility] [address] [place], [address], [facility] 05/17/2020 14:45:18 correction of clubfoot completed [facility] [address] [place], [address], [facility] 05/17/2020 14:45:44 Unlisted px foot/toes completed [facility] [address] [place], [address], [facility] 07/05/2020 16:26:38 Imaging Results None recorded. Procedure Notes None recorded. Medical Equipment Implant [employer] Issuing Agency Serial Number Lot Number Status Provider Name and Address Organization Details Recorded Time control [employer] [facility] [address] [place], [address], [facility] 05/17/2020 14:52:49 Allergies No known drug allergies [...] in Arterial blood by Pulse oximetry Systolic And Diastolic Provider Name and Address Organization Details Last Updated DateTime 0 160.02 cm 16 /min 34.3 kg/m2 97 % 38044.7 6 g 99 % 99 % 107/65 mm[Hg] [facility] [address] [place], [address] , [facility] 0 14:51:58 Date Recorded Body height Body mass index (BMI) [Percentile] Per age and sex Body mass index (BMI) Body weight Respiratory rate Body temperature Oxygen saturation Oxygen saturation in Arterial blood by Pulse oximetry Heart rate Systolic And Diastolic Provider Name and Address Organization Details Last Updated DateTime 0 160.02 cm 97 % 34.3 kg/m2 96447.2 g 16 /min 97.4 [degF] 96 % 96 % 88 /min 115/69 mm[Hg] [facility] [address] [place], [address], [facility] 0 16:24:32 Social History Question Answer Notes LastModified by Organizat ion Details LastModified Time Tobacco Smoking Status Never Smoker [facility] [address] [place], [address], [facility] 05/17/2020 14:40:23 Do You Have An Advance [...] N Breast Cancer N Blood Transfusion N Hypothyroidism N Depression Y COPD N Lung Disease N Developmental or Behavioral Disorders N Defects or Inherited Disease N Breast Problem N Bipolar N Difficulty Swallowing N Anesthesia Complications N Meniere's disease N Anxiety Disorder Y Muscle, Joint, or Bone Problems N Obesity N Vision or Eye Problems N Arthritis N Polyps N Infertility N Mental Disorder N Cancer N Varicosities N Stroke N Endometriosis N Bladder or Kidney Problems N High Cholesterol N Liver Disease N Headaches N Fibromyalgia N Kidney Disease N Allergies/Hayfever N Heart [...] N Heart Disease N Pulmonary Embolism N Chronic Ear Infections N Pre-Eclampsia N Hypertension N Chicken Pox N Autism Spectrum Disorder (ASD) N Osteoporosis N Thrombophilias N Gynecological HistoryNo gynecological history recorded. Obstetrics History GPAL:G 0 P 0 0 0 0 Past Encounters Encounter ID Performer Location Encounter Start Date Encounter Closed Date Diagnosis/Indication Diagnosis SNOMED-CT Code Diagnosis ICD10 Code Diagnosis Note [id number] LATONIA WHITTEN NP [facility] (059) [address] [place] [address] 05/17/2020 14:13:55 05/24/2020 10:04:57 Vitamin D deficiency 44026136 E55.9 Status: Uncontroll ed Start meds Foot pain 92952611 M79.6 73 Status: Uncontroll ed Podiatry referral ordered Intermittent asthma 4276 26116 J45.20 Status: Stable Hasn't used rescue inhaler in months Venereal d isease screening 798004676 Z11.3 Status: Unclear Check swabs Viral screening 30877220 4 Z11.59 Status: Unclear Check labs [id number] LATONIA WHITTEN NP [facility] (982) [address] [place] [address] 07/05/2020 16:17:37 07/08/2020 15:42:28 Vitamin D deficiency 39406046 E55.9 Status: Unclear I started Vitmain D2 50,000 units PO QWEEK x6 weeks 7 weeks agoCheck Vit D levelStart Vit D3 2,000 units PO QDAY Long-term drug therapy 573137828 Z79.899 Status: Ongoing Check labs Edema of l ower extremity 205040346 R60.0 Status: Ongoing I reviewed her labs, [...] sure it's not heart related. 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 Reported BLE edema has been ongoing for years and impacting quality of life. Reports bilateral surgery during young childhood (over a decade ago) and reports has been having pain and swelling since then. LATONIA WHITTEN NP [address] [place], [address], [facility] 07/06/2020 14:23:10 OBGyn Episode No OBEpisode recorded.
== END 2025-05-28 23:59 | disposition home or self-care (01) ==
LOC: RAD 10:45
PROVIDERS: PCP Nurse Practitioner Family; Visit Provider Obstetrics & Gynecology
DX: O36.63X0 Maternal care for excessive fetal growth, third trimester, not applicable or unspecified (principal); Z3A.30 30 weeks gestation of pregnancy
CPT/HCPCS: 76816

== ENCOUNTER 2025-06-22 19:05 | Outpatient (CLI) | payer OTHER, SELFPAY ==
[2025-06-22 19:10] VITALS: BMI 41.4
--- OUTSIDE RECORDS SUMMARY | 2025-06-22 19:10 | XMS_ITS | Clinical Summary ---
Author Organization [facility] Address [address] [facility], [address] [place] [address] Care Team Providers Care Collections Manager Name Role Phone Antonette Mcgee MD Primary Care Provider [phone] Allergies Active Allergy Reactions Criticality Noted Date [...] place to sleep or slept in a intermediate (including now)? No 01/02/2024 Food Insecurity Answer [...] Relevant to Health Maintenance Insurance MEDICAID MEDICAID [facility] MEDICAID Advance Directives Documents on File Type Date Recorded Patient Felt Carbonizer Expl anation ACP-Advance Directive 05/03/2016 4:02 PM * Full Code (Latest Code Status on File) Date Activated Date Inactivated Comments 02/25/2017 11:58 AM 02/27/2017 4:13 PM * Full Code Date Activated Date Inactivated Comments 02/25/2017 5:20 AM 02/25/2017 11:58 AM Care Teams Collections Manager Relationship Specialty Start Date End Date Antonette Mcgee MD [address] [facility] [address] [place] [address] PCP - General Internal Medicine 09/15/22
--- OUTSIDE RECORDS SUMMARY | 2025-06-22 19:10 | XMS_ITS | Clinical Summary ---
Author Organization Healthcare Address [address] [place] [address] Care Team Providers Care Tight Rope Walker Name Role Phone MedardoMichell Kenyatta JOSEPH Primary Care Provider [phone] Allergies Active Allergy Reactions Criticality Noted Date [...] 19+ 3-dose series) 2020 [facility]-Pap Smear 2022 [id number] Vaccine (1 - season) 2024 UKY-Influenza Vaccine [...] age to complete this topic Insurance AETNA [facility] MEDICAID Care Teams Tight Rope Walker Relationship Specialty Start Date End Date Michell Batres APRN [address] [place] [address] PCP - General 09/29/24
[2025-06-22 19:33] VITALS: BP 132/73; PULSE 113; RESP 16; TEMP 36.8; O2SAT 97; BMI 41.4
[2025-06-22 19:38] LABS: Microscopic, Urine URINE MICROSCOPIC (MICROSCOPIC)
[2025-06-22 19:42] LABS: Bilirubin,Urine Negative (Negative); Color,Urine YELLOW (Yellow); Glucose,Urine (UA) Negative (Negative); Ketones,Urine Negative (Negative); Leukocyte Esterase,Urine Negative (Negative); PH,Urine 6.0 (5.0-8.5); Protein,Urine TRACE (Negative); Specific Gravity, Urine >= 1.030 (1.005-1.030); Urobilinogen,Urine 0.2 EU/dl (0.2)
[2025-06-22 20:25] LABS: Bacteria,Urine Trace /lpf; WBC,Urine Occasional #/hpf (0-3)
[2025-06-22 20:26] LABS: Calcium Oxalate Crystals,Urine 1+ /lpf
[2025-06-22] MEDS: ACETAMINOPHEN 500MG TAB 1000 MG PO (20:35)
[2025-06-22] MEDS: LACTATED RINGERS 1000ML 1,000 ML 999 ML IV (20:35)
== END 2025-06-22 21:47 | disposition home or self-care (01) ==
LOC: OBOUT 19:08 → OB 19:09
PROVIDERS: PCP Nurse Practitioner Family; Visit Provider Obstetrics & Gynecology
DX: O99.213 Obesity complicating pregnancy, third trimester (principal); E66.9 Obesity, unspecified; Z3A.32 32 weeks gestation of pregnancy
CPT/HCPCS: 59025; 81001; 96360; 99212; G0463; J7120

== ENCOUNTER 2025-06-26 12:07 | Outpatient (CLI) | payer OTHER, SELFPAY ==
--- OUTSIDE RECORDS SUMMARY | 2025-06-26 12:09 | XMS_ITS | Clinical Summary ---
Author Organization Healthcare Address [address] [place] [address] Care Team Providers Care It Software Developer Name Role Phone MedardoMichell Kenyatta JOSEPH Primary Care Provider [phone] Allergies Active Allergy Reactions Criticality Noted Date [...] 19+ 3-dose series) 2020 UKY-Pap Smear 2022 [id number] Vaccine (1 - season) 2024 UKY-Influenza Vaccine [...] age to complete this topic Insurance AETNA [facility] MEDICAID Care Teams It Software Developer Relationship Specialty Start Date End Date Michell Batres APRN [address] [place] [address] PCP - General 09/29/24
--- NOTE | 2025-06-26 12:15 | US_ITS ---
PROCEDURE: US OB FOLLOW UP CLINICAL INDICATION: Needs for LGA w/ ARON COMPARISON: US US OB /MATERNAL DETAIL from 03/06/2025 US US OB FOLLOW UP from 03/27/2025 US US OB FOLLOW UP from 05/28/2025 FINDINGS: Transabdominal sonographic images of the pelvis were obtained. The following parameters are obtained: From her established due date she is 34weeks 6days Viable fetus in the cephalic presentation with a posterior placenta grade 2. The cervix measures 3.83 cm heart rate: 167bpm bpm. Average ultrasound age 37 weeks 2 days Estimated weight 2696 grams, 5 lb 15 oz BPD: 34weeks 4days, 43 percentile HC: 36weeks 6days, 63 percent AC: 36weeks 0 days, 83 percentile FL: 34weeks 5days, 37 percentile HC/AC: 1.02 FL/BPD: 0.79 FL/AC: 0.21 Growth percentile: 66 Amniotic fluid index: 11.7cm, MVP 5.27 cm No obvious anomalies evident. profile seen, stomach, bladder, kidneys, three-vessel cord, four chamber heart appear normal. IMPRESSION: 1. Viable fetus in the cephalic presentation with a posterior placenta grade 1. 2. The fluid is within normal limits with an amniotic fluid index 11.7 cm, MVP 5.27 cm. 3. The fetus is active. 4. There has been good interval growth with the fetus currently 66 percentile. 5. Limited anatomical scan appears normal. Dictated by: Chandana Zheng MD 06/27/2025 09:03 Chandana Zheng MD in OV 06/27/2025 09:03
== END 2025-06-26 23:59 | disposition home or self-care (01) ==
LOC: RAD 12:07
PROVIDERS: PCP Nurse Practitioner Family; Visit Provider Obstetrics & Gynecology
DX: O36.63X0 Maternal care for excessive fetal growth, third trimester, not applicable or unspecified (principal); Z3A.34 34 weeks gestation of pregnancy
CPT/HCPCS: 76816; 76819

== ENCOUNTER 2025-06-28 21:28 | Outpatient (CLI) | payer OTHER, SELFPAY ==
--- OUTSIDE RECORDS SUMMARY | 2017-04-09 06:19 | XMS_ITS | Continuity of Care Document ---
Author Organization [facility] Address [address] [place] [address] Phone Care Team Providers Care Infrastructure Architect Name Role Phone Mickey Huynh MD Unavailable [...] Diagnoses Date Provider Providers Copied on Encounter [facility], [address], [place], [place], [address], tel:[phone] Michael Gomez structural engineer No Information 7 Lino Arevalo. [address], [place], [place], [address] , [place]. [phone] OFFICE VISIT/NEW LEVEL II [facility], [address], [place], [place], [address], tel:[phone] Michael Gomez structural engineer check (chief complaint) Removal of nereyda 7 Lino Arevalo. [address], [place], [place], [address] , [place]. tel:[phone] [facility]ITAL [facility], [address], [place], [place], [address], [place] tel:[phone] [place] structural engineer Practice Old No Information 7 Elida Marmolejo. [address], [place], [place], [address] , [place]. tel: [phone] INIT HOSP.CARE/LOW [facility], [address], [place], [place], [address], [place] tel:[phone] [place] structural engineer No Information 7 Lino Arevalo. [address], [place], [place], [address] , [place]. tel: [phone] Family History Family Member Type Diagnosis Age At Onset Paternal grandmother Problem (finding) hypertension Paternal grandmother Problem (finding) Paternal grandmother Problem (finding) Alive and well Paternal grandmother Problem (finding) hyperchol esterolemia in first degree relative Paternal grandmother Problem (finding) Thyroid disease Payers Payer name Insurance type Covered democrat ID Authoriza tion(s) [employer] [facility] Medicaid CI [id number] [facility] Medical [id number] Social History Type Description Quantity Date Captured [...]
--- OUTSIDE RECORDS SUMMARY | 2025-06-28 21:31 | XMS_ITS | Clinical Summary ---
Author Organization [facility] Address [address], [address] [place] [address] Care Team Providers Care Synoptic Meteorologist Name Role Phone Antonette Mcgee MD Primary Care Provider [phone] Allergies Active Allergy Reactions Criticality Noted Date [...] place to sleep or slept in a prison (including now)? No 01/02/2024 Food Insecurity Answer [...] Relevant to Health Maintenance Insurance MEDICAID MEDICAID [facility] MEDICAID Advance Directives Documents on File Type Date Recorded Patient Disaster Recovery Analyst Expl anation ACP-Advance Directive 05/03/2016 4:02 PM * Full Code (Latest Code Status on File) Date Activated Date Inactivated Comments 02/25/2017 11:58 AM 02/27/2017 4:13 PM * Full Code Date Activated Date Inactivated Comments 02/25/2017 5:20 AM 02/25/2017 11:58 AM Care Teams Synoptic Meteorologist Relationship Specialty Start Date End Date Antonette Mcege MD [address] [facility] [address] [place] [address] PCP - General Internal Medicine 09/15/22
--- OUTSIDE RECORDS SUMMARY | 2025-06-28 21:31 | XMS_ITS | Clinical Summary ---
Author Organization Healthcare Address [address] [place] [address] Care Team Providers Care Threat Monitoring Analyst Name Role Phone MedardoMichell Kenyatta JOSEPH Primary Care Provider [phone] Allergies Active Allergy Reactions Criticality Noted Date [...] 19+ 3-dose series) 2020 [facility]Y-Pap Smear 2022 [id number] Vaccine (1 - season) 2024 UKY-Influenza Vaccine [...] age to complete this topic Insurance AETNA [facility] MEDICAID Care Teams Threat Monitoring Analyst Relationship Specialty Start Date End Date Michell Batres APRN [address] [place] [address] PCP - General 09/29/24
[2025-06-28 22:02] VITALS: BP 112/70; PULSE 114; RESP 18; TEMP 37.2; O2SAT 96; BMI 42.5
[2025-06-28 23:01] LABS: Microscopic, Urine URINE MICROSCOPIC (MICROSCOPIC)
[2025-06-28 23:04] LABS: Bilirubin,Urine Negative (Negative); Color,Urine YELLOW (Yellow); Glucose,Urine (UA) Negative (Negative); Ketones,Urine Negative (Negative); Leukocyte Esterase,Urine Negative (Negative); PH,Urine 6.0 (5.0-8.5); Protein,Urine Negative (Negative); Specific Gravity, Urine 1.025 (1.005-1.030); Urobilinogen,Urine 0.2 EU/dl (0.2)
[2025-06-28 23:08] LABS: Bacteria,Urine Trace /lpf; Calcium Oxalate Crystals,Urine Trace /lpf
== END 2025-06-28 23:27 | disposition home or self-care (01) ==
LOC: OBOUT 21:29 → OB 21:31
PROVIDERS: PCP Nurse Practitioner Family; Visit Provider Obstetrics & Gynecology
DX: O26.893 Other specified pregnancy related conditions, third trimester (principal); R10.9 Unspecified abdominal pain; Z3A.34 34 weeks gestation of pregnancy
CPT/HCPCS: 59025; 81001; 99212; G0463

== ENCOUNTER 2025-07-03 12:15 | Outpatient (CLI) | payer OTHER, SELFPAY ==
--- OUTSIDE RECORDS SUMMARY | 2025-07-06 13:08 | XMS_ITS | Clinical Summary ---
Author Organization Healthcare Address [address] [place] [address] Care Team Providers Care Hand Candy Molder Name Role Phone MedardoMichell Kenyatta JOSEPH Primary Care Provider [phone] Allergies Active Allergy Reactions Criticality Noted Date [...] 19+ 3-dose series) 2020 UKY-Pap Smear 2022 [id number] Vaccine (1 - season) 2024 UKY-Influenza Vaccine [...] age to complete this topic Insurance AETNA [facility] MEDICAID Care Teams Hand Candy Molder Relationship Specialty Start Date End Date Michell Batres APRN [address] [place] [address] PCP - General 09/29/24
--- OUTSIDE RECORDS SUMMARY | 2025-07-06 13:08 | XMS_ITS | Clinical Summary ---
Author Organization [facility] Address [address] [facility] [address], [address] [place] [address] Care Team Providers Care Lead Mason Tender Name Role Phone Antonette Mcgee MD Primary Care Provider [phone] Allergies Active Allergy Reactions Criticality Noted Date [...] place to sleep or slept in a fci (including now)? No 01/02/2024 Food Insecurity Answer [...] Relevant to Health Maintenance Insurance MEDICAID MEDICAID [facility] MEDICAID Advance Directives Documents on File Type Date Recorded Patient Manager Membership Expl anation ACP-Advance Directive 05/03/2016 4:02 PM * Full Code (Latest Code Status on File) Date Activated Date Inactivated Comments 02/25/2017 11:58 AM 02/27/2017 4:13 PM * Full Code Date Activated Date Inactivated Comments 02/25/2017 5:20 AM 02/25/2017 11:58 AM Care Teams Lead Mason Tender Relationship Specialty Start Date End Date Antonette Mcgee MD [address] [facility] [address] [place] [address] PCP - General Internal Medicine 09/15/22
== END 2025-07-03 23:59 ==
LOC: LAB.DROPOF 07-06 13:02
PROVIDERS: PCP Obstetrics & Gynecology; Visit Provider Obstetrics & Gynecology
DX: O99.210 Obesity complicating pregnancy, unspecified trimester (principal); O99.891 Other specified diseases and conditions complicating pregnancy; R10.9 Unspecified abdominal pain; R82.71 Bacteriuria
CPT/HCPCS: 86403

== ENCOUNTER 2025-07-09 22:19 | Outpatient (CLI) | payer OTHER, SELFPAY ==
--- OUTSIDE RECORDS SUMMARY | 2017-04-09 06:19 | XMS_ITS | Continuity of Care Document ---
Author Organization [facility] Address [address] [place] [address] Phone Care Team Providers Care Senior Graduate Advisor Name Role Phone Mickey Huynh MD Unavailable [...] Diagnoses Date Provider Providers Copied on Encounter [facility], [address], [place], [place], [address], tel:[phone] Michael Gomez local truck driver No Information 7 Lino Arevalo. [address], [place], [place], [address] , [place]. [phone] OFFICE VISIT/NEW LEVEL II [facility], [address], [place], [place], [address], tel:[phone] Michael Gomez local truck driver check (chief complaint) Removal of nereyda 7 Lino Arevalo. [address], [place], [place], [address] , [place]. tel:[phone] [facility], [address], [place], [place], [address], [place] tel:[phone] [place] local truck driver Practice Old No Information 7 Elida Marmolejo. [address], [place], [place], [address] , [place]. tel: [phone] INIT HOSP.CARE/LOW [facility], [address], [place], [place], [address], [place] tel:[phone] Jason local truck driver No Information 7 Lino Arevalo. [address], [place], [place], [address] , [place]. tel: [phone] Family History Family Member Type Diagnosis Age At Onset Paternal grandmother Problem (finding) Thyroid disease Paternal grandmother Problem (finding) hyperchol esterolemia in first degree relative Paternal grandmother Problem (finding) Alive and well Paternal grandmother Problem (finding) Paternal grandmother Problem (finding) hypertension Payers Payer name Insurance type Covered libertarian ID Authoriza tion(s) [employer] [facility] Medicaid CI [id number] [facility] Medical [id number] Social History Type Description Quantity Date Captured [...]
--- OUTSIDE RECORDS SUMMARY | 2025-07-09 22:23 | XMS_ITS | Clinical Summary ---
Author Organization [facility] Address [address] [facility] [address], [address] [place] [address] Care Team Providers Care Forming Tube Selector Name Role Phone Antonette Mcgee MD Primary Care Provider [phone] Allergies Active Allergy Reactions Criticality Noted Date [...] Relevant to Health Maintenance Insurance MEDICAID MEDICAID [facility] MEDICAID Advance Directives Documents on File Type Date Recorded Patient Substation Engineer Expl anation ACP-Advance Directive 05/03/2016 4:02 PM * Full Code (Latest Code Status on File) Date Activated Date Inactivated Comments 02/25/2017 11:58 AM 02/27/2017 4:13 PM * Full Code Date Activated Date Inactivated Comments 02/25/2017 5:20 AM 02/25/2017 11:58 AM Care Teams Forming Tube Selector Relationship Specialty Start Date End Date Antonette Mcgee MD [address] [facility] [address] [place] [address] PCP - General Internal Medicine 09/15/22
--- OUTSIDE RECORDS SUMMARY | 2025-07-09 22:23 | XMS_ITS | Clinical Summary ---
Author Organization Healthcare Address [address] [place] [address] Care Team Providers Care Standards Engineer Name Role Phone MedardoMichell Kenyatta JOSEPH Primary Care Provider Allergies Active Allergy Reactions Criticality Noted Date [...] 19+ 3-dose series) 2020 [facility]-Pap Smear 2022 [id number] Vaccine (1 - season) 2024 [facility]-Influenza Vaccine [...] age to complete this topic Insurance AETNA [facility] MEDICAID Care Teams Standards Engineer Relationship Specialty Start Date End Date Michell Batres APRN [address] [place] [address] PCP - General 09/29/24
[2025-07-09 22:43] VITALS: BP 116/78; PULSE 119; RESP 16; TEMP 37.2; O2SAT 99; BMI 43.0
[2025-07-09 22:51] LABS: Microscopic, Urine URINE MICROSCOPIC (MICROSCOPIC)
[2025-07-09 22:52] LABS: Bilirubin,Urine Negative (Negative); Color,Urine YELLOW (Yellow); Glucose,Urine (UA) Negative (Negative); Ketones,Urine Negative (Negative); Leukocyte Esterase,Urine Negative (Negative); PH,Urine 7.0 (5.0-8.5); Protein,Urine Negative (Negative); Specific Gravity, Urine 1.010 (1.005-1.030); Urobilinogen,Urine 0.2 EU/dl (0.2)
[2025-07-09 23:03] LABS: Squamous Epithelial Cell,Urine Occasional #/hpf (0-5); WBC,Urine Occasional #/hpf (0-3)
[2025-07-10] MEDS: LACTATED RINGERS 1000ML 1,000 ML 999 ML IV (01:30)
== END 2025-07-10 02:20 | disposition home or self-care (01) ==
LOC: OBOUT 22:21 → OB 22:22
PROVIDERS: PCP Nurse Practitioner Family; Visit Provider Obstetrics & Gynecology
DX: O99.213 Obesity complicating pregnancy, third trimester (principal); O26.893 Other specified pregnancy related conditions, third trimester; O99.891 Other specified diseases and conditions complicating pregnancy; E66.9 Obesity, unspecified; R10.9 Unspecified abdominal pain; R82.71 Bacteriuria; Z3A.35 35 weeks gestation of pregnancy
CPT/HCPCS: 59025; 81001; 96360; 96361; 99212; G0463; J7120

== ENCOUNTER 2025-07-15 14:03 | Outpatient (CLI) | payer OTHER, SELFPAY ==
--- OUTSIDE RECORDS SUMMARY | 2017-04-09 06:19 | XMS_ITS | Continuity of Care Document ---
Author Organization [facility] Address [address] [place] [address] Phone Care Team Providers Care Manager Landscape Name Role Phone Mickey Huynh MD Unavailable Unavailable Medications Medication Instructions Dosage Effective Dates (start - stop) Status Comments IRON (unknown strength) Not Available - Active COLACE (unknown strength) Not Available - Active IBUPROFEN (unknown strength) Not Available - Active Procedures Procedure Date OFFICE VISIT/NEW LEVEL II HOSPITAL DISCHARGE INIT HOSP.CARE/LOW DELIVERY ONLY Hosp. Visit/Level I Low Complx Advance Directives Directive Yes / No Effective Date File Name No Information Encounters Encounter Description Practice Location Reason(s) For Visit Diagnoses Date Provider Providers Copied on Encounter [facility], [address], [place], [place], [address], tel:[phone] Michael Gomez neighborhood conservation officer No Information 7 Lino Arevalo. [address], [place], [place], [address] , [place]. [phone] OFFICE VISIT/NEW LEVEL II [facility], [address], [place], [place], [address], tel:[phone] Michael Gomez neighborhood conservation officer check (chief complaint) Removal of nereyda 7 Lino Arevalo. [address], [place], [place], [address] , [place]. tel:[phone] [facility]ITAL [facility], [address], [place], [place], [address], [place] tel:[phone] [place] neighborhood conservation officer Practice Old No Information 7 Elida Marmolejo. [address], [place], [place], [address] , [place]. tel: [phone] INIT HOSP.CARE/LOW [facility], [address], [place], [place], [address], [place] tel:[phone] Jason neighborhood conservation officer No Information 7 Lino Arevalo. [address], [place], [place], [address] , [place]. tel: [phone] Family History Family Member Type Diagnosis Age At Onset Paternal grandmother Problem (finding) Thyroid disease Paternal grandmother Problem (finding) hyperchol esterolemia in first degree relative Paternal grandmother Problem (finding) Alive and well Paternal grandmother Problem (finding) Paternal grandmother Problem (finding) hypertension Payers Payer name Insurance type Covered green party ID Authoriza tion(s) [employer] [facility] Medicaid CI [id number] [facility] Medical [id number] Social History Type Description Quantity Date Captured [...]
--- OUTSIDE RECORDS SUMMARY | 2025-07-15 14:07 | XMS_ITS | Clinical Summary ---
Author Organization [facility] Address [address], [address] [place] [address] Care Team Providers Care Silver Steward Name Role Phone Antonette Mcgee MD Primary Care Provider [phone] Allergies Active Allergy Reactions Criticality Noted Date [...] place to sleep or slept in a correction (including now)? No 01/02/2024 Food Insecurity Answer [...] Relevant to Health Maintenance Insurance MEDICAID MEDICAID [facility] MEDICAID Advance Directives Documents on File Type Date Recorded Patient Financial Advocate Expl anation ACP-Advance Directive 05/03/2016 4:02 PM * Full Code (Latest Code Status on File) Date Activated Date Inactivated Comments 02/25/2017 11:58 AM 02/27/2017 4:13 PM * Full Code Date Activated Date Inactivated Comments 02/25/2017 5:20 AM 02/25/2017 11:58 AM Care Teams Silver Steward Relationship Specialty Start Date End Date Antonette Mcgee MD [address] [facility] [address] [place] [address] PCP - General Internal Medicine 09/15/22
--- OUTSIDE RECORDS SUMMARY | 2025-07-15 14:08 | XMS_ITS | Clinical Summary ---
Author Organization Healthcare Address [address] [place] [address] Care Team Providers Care Trimming Caser Name Role Phone MedardoMichell Kenyatta JOSEPH Primary Care Provider [phone] Allergies Active Allergy Reactions Criticality Noted Date [...] 19+ 3-dose series) 2020 [facility]-Pap Smear 2022 [id number] Vaccine (1 - season) 2024 [facility]-Influenza Vaccine [...] to complete this topic Insurance AETNA [facility] MEDICAID Care Teams Trimming Caser Relationship Specialty Start Date End Date Michell Batres APRN [address] [place] [address] PCP - General 09/29/24
[2025-07-15 14:22] VITALS: BMI 43.0
[2025-07-15 14:24] VITALS: BMI 43.0
--- NOTE | 2025-07-15 15:17 | US_ITS ---
PROCEDURE INFORMATION: Exam: US Biophysical Profile Without Non-Stress Test Exam date and time: 07/15/2025 3:33 PM Age: 24 years old Clinical indication: Other: Dec movement; ; Additional info: Decreased movement TECHNIQUE: Imaging protocol: US biophysical profile without non-stress testing. COMPARISON: US OB FOLLOW UP 06/26/2025 12:06 PM FINDINGS: Gestation: Single live IUP which is cephalic in presentation with heart rate of 144. Amniotic fluid appropriate for age with normal ARON of 9.55 cm. Cervical length normal at 2.96 cm. Placenta fundal without evident previa. heart rate: 144 bpm Amniotic fluid index: ARON is 9.55 cm. BIOPHYSICAL PROFILE: breathing (BPP): 2 /2 gross body movement (BPP): 2 /2 tone (BPP): 2 /2 Amniotic fluid (BPP): 2 /2 Biophysical profile score (BPP): 8 /8 MATERNAL ANATOMY: Cervix: Cervical length measures 2.96 cm. IMPRESSION: Biophysical profile score is 8 out of 8.
[2025-07-15] MEDS: LACTATED RINGERS 1000ML 1,000 ML 999 ML IV (15:25)
== END 2025-07-15 16:17 | disposition home or self-care (01) ==
LOC: OBOUT 14:05 → OB 14:07
PROVIDERS: PCP Nurse Practitioner Family; Visit Provider Obstetrics & Gynecology
DX: O36.8190 Decreased fetal movements, unspecified trimester, not applicable or unspecified (principal); Z3A.00 Weeks of gestation of pregnancy not specified
CPT/HCPCS: 59025; 76819; 96360; 99212; G0463; J7120

== ENCOUNTER 2025-07-20 12:35 | Outpatient (CLI) | payer OTHER, SELFPAY ==
--- OUTSIDE RECORDS SUMMARY | 2017-04-09 06:19 | XMS_ITS | Continuity of Care Document ---
Author Organization [facility] Address [address] [place] [address] Phone Care Team Providers Care Exercise Physiologist Certified Name Role Phone Mickey Huynh MD Unavailable Unavailable Medications Medication Instructions Dosage Effective Dates (start - stop) Status Comments IBUPROFEN (unknown strength) Not Available - Active COLACE (unknown strength) Not Available - Active IRON (unknown strength) Not Available - Active Procedures Procedure Date OFFICE VISIT/NEW LEVEL II HOSPITAL DISCHARGE INIT HOSP.CARE/LOW DELIVERY ONLY Hosp. Visit/Level I Low Complx Advance Directives Directive Yes / No Effective Date File Name No Information Encounters Encounter Description Practice Location Reason(s) For Visit Diagnoses Date Provider Providers Copied on Encounter [facility], [address], [place], [place], [address], tel:[phone] Michael Gomez yard attendant No Information 7 Lino Arevalo. [address], [place], [place], [address] , [place]. [phone] OFFICE VISIT/NEW LEVEL II [facility], [address], [place], [place], [address], tel:[phone] Michael Gomez yard attendant check (chief complaint) Removal of nereyda 7 Lino Arevalo. [address], [place], [place], [address] , [place]. tel:[phone] [facility], [address], [place], [place], [address], [place] tel:[phone] [place] yard attendant Practice Old No Information 7 Elida Marmolejo. [address], [place], [place], [address] , [place]. tel: [phone] INIT HOSP.CARE/LOW [facility], [address], [place], [place], [address], [place] tel:[phone] Jason yard attendant No Information 7 Lino Arevalo. [address], [place], [place], [address] , [place]. tel: [phone] Family History Family Member Type Diagnosis Age At Onset Paternal grandmother Problem (finding) Thyroid disease Paternal grandmother Problem (finding) hyperchol esterolemia in first degree relative Paternal grandmother Problem (finding) Alive and well Paternal grandmother Problem (finding) Paternal grandmother Problem (finding) hypertension Payers Payer name Insurance type Covered libertarian ID Authoriza tion(s) [employer] [facility] Medicaid CI [id number] [facility] Medical [id number] Social History Type Description Quantity Date Captured Comments Alcohol Use Details Unknown Caffeine Use Details Unknown Tobacco Use Status No Information Smoking Status No Information Sex Female Chief Complaint And Reason For Visit No Information Reason For Referral Reason For Referral No Information History Of Present Illness Encounter Date Complaint History Of Prese nt Illness check Staple Removal - delivered by c section on 02/25/17 DOING [employer] HEALING NEREYDA REMOVED FOLLOW UP IN 4 WEEKS Functional Status Date Functional Assessmen t No Information Instructions Date Instruction Additional Infor rogelio answered all questions Related t o Removal of nereyda Assessments Type Assessment Date No Information Patient Care Teams Name Effective Dates (start - stop) Status Members No Information
--- OUTSIDE RECORDS SUMMARY | 2025-07-20 12:39 | XMS_ITS | Clinical Summary ---
Author Organization Healthcare Address [address] [place] [address] Care Team Providers Care Sales Development Executive Name Role Phone MedardoMichell Kenyatta JOSEPH Primary Care Provider [phone] Allergies Active Allergy Reactions Criticality Noted Date [...] [facility]-Depression Screening 2001 [facility]-Hepatitis C Screening 2001 [facility]-Infant/Child/Adol SDOH Screenings 2001 [facility]-Varicella Vaccines (1 of 2 - 13+ 2-dose series) 2014 HPV Vaccines (1 - 3-dose series) 2016 [facility]- SDOH Screenings 2019 [facility]-Adult SDOH Screenings 2019 [facility]-DTaP,Tdap,and Td Vaccine s (4 - Tdap) 2020 08/14/2005, 06/11/2002, 04/01/2002 [facility]-Hepatitis B Vaccines (1 of 3 - 19+ 3-dose series) 2020 [facility]-Pap Smear 2022 [id number] Vaccine (1 - season) 2024 [facility]-Influenza Vaccine [...] age to complete this topic Insurance AETNA [facility] MEDICAID Care Teams Sales Development Executive Relationship Specialty Start Date End Date Michell Batres APRN [address] [place] [address] PCP - General 09/29/24
--- OUTSIDE RECORDS SUMMARY | 2025-07-20 12:39 | XMS_ITS | Clinical Summary ---
Author Organization [facility] Address [address], [address] [place] [address] Care Team Providers Care Management Consulting Name Role Phone Antonette Mcgee MD Primary Care Provider [phone] Allergies Active Allergy Reactions Criticality Noted Date [...] place to sleep or slept in a jail (including now)? No 01/02/2024 Food Insecurity Answer [...] Relevant to Health Maintenance Insurance MEDICAID MEDICAID [facility] MEDICAID Advance Directives Documents on File Type Date Recorded Patient Wash Tub Machine Operator Expl anation ACP-Advance Directive 05/03/2016 4:02 PM * Full Code (Latest Code Status on File) Date Activated Date Inactivated Comments 02/25/2017 11:58 AM 02/27/2017 4:13 PM * Full Code Date Activated Date Inactivated Comments 02/25/2017 5:20 AM 02/25/2017 11:58 AM Care Teams Management Consulting Relationship Specialty Start Date End Date Antonette Mcgee MD [address] [facility] [address] [place] [address] PCP - General Internal Medicine 09/15/22
[2025-07-20 13:07] VITALS: BMI 43.0
[2025-07-20 13:08] LABS: Microscopic, Urine URINE MICROSCOPIC (MICROSCOPIC)
[2025-07-20 13:15] LABS: Bilirubin,Urine Negative (Negative); Color,Urine YELLOW (Yellow); Glucose,Urine (UA) Negative (Negative); Ketones,Urine Negative (Negative); Leukocyte Esterase,Urine Negative (Negative); PH,Urine 6.5 (5.0-8.5); Protein,Urine Negative (Negative); Specific Gravity, Urine 1.015 (1.005-1.030); Urobilinogen,Urine 0.2 EU/dl (0.2)
[2025-07-20 13:17] LABS: Fetal Membrane Rupture (Rapid) Negative (Negative)
[2025-07-20 13:29] VITALS: BP 139/88; PULSE 104; RESP 18; TEMP 36.7; O2SAT 96; BMI 43.0
[2025-07-20 13:37] LABS: Bacteria,Urine Trace /lpf
== END 2025-07-20 16:15 | disposition home or self-care (01) ==
LOC: OBOUT 12:37 → OB 12:39
PROVIDERS: PCP Nurse Practitioner Family; Visit Provider Obstetrics & Gynecology
DX: O99.213 Obesity complicating pregnancy, third trimester (principal); E66.9 Obesity, unspecified; Z3A.37 37 weeks gestation of pregnancy
CPT/HCPCS: 59025; 81001; 84112; 99212; G0463

== ENCOUNTER 2025-07-22 10:40 | Outpatient (CLI) | payer OTHER, SELFPAY ==
[2025-07-22 08:00] VITALS: BMI 43.0
--- OUTSIDE RECORDS SUMMARY | 2025-07-22 10:44 | XMS_ITS | Clinical Summary ---
Author Organization [facility] Address [address], [address] [place] [address] Care Team Providers Care Log Hooker Name Role Phone Antonette Mcgee MD Primary Care Provider [phone] Allergies Active Allergy Reactions Criticality Noted Date [...] place to sleep or slept in a fdc (including now)? No 01/02/2024 Food Insecurity Answer [...] Relevant to Health Maintenance Insurance MEDICAID MEDICAID [facility] MEDICAID Advance Directives Documents on File Type Date Recorded Patient Hospital Unit Clerk Expl anation ACP-Advance Directive 05/03/2016 4:02 PM * Full Code (Latest Code Status on File) Date Activated Date Inactivated Comments 02/25/2017 11:58 AM 02/27/2017 4:13 PM * Full Code Date Activated Date Inactivated Comments 02/25/2017 5:20 AM 02/25/2017 11:58 AM Care Teams Log Hooker Relationship Specialty Start Date End Date Antonette Mcgee MD [address] [facility] [address] [place] [address] PCP - General Internal Medicine 09/15/22
--- OUTSIDE RECORDS SUMMARY | 2025-07-22 10:44 | XMS_ITS | Clinical Summary ---
Author Organization Healthcare Address [address] [place] [address] Care Team Providers Care Tub Tender Name Role Phone MedardoMichell Kenyatta JOSEPH Primary Care Provider [phone] Allergies Active Allergy Reactions Criticality Noted Date [...] 19+ 3-dose series) 2020 [facility]-Pap Smear 2022 [id number] Vaccine (1 - season) 2024 [facility]-Influenza Vaccine [...] age to complete this topic Insurance AETNA [facility] MEDICAID Care Teams Tub Tender Relationship Specialty Start Date End Date Michell Batres APRN [address] [place] [address] PCP - General 09/29/24
[2025-07-22 11:28] LABS: Hematocrit 31.0 % (37.0-47.0); Hemoglobin 9.9 g/dL (12.2-16.2); Immature Granulocytes % 1.8 %; Mean Corpuscular HGB Conc 31.9 g/dL (31.8-35.4); Mean Corpuscular Hemoglobin 27.7 pg (27.0-31.2); Mean Corpuscular Volume 86.6 fl (81-99); Nucleated Red Blood Cells % 0.3 %; Platelet Count 207 K/mm3 (142-424); Red Blood Count 3.58 M/mm3 (4.20-5.40); Red Cell Distribution Width-SD 54.4 fL; White Blood Count 11.6 K/mm3 (4.8-10.8)
[2025-07-22 11:42] LABS: Alanine Aminotransferase 15 U/L (12-78); Albumin Level 3.5 g/dl (3.5-5.0); Albumin/Globulin Ratio 1.0 (1.1-1.8); Alkaline Phosphatase 152 U/L (38-126); Anion Gap 13.5 mEq/L (5-15); Aspartate Amino Transferase 22 U/L (14-36); Bilirubin,Total 0.4 mg/dl (0.2-1.3); Blood Urea Nitrogen 6 mg/dl (7-17); Calcium 9.2 mg/dl (8.4-10.2); Carbon Dioxide 21 mmol/L (22.0-30.0); Chloride 106 mmol/L (98-107); Creatinine Clearance Estimated 145 mL/min (50-200); Creatinine,Serum 0.50 mg/dl (0.52-1.04); Estimated Glomerular Filt Rate 153 ml/min (>60); GFR (African American) 185 ML/MIN (>60); Globulin 3.5 g/dL (1.3-3.2); Glucose 129 mg/dl (74-100); Potassium 3.5 mmoL/L (3.5-5.1); Sodium 137 mmol/L (136-145); Total Protein,Serum 7.0 g/dl (6.3-8.2)
[2025-07-22 17:01] LABS: Iron 78 ug/dL (37-170)
[2025-07-22 17:36] LABS: Ferritin 5.28 ng/ml (6.24-137)
[2025-07-22 17:50] LABS: Vitamin B12 171 pg/mL (239-931)
== END 2025-07-22 23:59 | disposition home or self-care (01) ==
LOC: PREOP 10:41
PROVIDERS: PCP Nurse Practitioner Family; Visit Provider Obstetrics & Gynecology
DX: Z01.812 Encounter for preprocedural laboratory examination (principal); O99.019 Anemia complicating pregnancy, unspecified trimester; O99.210 Obesity complicating pregnancy, unspecified trimester; O26.899 Other specified pregnancy related conditions, unspecified trimester; E66.9 Obesity, unspecified; R10.9 Unspecified abdominal pain; Z3A.00 Weeks of gestation of pregnancy not specified
CPT/HCPCS: 80053; 82607; 82728; 83540; 85025

== ENCOUNTER 2025-07-24 04:01 | Observation (INO) | payer OTHER, SELFPAY ==
--- OUTSIDE RECORDS SUMMARY | 2017-04-09 06:19 | XMS_ITS | Continuity of Care Document ---
Author Organization [facility] Address [address] [place] [address] Phone Care Team Providers Care Shaper Hand Name Role Phone Mickey Huynh MD Unavailable [...] Diagnoses Date Provider Providers Copied on Encounter [facility], [address], [place], [place], [address], tel:[phone] Michael Gomez stull hewer No Information 7 Lino Arevalo. [address], [place], [place], [address] , [place]. [phone] OFFICE VISIT/NEW LEVEL II [facility], [address], [place], [place], [address], tel:[phone] Michael Gomez stull hewer check (chief complaint) Removal of nereyda 7 Lino Arevalo. [address], [place], [place], [address] , [place]. tel:[phone] [facility]ITAL [facility], [address], [place], [place], [address], [place] tel:[phone] [place] stull hewer Practice Old No Information 7 Elida Marmolejo. [address], [place], [place], [address] , [place]. tel: [phone] INIT HOSP.CARE/LOW [facility], [address], [place], [place], [address], [place] tel:[phone] Jason stull hewer No Information 7 Lino Arevalo. [address], [place], [place], [address] , [place]. tel: [phone] Family History Family Member Type Diagnosis Age At Onset Paternal grandmother Problem (finding) Thyroid disease Paternal grandmother Problem (finding) hyperchol esterolemia in first degree relative Paternal grandmother Problem (finding) Alive and well Paternal grandmother Problem (finding) Paternal grandmother Problem (finding) hypertension Payers Payer name Insurance type Covered libertarian ID Authoriza tion(s) [employer] [facility] Medicaid CI [id number] [facility] Medical [id number] Social History Type Description Quantity Date Captured [...]
--- OUTSIDE RECORDS SUMMARY | 2025-07-24 01:47 | XMS_ITS | Clinical Summary ---
Author Organization [facility] Address [address], [address] [place] [address] Care Team Providers Care Laborer Pole Crew Name Role Phone Antonette Mcgee MD Primary Care Provider [phone] Allergies Active Allergy Reactions Criticality Noted Date [...] place to sleep or slept in a assisted (including now)? No 01/02/2024 Food Insecurity Answer [...] Relevant to Health Maintenance Insurance MEDICAID MEDICAID [facility] MEDICAID Advance Directives Documents on File Type Date Recorded Patient Plastics Spreading Machine Operator Expl anation ACP-Advance Directive 05/03/2016 4:02 PM * Full Code (Latest Code Status on File) Date Activated Date Inactivated Comments 02/25/2017 11:58 AM 02/27/2017 4:13 PM * Full Code Date Activated Date Inactivated Comments 02/25/2017 5:20 AM 02/25/2017 11:58 AM Care Teams Laborer Pole Crew Relationship Specialty Start Date End Date Antonette Mcgee MD [address] [facility] [address] [place] [address] PCP - General Internal Medicine 09/15/22
--- OUTSIDE RECORDS SUMMARY | 2025-07-24 01:47 | XMS_ITS | Clinical Summary ---
Author Organization Healthcare Address [address] [place] [address] Care Team Providers Care Patient Access Name Role Phone MedardoMichell Kenyatta JOSEPH Primary Care Provider [phone] Allergies Active Allergy Reactions Criticality Noted Date [...] 19+ 3-dose series) 2020 [facility]-Pap Smear 2022 [id number] Vaccine (1 - season) 2024 [facility]-Influenza Vaccine [...] age to complete this topic Insurance AETNA [facility] MEDICAID Care Teams Patient Access Relationship Specialty Start Date End Date Michell Batres APRN [address] [place] [address] PCP - General 09/29/24
[2025-07-24 01:54] VITALS: BMI 44.2
[2025-07-24 01:56] VITALS: BP 150/99; PULSE 118; RESP 18; TEMP 37.1; O2SAT 98; BMI 44.3
[2025-07-24 02:13] VITALS: BP 127/80; PULSE 88
[2025-07-24] MEDS: LACTATED RINGERS 1000ML 1,000 ML 999 ML IV (03:15)
[2025-07-24] MEDS: ACETAMINOPHEN 500MG TAB 1000 MG PO (04:51)
[2025-07-24 05:23] LABS: Bilirubin,Urine Negative (Negative); Color,Urine YELLOW (Yellow); Glucose,Urine (UA) Negative (Negative); Ketones,Urine Negative (Negative); Leukocyte Esterase,Urine Negative (Negative); Microscopic, Urine URINE MICROSCOPIC (MICROSCOPIC); PH,Urine 7.0 (5.0-8.5); Protein,Urine Negative (Negative); Specific Gravity, Urine <= 1.005 (1.005-1.030); Urobilinogen,Urine 0.2 EU/dl (0.2)
[2025-07-24 05:41] LABS: Bacteria,Urine 1+ /lpf; WBC,Urine Occasional #/hpf (0-3)
[2025-07-24] MEDS: LACTATED RINGERS 1000ML 1,000 ML 125 ML IV (06:12)
[2025-07-24 08:18] VITALS: BP 145/71; PULSE 84; RESP 16; TEMP 36.7; O2SAT 100
--- NOTE | 2025-07-24 09:53 | EXP.HPDC ---
General Admission date:: 07/24/25 Discharge date: 07/24/25 *Admission Date: 07/24/25 *Chief complaint: labor, previous section, vaginal bleeding *History of present illness: She is a 24-year-old 2 para 1 at 38 and 6 weeks gestational age. She has had a previous section for failure to progress and nonreassuring heart tracings. She came in early this morning with complaints of some vaginal bleeding and contractions. Nonstress test is category 1 reactive. She is having a few irregular contractions. She has had no further episodes of bleeding. [facility] Disclaimer: The information contained in this section may have been updated after the patient was seen, as this information can be updated by other users. Medical History Anemia affecting Obesity affecting History of anxiety History of asthma Surgical History H/O section H/O clubfoot correction Family History Family history of COPD (chronic obstructive pulmonary disease) Social History Smoking Status: Never smoker alcohol intake: never current occupational status: unemployed Travel in the last 8 weeks?: None Other Medical History Have you received the Flu Vaccine for this season: No Have you received the Pneumonia Vaccine: No Review of Systems Review of Systems Review of systems:: pertinent systems reviewed and negative unless documented below Exam Data for Last 24 hours Vital signs and Labs for Last 24 Hours: Temp Pulse Resp BP Pulse Ox O2 Del Method 98.1 F 84 16 145/71 H 100 Room Air 07/24/25 08:18 07/24/25 08:18 07/24/25 08:18 07/24/25 08:18 07/24/25 08:18 07/24/25 08:18 Laboratory Results - last 24 hr 07/24/25 02:55: Urine Color Yellow, Urine Appearance Clear, Urine pH 7.0, Ur Specific Berkley <= 1.005, Urine Protein Negative, Urine Glucose (UA) Negative, Urine Ketones Negative, Urine Blood Negative, Urine Nitrate Negative, Urine Bilirubin Negative, Urine Urobilinogen 0.2, Ur Leukocyte Esterase Negative, Urine WBC Occasional, Ur Squamous Epith Cells 3-5, Urine Bacteria 1+ I & O for Last 24 hours: Intake & Output 07/21/25 07/22/25 07/23/25 07/24/25 11:59 11:59 11:59 11:59 Intake Total 1000 / 1000 Balance 1000 / 1000 Weight 249 lb 15.997 oz Constitutional Constitutional: no acute distress *Routine HEENT Exam Head: Present normocephalic Eye: Present EOMI and PERRL ENT: Present mucous membranes moist *Routine Neck Exam Neck: Present supple; Absent lymphadenopathy *Routine Respiratory Exam Respiratory: Present CTA bilaterally *Routine Cardiovascular Exam Cardiovascular: Present RRR *Routine Abdominal Exam Abdominal: Present soft and normoactive bowel sounds; Absent tenderness *Routine Rectal Exam Rectal:: deferred *Routine Genitalia Exam Genitalia:: deferred *Routine Extremities Exam Extremities: Absent cyanosis, clubbing or edema *Routine Skin Exam Skin: Present warm; Absent rash *Routine Neurological Exam Neurological: Present alert and oriented X3 Detailed Exam Comments: Her cervix is 2 cm dilated, soft and 50% effaced. The station is -3. No active bleeding at this point. Meds Home Medications and Allergies Home Medications ?Medication ?Instructions ?Recorded ?Confirmed ?Type vits no.126-ferrous fum 1 tab PO DAILY 30 days #30 tabs 12/09/24 07/24/25 Rx 28 mg iron-folic acid 800 mcg tablet (Classic ) albuterol sulfate 90 mcg/actuation 2 puff inhalation QIDP PRN 07/24/25 07/24/25 History aerosol inhaler Shortness Of Breath fluticasone propionate 115 2 puff inhalation BID 07/24/25 07/24/25 History mcg-salmeterol 21 mcg/actuation HFA inhaler (Advair HFA) New Prescriptions to Start Prescriptions: Allergies Allergy/AdvReac Type Severity Reaction Status Date / Time prednisolone AdvReac Severe Hives Verified 07/22/25 09:42 Hospital Course Hospital Course Hospital Course: She was admitted overnight and observed. She is having a few irregular contractions. The nonstress test is reactive with good [id number] variability and good accelerations. Her cervix has not changed and it remains 2 cm 50% Station -3. She has had no further episodes of bleeding or spotting. There was a minimal amount of brown discharge on the glove when I examined her. She will be discharged home to follow-up in a few days time. She will return if she has any further episodes of regular contractions, rupture of membranes or increased vaginal bleeding. She will monitor her movements. She is scheduled for repeat in 5 days time. Results Data Completed and Pending Labs on day of discharge: Labs from last 24 hours 07/24/25 02:55 Urine Color Yellow Urine Appearance Clear Urine pH 7.0 Ur Specific Berkley <= 1.005 Urine Protein Negative Urine Glucose (UA) Negative Urine Ketones Negative Urine Blood Negative Urine Nitrate Negative Urine Bilirubin Negative Urine Urobilinogen 0.2 Ur Leukocyte Esterase Negative Urine WBC Occasional Ur Squamous Epith Cells 3-5 Urine Bacteria 1+ DS: Diagnosis Discharge Diagnosis (1) False labor after 37 completed weeks of gestation: Status: Acute Code(s): O47.1 - False labor at or after 37 completed weeks of gestation (2) Obesity affecting : Status: Acute Code(s): O99.210 - Obesity complicating , unspecified trimester Qualifiers: Obesity type affecting : severe obesity due to excess calories Trimester: third trimester Qualified Code(s): O99.213 - Obesity complicating , third trimester; E66.01 - Morbid (severe) obesity due to excess calories Discharge Plan Disposition Patient Disposition: Home, Self-Care Follow up Plan Follow up with: Chandana Zheng MD [Staff Physician, TESTING COORDINATOR] - 07/27/25 10:30 am Prescriptions/Medication Reconciliation: Continued Classic 28 mg iron- 800 mcg tablet 1 tab PO DAILY 30 Days Qty: 30 3RF albuterol sulfate 90 mcg/actuation HFA aerosol inhaler 2 puff inhalation QIDP PRN (Reason: Shortness Of Breath) Rx Instructions: INHALE 2 PUFFS BY MOUTH FOUR TIMES DAILY NEEDED FOR SHORTNESS OF BREATH OR WHEEZING fluticasone propion-salmeterol [Advair HFA] 115-21 mcg/actuation HFA aerosol inhaler 2 puff inhalation BID Rx Instructions: INHALE 2 PUFFS BY MOUTH TWICE DAILY Problem Reconciliation Problems Reviewed?: Yes Patient Discharge Instructions ACTIVITY: Limited activity DIET: continue same diet Additional Instructions: Rest, Drink plenty of fluids. Patient Instructions: How to Do Kick Counts, Antepartum Care Print Language: Vincentian Providers Primary Care Provider: Michell Batres Admdanie Provider: Brionna Xiong Attending Provider: Brionna Xiong
== END 2025-07-24 11:07 | disposition home or self-care (01) ==
LOC: OBOUT 04:02 → OB 04:02
PROVIDERS: Admitting Provider Obstetrics & Gynecology; PCP Nurse Practitioner Family; Visit Provider Obstetrics & Gynecology
DX: O47.1 False labor at or after 37 completed weeks of gestation (principal); O99.213 Obesity complicating pregnancy, third trimester; O99.513 Diseases of the respiratory system complicating pregnancy, third trimester; E66.01 Morbid (severe) obesity due to excess calories; J45.909 Unspecified asthma, uncomplicated; Z3A.38 38 weeks gestation of pregnancy; Z88.8 Allergy status to other drugs, medicaments and biological substances; Z79.51 Long term (current) use of inhaled steroids; Z79.899 Other long term (current) drug therapy
CPT/HCPCS: 59025; 81001; 96360; 96361; 99212; G0378; G0463; J7120

== ENCOUNTER 2025-07-26 22:42 | Inpatient (IN) | payer OTHER, SELFPAY ==
--- OUTSIDE RECORDS SUMMARY | 2017-04-09 06:19 | XMS_ITS | Continuity of Care Document ---
Author Organization [facility] Address [address] [place] [address] Phone Care Team Providers Care Critical Care Physician Name Role Phone Mickey Huynh MD Unavailable [...] Diagnoses Date Provider Providers Copied on Encounter [facility], [address], [place], [place], [address], tel:[phone] Michael Gomez import specialist No Information 7 Lino Arevalo. [address], [place], [place], [address] , [place]. [phone] OFFICE VISIT/NEW LEVEL II [facility], [address], [place], [place], [address], tel:[phone] Michael Gomez import specialist check (chief complaint) Removal of nereyda 7 Lino Arevalo. [address], [place], [place], [address] , [place]. tel:[phone] [facility], [address], [place], [place], [address], [place] tel:[phone] [place] import specialist Practice Old No Information 7 Elida Marmolejo. [address], [place], [place], [address] , [place]. tel: [phone] INIT HOSP.CARE/LOW [facility], [address], [place], [place], [address], [place] tel:[phone] Jason import specialist No Information 7 Lino Arevalo. [address], [place], [place], [address] , [place]. tel: [phone] Family History Family Member Type Diagnosis Age At Onset Paternal grandmother Problem (finding) Thyroid disease Paternal grandmother Problem (finding) hyperchol esterolemia in first degree relative Paternal grandmother Problem (finding) Alive and well Paternal grandmother Problem (finding) Paternal grandmother Problem (finding) hypertension Payers Payer name Insurance type Covered republican ID Authoriza tion(s) [employer] [facility] Medicaid CI [id number] [facility] Medical [id number] Social History Type Description Quantity Date Captured [...]
--- OUTSIDE RECORDS SUMMARY | 2025-07-26 21:35 | XMS_ITS | Clinical Summary ---
Author Organization Healthcare Address [address] [place] [address] Care Team Providers Care Orderlies Teacher Name Role Phone MedardoMichell Kenyatta JOSEPH Primary Care Provider [phone] Allergies Active Allergy Reactions Criticality Noted Date [...] 19+ 3-dose series) 2020 [facility]-Pap Smear 2022 [id number] Vaccine (1 - season) 2024 [facility]-Influenza Vaccine [...] age to complete this topic Insurance AETNA [facility] MEDICAID Care Teams Orderlies Teacher Relationship Specialty Start Date End Date Michell Batres APRN [address] [place] [address] PCP - General 09/29/24
--- OUTSIDE RECORDS SUMMARY | 2025-07-26 21:35 | XMS_ITS | Clinical Summary ---
Author Organization [facility] Address [address], [address] [place] [address] Care Team Providers Care Charger Operator Helper Name Role Phone Antonette Mcgee MD Primary Care Provider Allergies Active Allergy Reactions [...] No 01/02/2024 Housing Stability Vital Sign Answer Tsu e Recorded Unable to Pay for Housing in the Last Year Not o n file 01/02/2024 Number of Places Lived in the Last Year Not on f ile 01/02/2024 In the last 12 months, was t here a time when you did not have a steady place to sleep or slept in a retirement (including now)? No 01/02/2024 Food Insecurity Answer [...] Relevant to Health Maintenance Insurance MEDICAID MEDICAID [facility] MEDICAID Advance Directives Documents on File Type Date Recorded Patient Donor Relations Associate Expl anation ACP-Advance Directive 05/03/2016 4:02 PM * Full Code (Latest Code Status on File) Date Activated Date Inactivated Comments 02/25/2017 11:58 AM 02/27/2017 4:13 PM * Full Code Date Activated Date Inactivated Comments 02/25/2017 5:20 AM 02/25/2017 11:58 AM Care Teams Charger Operator Helper Relationship Specialty Start Date End Date Antonette Mcgee MD [address] [facility] [address] [place] [address] PCP - General Internal Medicine 09/15/22
[2025-07-26 21:37] VITALS: BMI 44.2
[2025-07-26 21:46] VITALS: BP 133/85; PULSE 111; RESP 18; TEMP 37.1; O2SAT 97; BMI 44.2
[2025-07-26 21:55] LABS: Fetal Membrane Rupture (Rapid) Positive (Negative)
[2025-07-26] MEDS: ONDANSETRON 4MG/2ML VIAL 4 MG IV (22:42)
[2025-07-26] MEDS: LACTATED RINGERS 1000ML 1,000 ML 250 ML IV (22:42)
[2025-07-27] MEDS: BUTORPHANOL TARTRATE 1 MG/ML VIAL IV ×2 (00:32→02:00)
[2025-07-27 01:00] LABS: Hematocrit 30.8 % (37.0-47.0); Hemoglobin 10.3 g/dL (12.2-16.2); Immature Granulocytes % 1.9 %; Mean Corpuscular HGB Conc 33.4 g/dL (31.8-35.4); Mean Corpuscular Hemoglobin 28.3 pg (27.0-31.2); Mean Corpuscular Volume 84.6 fl (81-99); Nucleated Red Blood Cells % 0.4 %; Platelet Count 238 K/mm3 (142-424); Red Blood Count 3.64 M/mm3 (4.20-5.40); Red Cell Distribution Width-SD 53.2 fL; White Blood Count 13.5 K/mm3 (4.8-10.8)
[2025-07-27] MEDS: DEXTROSE 5%-LACTATED RINGERS 1,000 ML 125 ML IV (01:28)
[2025-07-27] MEDS: AMPICILLIN SODIUM 1 GM in 0.9 % SODIUM CHLORIDE 50 ML IV (01:29)
--- NOTE | 2025-07-27 02:35 | P.HP_ITS ---
History of Present Illness *Admission Date: 07/26/25 *Reason for visit:: Ruptured membranes, spontaneous labor, *History of present illness: She is a 24-year-old 4 para 2 aborta 1 who is 39+2 weeks gestational age. She has had 2 previous section and was scheduled for a repeat section in 48 hours time. She ruptured her membranes yesterday evening around 9:30 PM and came into labor and delivery. She was initially not doing anything and she had eaten a couple of hours later so we elected to just observe her until morning. A was scheduled. She then began to have contractions every 1 to 2 minutes that were quite painful. As result of that we have elected perform a this morning. O Rh- blood Rubella immune Group B streptococcus negative. [facility] Disclaimer: The information contained in this section may have been updated after the patient was seen, as this information can be updated by other users. Medical History Abdominal pain during UTI (urinary tract infection) Acute vulvovaginitis Left flank pain Asymptomatic bacteriuria during Influenza A Nausea & vomiting Gastritis Irregular menses Screening for lipid disorders Screening for HIV (human immunodeficiency virus) Encounter for hepatitis C screening test for low risk patient Encounter for screening for diabetes mellitus Encounter for screening examination for sexually transmitted disease Fatigue Anemia affecting Obesity affecting History of anxiety History of asthma Surgical History H/O section H/O clubfoot correction Family History Other Family history of COPD (chronic obstructive pulmonary disease) Social History Smoking Status: Never smoker alcohol intake: never current occupational status: unemployed Travel in the last 8 weeks?: None Have you lived/traveled outside [place] in past 30 days?: No Contact w/someone who lives/traveled outside US past 30 days?: No Exposure to someone with infectious disease in past 14 days?: No Do you have a fever (greater than 100.4 F or 38 C)?: No Have you tested positive for COVID-19?: No Exposed to someone with COVID-19 in past 14 days?: No Do you have a sore throat?: No Do you have a cough?: No Do you have any weakness?: No Do you have any diarrhea?: No Are you experiencing any unusual bleeding?: No Do you have any muscle aches/pain?: No Do you have any abdominal pain?: No Are you experiencing loss of taste or smell?: No Other Medical History Have you received the Flu Vaccine for this season: No Have you received the Pneumonia Vaccine: No Review of Systems Review of Systems Review of systems:: pertinent systems reviewed and negative unless documented below Meds Home Medications and Allergies Home Medications ?Medication ?Instructions ?Recorded ?Confirmed ?Type vits no.126-ferrous fum 1 tab PO DAILY 30 day s #30 tabs 12/09/24 07/24/25 Rx 28 mg iron-folic acid 800 mcg tablet (Classic ) albuterol sulfate 90 mcg/actuation 2 puff inhalation Q IDP PRN 07/24/25 07/24/25 History aerosol inhaler Shortness Of Breath fluticasone propionate 115 2 puff inhalation BID 07/2407/24/25 History mcg-salmeterol 21 mcg/actuation HFA inhaler (Advair HFA) New Prescriptions to Start Prescriptions: Allergies Allergy/AdvReac Type Severity Reaction Status Date / Time prednisolone AdvReac Severe Hives Verified 07/22/25 09:42 Exam Data for Last 24 hours Vital signs and Labs for Last 24 Hours: Temp Pulse Resp BP Pulse Ox O2 Del Method 98.7 F 111 H 18 133/85 97 Room Air 07/26/25 21:46 07/26/25 21:46 07/26/25 21:46 07/26/25 21:46 07/26/25 21:46 07/26/25 21:46 Laboratory Results - last 24 hr 07/26/25 21:41: Membrane Rupture Positive A 07/26/25 23:08: WBC 13.5 H, RBC 3.64 L, Hgb 10.3 L, Hct 30.8 L, MCV 84.6, MCH 28.3, MCHC 33.4, RDW 17.5, Plt Count 238, MPV 11.5 H, Neut % (Auto) 77.6, Lymph % (Auto) 15.2, [place] % (Auto) 4.4, Eos % (Auto) 0.6, Baso % (Auto) 0.3, Neut # (Auto) 10.5 H, Lymph # (Auto) 2.1, [place] # (Auto) 0.6, Eos # (Auto) 0.1, Baso # (Auto) 0.0, Blood Type O Negative, Antibody Screen Negative I & O for Last 24 hours: Intake & Output 07/24/25 07/25/25 07/26/25 07/27/25 11:59 11:59 11:59 11:59 Intake Total 138.333 / 138.333 Balance 138.333 / 138.333 Weight 250 lb Constitutional Constitutional: no acute distress *Routine HEENT Exam Head: Present normocephalic Eye: Present EOMI and PERRL ENT: Present mucous membranes moist *Routine Neck Exam Neck: Present supple; Absent lymphadenopathy *Routine Respiratory Exam Respiratory: Present CTA bilaterally *Routine Cardiovascular Exam Cardiovascular: Present RRR *Routine Abdominal Exam Abdominal: Present soft and normoactive bowel sounds; Absent tenderness *Routine Rectal Exam Rectal:: deferred *Routine Genitalia Exam Genitalia:: deferred *Routine Extremities Exam Extremities: Absent cyanosis, clubbing or edema *Routine Skin Exam Skin: Present warm; Absent rash *Routine Neurological Exam Neurological: Present alert and oriented X3 Assessment and Plan *Assessment and plan (1) Obesity affecting : Status: Acute Qualifiers: Trimester: third trimester Obesity type affecting : severe obesity due to excess calories Qualified Code(s): O99.213 - Obesity complicating , third trimester; E66.01 - Morbid (severe) obesity due to excess calories Category: Medical Code(s): O99.210 - Obesity complicating , unspecified trimester (2) Morbid obesity with body mass index (BMI) of 40.0 to 49.9: Status: Acute Category: Medical Code(s): E66.01 - Morbid (severe) obesity due to excess calories (3) Delayed delivery after spontaneous rupture of membranes: Status: Acute Category: Medical Code(s): O42.90 - Premature rupture of membranes, unspecified as to length of time between rupture and onset of labor, unspecified weeks of gestation (4) History of section, low transverse: Status: Acute Category: Surgical Code(s): Z98.891 - History of uterine scar from previous surgery Plan 1. She is admitted with ruptured membranes. As result of that we are going to perform a section. She has had 2 previous sections. She had eaten 2 hours prior to her admission so we did plan to wait a few hours but she now is in active labor. It has now been over 6 hours since she has something to eat. 2. We discussed the risks of surgery that includes bleeding, infection, injuries to the bowel and bladder. We discussed the rare risk of DVT and the need for DVT prophylaxis. All questions were answered and consents were signed.
--- NOTE | 2025-07-27 04:16 | EXP.OP.NOTE ---
Date of procedure: 07/27/25 Pre-op Diagnosis:: Term , previous section, ruptured membranes, active labor, Post-op Diagnosis:: Term , previous section, ruptured brains, active labor Procedure performed:: Repeat lower segment transverse section Surgeon:: Chandana Zheng MD Outsole Beveler(s):: Areli MEDICAL REIMBURSEMENT SPECIALIST:: Tarik Brink Anesthesia: spinal Estimated blood loss (mL): 600 Clinical Note:: She is a 24-year-old 4 para 2 aborta 1 who is 39 and 2 weeks gestational age. She came in in the evening of July 26, 2025 and was found to have ruptured membranes. She was observed overnight since she had just eaten a couple of hours earlier and then began to have regular painful contractions. As result of that we elected perform a repeat lower segment transverse section Operative findings:: She delivered a liveborn female child at 3:40 AM on the morning of July 27, 2025. The baby had Apgars of 7 at 1 minute and 9 at 5 minutes. She weighed 8 pounds 8 ounces.. Operative note:: She was taken to the operating room where spinal anesthesia was found be adequate. She was prepped and draped in normal sterile fashion in the supine position. A Menezes catheter was in the bladder. A Pfannenstiel skin incision was made with knife then carried through to the underlying layer of fascia with cautery. The fascia was opened in the midline with cautery and extended laterally using Galvan scissors. Elsa clamps were applied to the superior aspect of the fascial incision which was tented up and the underlying rectus muscles dissected off using cautery. The Elsa clamps were then applied to the inferior aspect of the fascial incision which in a similar fashion was tented up and the underlying rectus muscles dissected off using cautery. The rectus muscles were then in the midline, the peritoneum identified, and entered bluntly. An Raffaele retractor was then inserted into the abdominal cavity. Bladder peritoneum was opened midline extended laterally using Metzenbaum scissors. Transverse incision was made through the uterine muscle through to the amnion. This incision was then extended superiorly and inferiorly using the fingers as traction. The amnion was entered sharply with knife. There was clear amniotic fluid. The 's head was then delivered atraumatically. This was followed by the anterior shoulder and the rest of the infant's body atraumatically. The oropharynx and nasopharynx were bulb suctioned. The infant was vigorous so we allowed the cord to continue to pulsate for approximately 1 minute. The cord was then doubly clamped and cut. The infant was then handed off to Dr. Stapleton who assigned Apgars of 7 at 1 minute and 9 at 5 minutes. We then obtained cord blood. Using gentle traction on the cord and fundal massage I was able to easily deliver the placenta intact. It had a normal three-vessel cord. The uterus was then cleared of clots and debris . The uterine incision was then closed using running 0 Vicryl suture in a locked fashion. A second layer of the same suture was used to imbricate the first layer. The bladder peritoneum was then closed using running 2-0 Vicryl suture in a locked fashion. The gutters and cul-de-sac were then cleared of clots and debris . Once again hemostasis was assured. I elected to place a large piece of Gelfoam along the uterine incision. The peritoneum was then closed with 2-0 Vicryl suture followed by reapproximation of the rectus muscle using 0 Vicryl suture. The fascia was closed using running #1 Vicryl suture. I used 2 sutures to close the fascia starting from the right side to the midline and left side to the midline. The subcutaneous tissues were then irrigated with warm water followed by closure Luke's fascia using running 2-0 Monocryl suture. The skin was closed with absorbable nereyda. I then cleaned the skin with Hibiclens. Sterile dressings were applied. Anesthesia then performed a tap block under ultrasound guidance. She tolerated the procedure well and was taken to the recovery room in excellent condition. All sponges, instrument and needle counts were correct. Estimated blood loss was approximately 600 mL.. Condition: stable Disposition: PACU Specimens:: None Complications:: None
[2025-07-27 04:30] VITALS: BP 107/56; PULSE 93; RESP 17; TEMP 36.7; O2SAT 99
--- NOTE | 2025-07-27 04:33 | P.PNANES_ITS ---
[facility] Disclaimer: The information contained in this section may have been updated after the patient was seen, as this information can be updated by other users. Medical History Abdominal pain during UTI (urinary tract infection) Acute vulvovaginitis Left flank pain Asymptomatic bacteriuria during Influenza A Nausea & vomiting Gastritis Irregular menses Screening for lipid disorders Screening for HIV (human immunodeficiency virus) Encounter for hepatitis C screening test for low risk patient Encounter for screening for diabetes mellitus Encounter for screening examination for sexually transmitted disease Fatigue Anemia affecting Obesity affecting History of anxiety History of asthma Surgical History H/O section H/O clubfoot correction Family History Other Family history of COPD (chronic obstructive pulmonary disease) Social History Smoking Status: Never smoker alcohol intake: never substance use type: denies use current occupational status: unemployed Travel in the last 8 weeks?: None [facility] Anesthesia Checklist Patient Identification Patient Identification: Verbal (Name & ) Structural Data Admitted From: Inpatient Planned Operative Procedure/s: c/section Consent for Planned Operative Procedure(s) Verified: Yes NPO Status Verified Time NPO: 20:00 Airway Assessment Mallampati Score:: Class II C-Spine Mobility Assessed: Yes TMJ Mobility Assessed: Yes Dentition: Good Dentition Neurological Assessment Level of Consciousness: Awake, Alert and Appropriate Anesthesia Plan Anesthesia Risk discussed: Yes Anesthesia Plan: Verified ASA Class: II Anesthesia Type: Spinal
--- NOTE | 2025-07-27 04:35 | EXP.ANES.I ---
[facility] Anesthesia Record Part I Anesthesia Record I Intake, IV Amount: 1,800 Hydration: Adequate Estimated blood loss (mL): 600 Urine output (mL): 350 Blood Pressure: 107/56 SaO2: 96 Pulse Rate: 93 Airway Patency: Patent Respiratory Rate: 12 Temperature: 98 F Patient is:: Awake and Stable Stable to PACU at:: 04:30
[2025-07-27 04:39] VITALS: BP 107/56; PULSE 93; RESP 12; TEMP 36.6; O2SAT 96
[2025-07-27 04:40] VITALS: BP 109/57; PULSE 84; RESP 17; O2SAT 99
[2025-07-27 04:50] VITALS: BP 115/59; PULSE 85; RESP 17; O2SAT 98
[2025-07-27 05:00] VITALS: BP 106/55; PULSE 70; RESP 18; TEMP 36.4; O2SAT 99
[2025-07-27] MEDS: OXYTOCIN/RINGERS LACTATE 30 UNITS/500 ML BAG 40 UNITS IV (05:21)
[2025-07-27] MEDS: SIMETHICONE 80MG CHEWABLE TABLET 160 MG PO (05:22)
[2025-07-27] MEDS: ACETAMINOPHEN 500MG TAB 1000 MG PO ×3 (05:23→18:27)
[2025-07-27] MEDS: OXYCODONE 5MG IMMEDIATE RELEASE TABLET 10 MG PO ×3 (05:28→18:27)
[2025-07-27] MEDS: IBUPROFEN 400 MG TABLET 800 MG PO ×3 (05:29→21:58)
[2025-07-27 06:59] LABS: Microscopic, Urine URINE MICROSCOPIC (MICROSCOPIC)
[2025-07-27 07:02] LABS: Bilirubin,Urine Negative (Negative); Color,Urine YELLOW (Yellow); Glucose,Urine (UA) Negative (Negative); Ketones,Urine Negative (Negative); Leukocyte Esterase,Urine Negative (Negative); PH,Urine 6.0 (5.0-8.5); Protein,Urine Negative (Negative); Specific Gravity, Urine 1.010 (1.005-1.030); Urobilinogen,Urine 0.2 EU/dl (0.2)
[2025-07-27 07:36] LABS: Squamous Epithelial Cell,Urine Occasional #/hpf (0-5)
[2025-07-27 09:58] LABS: RPR W/RFX Titers Nonreactive (Nonreactive)
[2025-07-27] MEDS: ONDANSETRON 4MG/2ML VIAL 4 MG IV (12:41)
[2025-07-27] MEDS: SENNA 8.6MG TABLET 8.6 MG PO (18:27)
[2025-07-27 20:19] VITALS: BP 126/76; PULSE 86; RESP 17; TEMP 36.5; O2SAT 100
[2025-07-28] MEDS: ACETAMINOPHEN 500MG TAB 1000 MG PO ×4 (00:05→20:29)
[2025-07-28 05:15] VITALS: BP 122/81; PULSE 93; RESP 18; TEMP 36.7; O2SAT 100
[2025-07-28] MEDS: IBUPROFEN 400 MG TABLET 800 MG PO ×3 (05:17→20:27)
[2025-07-28 06:15] LABS: Hematocrit 29.9 % (37.0-47.0); Hemoglobin 9.5 g/dL (12.2-16.2); Immature Granulocytes % 1.5 %; Mean Corpuscular HGB Conc 31.8 g/dL (31.8-35.4); Mean Corpuscular Hemoglobin 27.9 pg (27.0-31.2); Mean Corpuscular Volume 87.9 fl (81-99); Nucleated Red Blood Cells % 0 %; Platelet Count 191 K/mm3 (142-424); Red Blood Count 3.40 M/mm3 (4.20-5.40); Red Cell Distribution Width-SD 56.3 fL; White Blood Count 14.0 K/mm3 (4.8-10.8)
[2025-07-28 08:10] VITALS: BP 127/60; PULSE 101; RESP 17; TEMP 36.8; O2SAT 97
[2025-07-28] MEDS: IRON SUCROSE COMPLEX 200 MG in 0.9 % SODIUM CHLORIDE 100 ML 220 MG IV (08:45)
[2025-07-28] MEDS: VITAMIN B-12 1,000 MCG 1ML VIAL 1000 MCG IM (08:45)
[2025-07-28] MEDS: OXYCODONE 7.5MG W/APAP 325MG TABLET 1 EACH PO (10:23)
--- NOTE | 2025-07-28 12:31 | EXP.PN ---
Subjective *Date: 07/28/25 *Time: 12:31 Interval history: Vivian is a 24-year-old day #1 from a repeat low-transverse delivery. She presented to labor and delivery with rupture of membranes. Routine delivery and course thus far. She is doing well and sitting up in the bed this morning she plans to take a shower later -Reports pain is well-controlled -Reports she is tolerating p.o. without nausea or vomiting. -Reports her lochia is scant. -Undecided on contraception -She is breast and bottle-feeding her female -Ambulating, voiding difficulty or dysuria. Denies chest pain shortness of breath or pain in her legs. No further complaints at this time. Exam Data for Last 24 hours Vital signs and Labs for Last 24 Hours: Temp Pulse Resp BP Pulse Ox O2 Del Method 98.3 F 101 H 17 127/60 97 Room Air 07/28/25 08:10 07/28/25 08:10 07/28/25 08:10 07/28/25 08:10 07/28/25 08:10 07/28/25 08:10 Laboratory Results - last 24 hr 07/28/25 05:57: WBC 14.0 H, RBC 3.40 L, Hgb 9.5 L, Hct 29.9 L, MCV 87.9, MCH 27.9, MCHC 31.8, RDW 18.0 H, Plt Count 191, MPV 11.5 H, Neut % (Auto) 79.3, Lymph % (Auto) 13.2, [place] % (Auto) 4.9, Eos % (Auto) 0.8, Baso % (Auto) 0.3, Neut # (Auto) 11.1 H, Lymph # (Auto) 1.9, [place] # (Auto) 0.7, Eos # (Auto) 0.1, Baso # (Auto) 0.0 I & O for Last 24 hours: Intake & Output 07/25/25 07/26/25 07/27/25 07/28/25 23:59 23:59 23:59 23:59 Intake Total 138.333 / 341.229 6199.667 / 4111.667 100 / 100 Output Total 1600 / 1600 Balance 138.333 / 261.862 5797.667 / 2511.667 100 / 100 Weight 250 lb Narrative: General: patient is alert oriented in no acute distress and responds appropriately to questions. Appears to be in minimal pain. Sitting up in the chair and doing well HEENT: NCAT, EOMI, moist mucous membranes, neck supple with full ROM Cardiovascular: RRR +S1/S2, no murmurs or rubs Pulmonary: Clear to auscultation bilaterally, nonlabored breathing, symmetric chest rise Abdominal: Fundus below the umbilicus, firm, and tenderness appropriate for the period. Extremities: trace edema, no tenderness or cyanosis noted Skin: Normal turgor, intact, warm. Negative for erythema, pallor, petechia, or lesions. Dressing covering incision Neurologic: Negative for sensory or motor deficit Psychiatric: Normal affect, normal thought process, good judgment and insight, no depression or anxious mood appreciated. Assessment and Plan *Assessment and plan (1) History of section, low transverse: Status: Acute Category: Surgical Code(s): Z98.891 - History of uterine scar from previous surgery (2) Delayed delivery after spontaneous rupture of membranes: Status: Acute Category: Medical Code(s): O42.90 - Premature rupture of membranes, unspecified as to length of time between rupture and onset of labor, unspecified weeks of gestation (3) Anemia affecting : Status: Acute Category: Medical Code(s): O99.019 - Anemia complicating , unspecified trimester (4) Obesity affecting : Status: Acute Qualifiers: Trimester: third trimester Obesity type affecting : severe obesity due to excess calories Qualified Code(s): O99.213 - Obesity complicating , third trimester; E66.01 - Morbid (severe) obesity due to excess calories Category: Medical Code(s): O99.210 - Obesity complicating , unspecified trimester (5) Morbid obesity with body mass index (BMI) of 40.0 to 49.9: Status: Acute Category: Medical Code(s): E66.01 - Morbid (severe) obesity due to excess calories Plan Stable. POD#1 s/p RLTCS -Doing well. VSS. Serial lochia and fundal checks. -Continue with perineal ice packs for discomfort -Hemoglobin: 10.3--> 9.5. Patient will be given IV iron infusion as well as B12 given low values that were detected antenatally -asymptomatic anemia noted. Vitals stable. Continue monitoring. DC with p.o. Fe -O-/antibody negative -Breast and bottle feeding, female infant -Contraception: undecided -Follow-up 2 weeks for routine visit -Dispo: home in 1-3 days pending mother/infant status
[2025-07-28] MEDS: CYCLOBENZAPRINE 10MG TABLET 10 MG PO (16:21)
[2025-07-28 20:15] VITALS: BP 121/62; PULSE 97; RESP 18; TEMP 36.5; O2SAT 99
[2025-07-29] MEDS: ACETAMINOPHEN 500MG TAB 1000 MG PO ×2 (01:40→13:05)
[2025-07-29 04:32] VITALS: BP 115/78; PULSE 102; RESP 18; TEMP 36.4; O2SAT 98
[2025-07-29] MEDS: IBUPROFEN 400 MG TABLET 800 MG PO ×2 (04:35→13:06)
[2025-07-29 08:41] VITALS: BP 112/70; PULSE 92; RESP 18; TEMP 36.7; O2SAT 99
--- NOTE | 2025-07-29 09:09 | P.DS_ITS ---
General Admission date:: 07/26/25 Discharge date: 07/29/25 HPI HPI HPI: She is a 24-year-old 4 para 2 aborta 1 who is 39+2 weeks gestational age. She has had 2 previous section and was scheduled for a repeat section in 48 hours time. She ruptured her membranes yesterday evening around 9:30 PM and came into labor and delivery. She was initially not doing anything and she had eaten a couple of hours later so we elected to just observe her until morning. A was scheduled. She then began to have contractions every 1 to 2 minutes that were quite painful. As result of that we have elected perform a this morning. O Rh- blood Rubella immune Group B streptococcus negative. Hospital Course Hospital Course Hospital Course: Vivian Chao 24-year-old -0-1-3 who delivered a live viable female infant on 07/27/2025 at 03:40 AM. Infants name: Cheryl Porternum. Apgars were 7 and 9 at 1 and 5 minutes respectively. Infant weighed 8 pounds and 8 ounces. She is breast and bottlefeeding. She is complaining of a severe headache that she rates 8 out of 10 when she stands up and anesthesia will evaluate her for a spinal headache prior to discharge She has done well and has remained afebrile with her at her hospitalization. She is eating and drinking and ambulating. Her lochia is normal. She has O Rh- blood, she is rubella immune and was group B streptococcus negative. She will be discharged home to follow-up with Dr. Wilkins in 2 weeks time. She will continue with her vitamins and iron. She has a prescription for Percocet and will continue these at home. She will take ibuprofen as well. She was given the usual instructions with respect to limiting her activity, driving and sexual activity. She was given instructions with respect to wound care. Her condition on discharge is stable and improved. Exam Data for Last 24 hours Vital signs and Labs for Last 24 Hours: Temp Pulse Resp BP Pulse Ox O2 Del Method 97.6 F 102 H 18 115/78 98 Room Air 07/29/25 04:32 07/29/25 04:32 07/29/25 04:32 07/29/25 04:32 07/29/25 04:32 07/29/25 04:32 I & O for Last 24 hours: Intake & Output 07/26/25 07/27/25 07/28/25 07/29/25 23:59 23:59 23:59 23:59 Intake Total 138.333 / 452.278 3373.667 / 4111.667 155 / 155 Output Total 1600 / 1600 Balance 138.333 / 044.265 6380.667 / 2511.667 155 / 155 Weight 250 lb Narrative: General: patient is alert oriented in no acute distress and responds appropriately to questions. Appears to be in minimal pain. HEENT: NCAT, EOMI, moist mucous membranes, neck supple with full ROM Cardiovascular: RRR +S1/S2, no murmurs or rubs Pulmonary: Clear to auscultation bilaterally, nonlabored breathing, symmetric chest rise Abdominal: Fundus below the umbilicus, firm, and tenderness appropriate for the period. Extremities: trace edema, no tenderness or cyanosis noted Skin: Normal turgor, intact, warm. Negative for erythema, pallor, petechia, or lesions. Incision is healing well. there is an area of irritation at the left apex with erythema and ecchymosis Neurologic: Negative for sensory or motor deficit Psychiatric: Normal affect, normal thought process, good judgment and insight, no depression or anxious mood appreciated. DS: Diagnosis Discharge Diagnosis (1) History of section, low transverse: Status: Acute Code(s): Z98.891 - History of uterine scar from previous surgery (2) Delayed delivery after spontaneous rupture of membranes: Status: Acute Code(s): O42.90 - Premature rupture of membranes, unspecified as to length of time between rupture and onset of labor, unspecified weeks of gestation (3) Anemia affecting : Status: Acute Code(s): O99.019 - Anemia complicating , unspecified trimester (4) Obesity affecting : Status: Acute Code(s): O99.210 - Obesity complicating , unspecified trimester Qualifiers: Trimester: third trimester Obesity type affecting : severe obesity due to excess calories Qualified Code(s): O99.213 - Obesity complicating , third trimester; E66.01 - Morbid (severe) obesity due to excess calories (5) Morbid obesity with body mass index (BMI) of 40.0 to 49.9: Status: Acute Code(s): E66.01 - Morbid (severe) obesity due to excess calories Meds Home Medications and Allergies Home Medications ?Medication ?Instructions ?Recorded ?Confirmed ?Type vits no.126-ferrous fum 1 tab PO DAILY 30 day s #30 tabs 12/09/24 07/27/25 Rx 28 mg iron-folic acid 800 mcg tablet (Classic ) albuterol sulfate 90 mcg/actuation 2 puff inhalation Q IDP PRN 07/24/25 07/27/25 History aerosol inhaler Shortness Of Breath fluticasone propionate 115 2 puff inhalation BID 07/2407/27/25 History mcg-salmeterol 21 mcg/actuation HFA inhaler (Advair HFA) acetaminophen 500 mg tablet 500 mg PO Q6H PRN fever or pain 07/29/25 Rx #30 tabs ibuprofen 800 mg tablet 800 mg PO Q8H PRN pain #60 t abs 07/29/25 Rx oxycodone 5 mg tablet 5 mg PO Q8H PRN pain #20 tab s 07/29/25 Rx sennosides 8.6 mg tablet (Senna 8.6 mg PO BIDP PRN Con stipation 07/29/25 Rx Lax) #60 tabs simethicone 125 mg tablet 125 mg PO DAILY PRN abdomina l 07/29/25 Rx distention #60 tabs New Prescriptions to Start Prescriptions: acetaminophen Yaima Wilkins ibuprofen Yaima Wilkins oxycodone Yaima Wilkins sennosides [Senna Lax] Yaima Wilkins simethicone Yaima Wilkins Allergies Allergy/AdvReac Type Severity Reaction Status Date / Time prednisolone AdvReac Severe Hives Verified 07/22/25 09:42 Discharge Plan Disposition Patient Disposition: Home, Self-Care Discharge Order Discharge Orders: Discharge Order (Routine); Ordered 07/29/25 Ordered By: Yaima Wilkins Follow up Plan Follow up with: Yaima Wilkins DO [Staff Physician, [employer]] - Enter time for follow up Prescriptions/Medication Reconciliation: New sennosides [Senna Lax] 8.6 mg Tablet 8.6 mg PO BIDP PRN (Reason: Constipation) Qty: 60 2RF ibuprofen 800 mg tablet 800 mg PO Q8H PRN (Reason: pain) Qty: 60 2RF acetaminophen 500 mg tablet 500 mg PO Q6H PRN (Reason: fever or pain) Qty: 30 3RF simethicone 125 mg tablet 125 mg PO DAILY PRN (Reason: abdominal distention) Qty: 60 2RF oxycodone 5 mg tablet 5 mg PO Q8H PRN (Reason: pain) Qty: 20 0RF Continued Classic 28 mg iron- 800 mcg tablet 1 tab PO DAILY 30 Days Qty: 30 3RF albuterol sulfate 90 mcg/actuation HFA aerosol inhaler 2 puff inhalation QIDP PRN (Reason: Shortness Of Breath) Rx Instructions: INHALE 2 PUFFS BY MOUTH FOUR TIMES DAILY NEEDED FOR SHORTNESS OF BREATH OR WHEEZING fluticasone propion-salmeterol [Advair HFA] 115-21 mcg/actuation HFA aerosol inhaler 2 puff inhalation BID Rx Instructions: INHALE 2 PUFFS BY MOUTH TWICE DAILY Problem Reconciliation Problems Reviewed?: Yes Patient Discharge Instructions ACTIVITY: Continue current activity DIET: regular diet Additional Instructions: Congratulations on the delivery of your sweet baby girl. It is my privilege to be your doctor. Discharge: 1. Take 800 mg Ibuprofen every 8 hours as needed for pain. You can also take 500-1000mg of Tylenol in between doses, every 6-8 hours. Use prescription pain medicine for pain you feel in between 8 hour interval. -No driving while taking narcotic pain medications. In order to drive you should be able to slam on the brakes without significant abdominal pain. 2. Wean from prescription pain medicine first. Do not drive while taking it. 3. Prescription pain medicine can make you constipated. Colace can be taken 1-2 times per day as you need. Make sure to drink at least 8 cups of water per day. 4. Iron supplements can make you constipated. Colace can be taken 1-2 times per day as you need. You can take iron tablets every other day if constipation is too bad. 5. Nothing in the vagina for 6 weeks - no intercourse, douching, tampons. No tub baths or swimming pools 6. Do not lift greater than 15 pounds for 6 weeks, this is the equivalent of 2 gallons of milk. 7. Reasons to return to L&D or call On-Call doctor - fever (greater than 100.4) - heavy vaginal bleeding (soaking through 1 pad in less than 2 hours or passing clots that are egg sized) - vaginal discharge (malodorous and/or purulent) - bleeding or discharge from her incision - severe headaches, leg tenderness/edema, or any other symptoms that warrant immediate medical attention. 8. depression/blues - Normal to feel anxious/overwhelmed for first 2 weeks - Talk to your doctor if: anxiety lasts over 2 weeks, trouble bonding with baby, withdrawing from other family members, thoughts of harming yourself or others Blood pressure and preeclampsia instructions - Please call if greater than 2 values are higher than: 150 systolic (the top number) or 100 diastolic (the bottom number). - Please go to the emergency room or labor and delivery triage if any value is higher than: 160 systolic (the top number) or 110 diastolic (the bottom number). - Please call if unrelenting headache (does not go away with rest or Tylenol or ibuprofen), changes in vision (spots, floaters, flashes of light), chest pain, shortness of breath, or right upper quadrant (liver) abdominal pain. Yaima Wilkins DO [facility] [phone] *Nothing in the Vagina for 6 weeks* *No strenuous activity* *No heavy lifting* *No tub baths until okay's by * Print Language: Kinyarwanda Providers Primary Care Provider: Michell Batres Admdanie Provider: Chandana Zheng Attending Provider: Chandana Zheng
--- NOTE | 2025-07-29 10:23 | EXP.PN ---
Subjective *Date: 07/29/25 *Time: 10:00 Exam Data for Last 24 hours Vital signs and Labs for Last 24 Hours: Temp Pulse Resp BP Pulse Ox O2 Del Method 98.1 F 92 H 18 112/70 99 Room Air 07/29/25 08:41 07/29/25 08:41 07/29/25 08:41 07/29/25 08:41 07/29/25 08:41 07/29/25 08:41 I & O for Last 24 hours: Intake & Output 07/26/25 07/27/25 07/28/25 07/29/25 23:59 23:59 23:59 23:59 Intake Total 138.333 / 163.328 0095.667 / 4111.667 155 / 155 Output Total 1600 / 1600 Balance 138.333 / 602.902 7304.667 / 2511.667 155 / 155 Weight 113.398 kg Assessment and Plan *Assessment and plan (1) Headache after spinal puncture: Status: Acute Category: Medical Code(s): G97.1 - Other reaction to spinal and lumbar puncture Plan Called to OB 278 to discuss possible post dural puncture headache (PDPH). Patient reports symptoms of headache 9 out of 10 which is relieved slightly when lying down, however upon lying down her neck hurts more then when sitting up. Reports slight dizziness when walking which is relieved by sitting. Educated patient on signs/symptoms of PDPH and instructed her to drink more fluids and caffeinated beverages and bedrest when returning home. Also discussed performing an epidural blood patch and the benefits and risks associated with that. Patient wishes to hold off on that procedure for now. Will call OB or return to ER if headache/symptoms persist or worsen.
== END 2025-07-29 14:22 | disposition home or self-care (01) | DRG 788 ==
LOC: OBOUT 22:44 → OB 22:44
PROVIDERS: Admitting Provider Nurse Practitioner Obstetrics & Gynecology; PCP Nurse Practitioner Family; Visit Provider Nurse Practitioner Obstetrics & Gynecology
PROC: 10D00Z1 Extraction of Products of Conception, Low, Open Approach (ICD-10-PCS; CPT 59514; principal; 2025-07-27 03:30)
DX: O42.02 Full-term premature rupture of membranes, onset of labor within 24 hours of rupture (principal); Z37.0 Single live birth; O34.211 Maternal care for low transverse scar from previous cesarean delivery; Z3A.39 39 weeks gestation of pregnancy; O99.214 Obesity complicating childbirth; E66.01 Morbid (severe) obesity due to excess calories; O26.893 Other specified pregnancy related conditions, third trimester; Z67.41 Type O blood, Rh negative; O90.81 Anemia of the puerperium; O89.4 Spinal and epidural anesthesia-induced headache during the puerperium; Z88.8 Allergy status to other drugs, medicaments and biological substances; Z79.899 Other long term (current) drug therapy; Z23 Encounter for immunization
CPT/HCPCS: 51702; 59025; 81001; 84112; 85025; 86592; 86850; 94761; 96360; 96374; 99212; 99231; G0463; J0290; J0595; J0665; J1756; J2250; J2405; J2590; J3420; J7120; J7121

== ENCOUNTER 2025-07-29 20:16 | Emergency (ER) | payer OTHER, SELFPAY ==
--- OUTSIDE RECORDS SUMMARY | 2017-04-09 06:19 | XMS_ITS | Continuity of Care Document ---
Author Organization [facility] Address [address] [place] [address] Phone Care Team Providers Care Sonographer Name Role Phone Mickey Huynh MD Unavailable [...] Date Provider Providers Copied on Encounter [facility], [address], [place], [place], [address], tel:[phone] Michael Gomez business control manager No Information 7 Lino Arevalo. [address], [place], [place], [address] , [place]. [phone] OFFICE VISIT/NEW LEVEL II [facility], [address], [place], [place], [address], tel:[phone] Michael Gomez business control manager check (chief complaint) Removal of nereyda 7 Lino Arevalo. [address], [place], [place], [address] , [place]. tel:[phone] [facility] [place], [address], [place], [place], [address], [place] tel:[phone] [place] business control manager Practice Old No Information 7 Elida Marmolejo. [address], [place], [place], [address] , [place]. tel: [phone] INIT HOSP.CARE/LOW [facility], [address], [place], [place], [address], [place] tel:[phone] [place] business control manager No Information 7 Lino Arevalo. [address], [place], [place], [address] , [place]. tel: [phone] Family History Family Member Type Diagnosis Age At Onset Paternal grandmother Problem (finding) Thyroid disease Paternal grandmother Problem (finding) hyperchol esterolemia in first degree relative Paternal grandmother Problem (finding) Alive and well Paternal grandmother Problem (finding) Paternal grandmother Problem (finding) hypertension Payers Payer name Insurance type Covered republican ID Authoriza tion(s) [employer] [facility] Medicaid CI [id number] [facility] Medical [id number] Social History Type Description Quantity Date Captured [...]
[2025-07-29 20:23] VITALS: BP 118/74; PULSE 100; RESP 16; TEMP 36.5; O2SAT 98; BMI 44.2
[2025-07-29 20:27] VITALS: BP 139/86; PULSE 98; RESP 18; O2SAT 100
--- OUTSIDE RECORDS SUMMARY | 2025-07-29 20:35 | XMS_ITS | Clinical Summary ---
Author Organization [facility] Address [address], [address] [place] [address] Care Team Providers Care Transporter Driver Name Role Phone Antonette Mcgee MD Primary Care Provider [phone] Allergies Active Allergy Reactions Criticality Noted Date [...] place to sleep or slept in a care home (including now)? No 01/02/2024 Food Insecurity Answer [...] 10/21/2022 10/21/2012, 08/14/2005, 12/10/2002, Additional history exists Depression Screen 01/02/2025 01/02/2024 Flu vaccine (#1) 06/19/2025 09/10/2018, , 09/01/2015, Additional history exists COVID-19 Vaccine ( season) 2025 Hepatitis B vaccine Completed 06/23/2003, 06/23/2003, 2001, [...] Relevant to Health Maintenance Insurance MEDICAID MEDICAID [facility] MEDICAID Advance Directives Documents on File Type Date Recorded Patient Victim Witness Administrator Expl anation ACP-Advance Directive 05/03/2016 4:02 PM * Full Code (Latest Code Status on File) Date Activated Date Inactivated Comments 02/25/2017 11:58 AM 02/27/2017 4:13 PM * Full Code Date Activated Date Inactivated Comments 02/25/2017 5:20 AM 02/25/2017 11:58 AM Care Teams Transporter Driver Relationship Specialty Start Date End Date Antonette Mcgee MD [id number] [place] [address] PCP - General Internal Medicine 09/15/22
--- OUTSIDE RECORDS SUMMARY | 2025-07-29 20:35 | XMS_ITS | Clinical Summary ---
Author Organization Healthcare Address [address] [place] [address] Care Team Providers Care Diet Tech Name Role Phone MedardoMichell Kenyatta JOSEPH Primary Care Provider [phone] Allergies Active Allergy Reactions Criticality Noted Date [...] 19+ 3-dose series) 2020 [facility]-Pap Smear 2022 [id number] Vaccine (1 - season) 2024 [facility]-Influenza Vaccine [...] age to complete this topic Insurance [employer] [facility] MEDICAID Care Teams Diet Tech Relationship Specialty Start Date End Date Michell Batres APRN [address] [place] [id number] PCP - General 09/29/24
--- NOTE | 2025-07-29 20:40 | HMH.EDGENADL ---
Discharge Plan Disposition Patient Disposition: Home, Self-Care Condition: Good Prescriptions Prescriptions: No Action Classic 28 mg iron- 800 mcg tablet 1 tab PO DAILY 30 Days Qty: 30 3RF albuterol sulfate 90 mcg/actuation HFA aerosol inhaler 2 puff inhalation QIDP PRN (Reason: Shortness Of Breath) Rx Instructions: INHALE 2 PUFFS BY MOUTH FOUR TIMES DAILY NEEDED FOR SHORTNESS OF BREATH OR WHEEZING fluticasone propion-salmeterol [Advair HFA] 115-21 mcg/actuation HFA aerosol inhaler 2 puff inhalation BID Rx Instructions: INHALE 2 PUFFS BY MOUTH TWICE DAILY sennosides [Senna Lax] 8.6 mg Tablet 8.6 mg PO BIDP PRN (Reason: Constipation) Qty: 60 2RF ibuprofen 800 mg tablet 800 mg PO Q8H PRN (Reason: pain) Qty: 60 2RF acetaminophen 500 mg tablet 500 mg PO Q6H PRN (Reason: fever or pain) Qty: 30 3RF simethicone 125 mg tablet 125 mg PO DAILY PRN (Reason: abdominal distention) Qty: 60 2RF oxycodone 5 mg tablet 5 mg PO Q8H PRN (Reason: pain) Qty: 20 0RF Referrals Follow up/Referrals: Michell Batres APRN [Primary Care Provider, Family Practice] - See instructions Activity Restrictions/Add. Instructions Additional Instructions/Restrictions: Follow-up with Dr. Wilkins in the morning in clinic for a repeat blood pressure check. Try to lay flat is much as possible. You can take caffeine pills as needed and stay well-hydrated. Return to the emergency department for any acute or worsening symptoms. Clinical Impressions Clinical Impression: Headache Print Language Print Language: Yoruba Discharge ED Provider: Lorenzo Tee General Adult HPI <Nadeen Gaytan DO - Last Filed: 07/29/25 23:28> General Chief complaint: Headache Stated complaint: delivered 9-8, had spinal feet & legs swollen Time Seen by Provider: 07/29/25 20:23 Mode of Arrival: Ambulatory Source of Information: Patient Description of Symptoms (Recalled from ER Triage Doc. by RN): patient presents to the ED with significant other for a cheif complaint of swelling in both legs/ankles/ feet. THe patient stated she just had a c section Sunday and was discharged home from the hospital today around 1415. The patients legs appear to be severely swollen and patient endorses 9/10 headache. History of Present Illness HPI narrative: Patient is a 24-year-old female who is G 3P3 who presented to the emergency department with a headache. Patient states that she recently gave via on Sunday. Patient states that she had an epidural done at that time. Patient states that she has had a persistent headache since Sunday. Patient's headache worsened today. States that while admitted she was offered a blood patch but patient did not want to pursue this. Also reports some lower extremity swelling that started today. Patient was discharged from OB this morning. Patient has not had any other vision changes or neurologic symptoms. Patient has not any chest pain shortness of breath abdominal pain nausea vomiting or diarrhea. Patient has not taken any medications at home for her headache. Related Data Home Medications ?Medication ?Instructions ?Recorded ?Confirmed albuterol sulfate 90 mcg/actuation 2 puff inhalation QIDP PRN 07/24/25 07/27/25 aerosol inhaler Shortness Of Breath fluticasone propionate 115 2 puff inhalation BID 07/24/25 07/27/25 mcg-salmeterol 21 mcg/actuation HFA inhaler (Advair HFA) Previous Rx's ?Medication ?Instructions ?Recorded vits no.126-ferrous fum 1 tab PO DAILY 30 days #30 tabs 12/09/24 28 mg iron-folic acid 800 mcg tablet (Classic ) acetaminophen 500 mg tablet 500 mg PO Q6H PRN fever or pain 07/29/25 #30 tabs ibuprofen 800 mg tablet 800 mg PO Q8H PRN pain #60 tabs 07/29/25 oxycodone 5 mg tablet 5 mg PO Q8H PRN pain #20 tabs 07/29/25 sennosides 8.6 mg tablet (Senna 8.6 mg PO BIDP PRN Constipation 07/29/25 Lax) #60 tabs simethicone 125 mg tablet 125 mg PO DAILY PRN abdominal 07/29/25 distention #60 tabs Allergies Allergy/AdvReac Type Severity Reaction Status Date / Time prednisolone AdvReac Severe Hives Verified 07/22/25 09:42 [facility] <Nadeen Gaytan, DO - Last Filed: 07/29/25 23:28> [facility] Disclaimer: The information contained in this section may have been updated after the patient was seen, as this information can be updated by other users. Medical History Abdominal pain during UTI (urinary tract infection) Acute vulvovaginitis Left flank pain Asymptomatic bacteriuria during Influenza A Nausea & vomiting Gastritis Irregular menses Screening for lipid disorders Screening for HIV (human immunodeficiency virus) Encounter for hepatitis C screening test for low risk patient Encounter for screening for diabetes mellitus Encounter for screening examination for sexually transmitted disease Fatigue Anemia affecting Obesity affecting History of anxiety History of asthma Surgical History H/O section H/O clubfoot correction Family History Other Family history of COPD (chronic obstructive pulmonary disease) Social History (Updated 07/27/25 @ 04:34 by Tarik Brink CRNA) Smoking Status: Never smoker alcohol intake: never substance use type: denies use current occupational status: unemployed Travel in the last 8 weeks?: None Have you lived/traveled outside US in past 30 days?: No Contact w/someone who lives/traveled outside US past 30 days?: No Exposure to someone with infectious disease in past 14 days?: No Do you have a fever (greater than 100.4 F or 38 C)?: No Have you tested positive for COVID-19?: No Exposed to someone with COVID-19 in past 14 days?: No Do you have a sore throat?: No Do you have a cough?: No Do you have any weakness?: No Do you have any diarrhea?: No Are you experiencing any unusual bleeding?: No Do you have any muscle aches/pain?: No Do you have any abdominal pain?: No Are you experiencing loss of taste or smell?: No Other Medical History Have you received the Flu Vaccine for this season: No Have you received the Pneumonia Vaccine: No <Nadeen Gaytan DO - Last Filed: 07/29/25 23:28> ROS Obtained: Yes All systems reviewed & no additional complaints except as documented and Yes Systems reviewed as appropriate & no additional complaints except as documented Physical Exam <Nadeen Gaytan DO - Last Filed: 07/29/25 23:28> General General appearance: alert and in no apparent distress Head Head exam: atraumatic, normocephalic and normal inspection Eye Eye exam: Present normal appearance, PERRL and EOMI; Absent scleral icterus ENT ENT exam: Present normal exam and normal external ear exam Neck Neck exam: Present normal inspection and full ROM Chest Chest inspection: Present normal inspection and symmetric chest wall rise Respiratory Respiratory exam: Present normal lung sounds bilaterally; Absent respiratory distress or wheezes Cardiovascular Cardiovascular exam: Present regular rate, normal rhythm and normal heart sounds Abdominal Exam Abdominal exam: Present soft and distention; Absent tenderness, guarding or rebound Extremities Exam Extremities exam: Present normal inspection and full ROM Back Exam Back exam: Present normal inspection and full ROM Neurological Exam Neurological exam: Present alert and oriented X3 Psychiatric Psychiatric exam: Present normal affect and normal mood Skin Skin exam: Present warm and dry Medical Decision Making <Nadeen Gaytan, DO - Last Filed: 07/29/25 23:28> Medical Records Medical records reviewed: Yes I reviewed the patient's medical records. Screening: Per USPSTF and CDC recommendations, given the prevalence of disease in our region, it is our hospital?s policy to screen for HIV and viral Hepatitis for all patients aged 18 and over and those with ongoing risk factors. [place] Inquiry Pt receiving controlled substance: No Vital Signs: 07/29/25 20:23 07/29/25 20:27 07/29/25 20:43 Temperature 97.7 F Temperature Source Temporal Artery Scan Pulse Rate 98 H 103 H Pulse Rate [Right Radial] 100 H Respiratory Rate 16 18 18 Blood Pressure 139/86 158/87 H Blood Pressure [Right Arm] 118/74 Blood Pressure Mean [Right Arm] 88 Blood Pressure Source Automatic Cuff Automatic Cuff Blood Pressure Source [Right Arm] Automatic Cuff Blood Pressure Position Sitting Sitting Blood Pressure Position [Right Arm] Sitting 02 Sat by Pulse Oximetry 98 100 100 Oxygen Delivery Method Room Air Room Air Room Air 07/29/25 21:40 07/30/25 03:28 Temperature 98 F Temperature Source Pulse Rate 68 62 Pulse Rate [Right Radial] Respiratory Rate 14 16 Blood Pressure 122/69 119/68 Blood Pressure [Right Arm] Blood Pressure Mean [Right Arm] Blood Pressure Source Blood Pressure Source [Right Arm] Blood Pressure Position Sitting Sitting Blood Pressure Position [Right Arm] 02 Sat by Pulse Oximetry 100 Oxygen Delivery Method Room Air Room Air Lab Data Lab results reviewed: Yes I reviewed the patient's lab results. Lab Results 07/29/25 20:41: WBC 10.4 D, RBC 3.45 L, Hgb 9.5 L, Hct 30.3 L, MCV 87.8, MCH 27.5, MCHC 31.4 L, RDW 18.0 H, Plt Count 222, MPV 10.9 H, Neut % (Auto) 70.6, Lymph % (Auto) 19.4, [place] % (Auto) 5.4, Eos % (Auto) 1.5, Baso % (Auto) 0.5, Neut # (Auto) 7.3, Lymph # (Auto) 2.0, [place] # (Auto) 0.6, Eos # (Auto) 0.2, Baso # (Auto) 0.1, Sodium 140, Potassium 3.6, Chloride 109 H, Carbon Dioxide 26, Anion Gap 8.6, BUN 11, Creatinine 0.70, Estimated Creat Clear 103, Estimated GFR 104, Est GFR ( Amer) 125, Glucose 100, Uric Acid 5.0, Calcium 9.3, Magnesium 1.7, Total Bilirubin 0.2, AST 23, ALT 11 L, Alkaline Phosphatase 115, Lactate Dehydrogenase 208 L, Total Protein 6.8, Albumin 3.3 L, Globulin 3.5 H, Albumin/Globulin Ratio 0.9 L 07/29/25 21:00: Serum HCG, Qual Positive, Urine Color Yellow, Urine Appearance Clear, Urine pH 6.5, Ur Specific [place] 1.020, Urine Protein Negative, Urine Glucose (UA) Negative, Urine Ketones Negative, Urine Blood 2+ A, Urine Nitrate Negative, Urine Bilirubin Negative, Urine Urobilinogen 0.2, Ur Leukocyte Esterase Negative, Urine RBC 20-50, Urine WBC 3-5, Ur Squamous Epith Cells 5-10, Urine Bacteria 1+ 07/29/25 20:41 07/29/25 20:41 Orders (Tests/Meds): ED MEDICATIONS Discontinued Medications Generic Name Dose Route Start Last Admin Trade Name Freq PRN Reason Stop Dose Admin Acetaminophen/Butalbital/Caffeine 2 each 07/29/25 20:57 07/29/25 21:12 Butalb/Acetaminophen/Caffeine 50mg/325mg/40mg Tab PO 07/29/25 20:58 2 each ONCE ONE Administration Droperidol 2.5 mg 07/29/25 22:51 07/29/25 23:19 Droperidol 5mg/2ml Vial IV 07/29/25 22:52 2.5 mg ONCE ONE Administration Sodium Chloride 1,000 mls @ 999 mls/hr 07/29/25 20:48 07/29/25 22:20 Sod Chlor 0.9% 1000ml Bag IV 07/29/25 21:48 Infused .Q1H1M ONE Infusion Magnesium Sulfate 2 gm in 50 mls @ 50 mls/hr 07/29/25 21:07 07/29/25 21:54 Magnesium Sulfate 2gm/50ml Premix IV 07/29/25 22:06 Infused ONCE ONE Infusion Ketorolac Tromethamine 30 mg 07/29/25 21:40 07/29/25 21:50 Ketorolac 30mg/Ml Vial IV 07/29/25 21:41 30 mg ONCE ONE Administration Ondansetron HCl 4 mg 07/29/25 20:57 07/29/25 21:12 Ondansetron 4mg/2ml Vial IV 07/29/25 20:58 4 mg ONCE ONE Administration ORDERS Category Date Time Status CT head/brain wo con Stat Cat Scan 07/29/25 20:45 Completed CBC [Complete Blood Count Auto Diff] Stat Lab 07/29/25 20:41 Completed CMP [Comprehensive Metabolic Panel] Stat Lab 07/29/25 20:41 Completed HCG Qualitative, Serum Stat Lab 07/29/25 21:00 Completed LDH [Lactate Dehydrogenase] Stat Lab 07/29/25 20:41 Completed MAG [Magnesium] Stat Lab 07/29/25 20:41 Completed UA [Urinalysis and Microscopic] Stat Lab 07/29/25 21:00 Completed Uric Acid Stat Lab 07/29/25 20:41 Completed Medical Decision Narrative: Patient is an otherwise healthy 24-year-old female who is who presented to the emergency department with a headache. On arrival, patient was mildly hypertensive with a blood pressure of 158/87 vital signs were otherwise unremarkable. Differential includes but not limited to: Preeclampsia, eclampsia, post LP headache, migraine headache, tension headache, amongst others. Patient's labs were reviewed and interpreted by myself: Patient's CBC showed no leukocytosis, hemoglobin was stable. CMP was unremarkable. LDH was 208. UA with some bacteria, 3-5 white blood cells some red blood cells negative leukesterase, no protein. CT head was reviewed and interpreted by myself and showed no acute pathology. Patient was given multiple medications in the emergency department for headache including Toradol, magnesium, Zofran, IV fluids, Fioricet as well as droperidol. I discussed the case with OB given my concern for possible preeclampsia in the setting of recent as well as post LP headache. OB felt that patient did not have severe symptoms at this time and if patient wished to stay overnight patient can be admitted to the L&D service and get operative blood patch tomorrow given her headache is most consistent with post LP. Was signed out to the oncoming provider Dr. Tee pending reassessment after droperidol. <Lorenzo Tee MD - Last Filed: 07/30/25 03:37> Vital Signs: 07/29/25 20:23 07/29/25 20:27 07/29/25 20:43 Temperature 97.7 F Temperature Source Temporal Artery Scan Pulse Rate 98 H 103 H Pulse Rate [Right Radial] 100 H Respiratory Rate 16 18 18 Blood Pressure 139/86 158/87 H Blood Pressure [Right Arm] 118/74 Blood Pressure Mean [Right Arm] 88 Blood Pressure Source Automatic Cuff Automatic Cuff Blood Pressure Source [Right Arm] Automatic Cuff Blood Pressure Position Sitting Sitting Blood Pressure Position [Right Arm] Sitting 02 Sat by Pulse Oximetry 98 100 100 Oxygen Delivery Method Room Air Room Air Room Air 07/29/25 21:40 07/30/25 03:28 Temperature 98 F Temperature Source Pulse Rate 68 62 Pulse Rate [Right Radial] Respiratory Rate 14 16 Blood Pressure 122/69 119/68 Blood Pressure [Right Arm] Blood Pressure Mean [Right Arm] Blood Pressure Source Blood Pressure Source [Right Arm] Blood Pressure Position Sitting Sitting Blood Pressure Position [Right Arm] 02 Sat by Pulse Oximetry 100 Oxygen Delivery Method Room Air Room Air Lab Data Lab Results 07/29/25 20:41: WBC 10.4 D, RBC 3.45 L, Hgb 9.5 L, Hct 30.3 L, MCV 87.8, MCH 27.5, MCHC 31.4 L, RDW 18.0 H, Plt Count 222, MPV 10.9 H, Neut % (Auto) 70.6, Lymph % (Auto) 19.4, [place] % (Auto) 5.4, Eos % (Auto) 1.5, Baso % (Auto) 0.5, Neut # (Auto) 7.3, Lymph # (Auto) 2.0, [place] # (Auto) 0.6, Eos # (Auto) 0.2, Baso # (Auto) 0.1, Sodium 140, Potassium 3.6, Chloride 109 H, Carbon Dioxide 26, Anion Gap 8.6, BUN 11, Creatinine 0.70, Estimated Creat Clear 103, Estimated GFR 104, Est GFR ( Amer) 125, Glucose 100, Uric Acid 5.0, Calcium 9.3, Magnesium 1.7, Total Bilirubin 0.2, AST 23, ALT 11 L, Alkaline Phosphatase 115, Lactate Dehydrogenase 208 L, Total Protein 6.8, Albumin 3.3 L, Globulin 3.5 H, Albumin/Globulin Ratio 0.9 L 07/29/25 21:00: Serum HCG, Qual Positive, Urine Color Yellow, Urine Appearance Clear, Urine pH 6.5, Ur Specific [place] 1.020, Urine Protein Negative, Urine Glucose (UA) Negative, Urine Ketones Negative, Urine Blood 2+ A, Urine Nitrate Negative, Urine Bilirubin Negative, Urine Urobilinogen 0.2, Ur Leukocyte Esterase Negative, Urine RBC 20-50, Urine WBC 3-5, Ur Squamous Epith Cells 5-10, Urine Bacteria 1+ Orders (Tests/Meds): ED MEDICATIONS Discontinued Medications Generic Name Dose Route Start Last Admin Trade Name Freq PRN Reason Stop Dose Admin Acetaminophen/Butalbital/Caffeine 2 each 07/29/25 20:57 07/29/25 21:12 Butalb/Acetaminophen/Caffeine 50mg/325mg/40mg Tab PO 07/29/25 20:58 2 each ONCE ONE Administration Droperidol 2.5 mg 07/29/25 22:51 07/29/25 23:19 Droperidol 5mg/2ml Vial IV 07/29/25 22:52 2.5 mg ONCE ONE Administration Sodium Chloride 1,000 mls @ 999 mls/hr 07/29/25 20:48 07/29/25 22:20 Sod Chlor 0.9% 1000ml Bag IV 07/29/25 21:48 Infused .Q1H1M ONE Infusion Magnesium Sulfate 2 gm in 50 mls @ 50 mls/hr 07/29/25 21:07 07/29/25 21:54 Magnesium Sulfate 2gm/50ml Premix IV 07/29/25 22:06 Infused ONCE ONE Infusion Ketorolac Tromethamine 30 mg 07/29/25 21:40 07/29/25 21:50 Ketorolac 30mg/Ml Vial IV 07/29/25 21:41 30 mg ONCE ONE Administration Ondansetron HCl 4 mg 07/29/25 20:57 07/29/25 21:12 Ondansetron 4mg/2ml Vial IV 07/29/25 20:58 4 mg ONCE ONE Administration ORDERS Category Date Time Status CT head/brain wo con Stat Cat Scan 07/29/25 20:45 Completed CBC [Complete Blood Count Auto Diff] Stat Lab 07/29/25 20:41 Completed CMP [Comprehensive Metabolic Panel] Stat Lab 07/29/25 20:41 Completed HCG Qualitative, Serum Stat Lab 07/29/25 21:00 Completed LDH [Lactate Dehydrogenase] Stat Lab 07/29/25 20:41 Completed MAG [Magnesium] Stat Lab 07/29/25 20:41 Completed UA [Urinalysis and Microscopic] Stat Lab 07/29/25 21:00 Completed Uric Acid Stat Lab 07/29/25 20:41 Completed Medical Decision Narrative: Patient is an otherwise healthy 24-year-old female who is who presented to the emergency department with a headache. On arrival, patient was mildly hypertensive with a blood pressure of 158/87 vital signs were otherwise unremarkable. Differential includes but not limited to: Preeclampsia, eclampsia, post LP headache, migraine headache, tension headache, amongst others. Patient's labs were reviewed and interpreted by myself: Patient's CBC showed no leukocytosis, hemoglobin was stable. CMP was unremarkable. LDH was 208. UA with some bacteria, 3-5 white blood cells some red blood cells negative leukesterase, no protein. CT head was reviewed and interpreted by myself and showed no acute pathology. Patient was given multiple medications in the emergency department for headache including Toradol, magnesium, Zofran, IV fluids, Fioricet as well as droperidol. I discussed the case with OB given my concern for possible preeclampsia in the setting of recent as well as post LP headache. OB felt that patient did not have severe symptoms at this time and if patient wished to stay overnight patient can be admitted to the L&D service and get operative blood patch tomorrow given her headache is most consistent with post LP. Was signed out to the oncoming provider Dr. Tee pending reassessment after droperidol. Nay SCHRADER: I assumed care of the patient at the time of handoff from the prior provider. On reassessment patient reports symptomatic improvement but not resolution. Patient did not wish to stay for the full 2-hour observation. She was discharged in stable condition and will follow-up with [facility]. Critical Care <Nadeen Gaytan, DO - Last Filed: 07/29/25 23:28> Critical Care Time Critical Care Time: No
[2025-07-29 20:43] VITALS: BP 158/87; PULSE 103; RESP 18; O2SAT 100
--- NOTE | 2025-07-29 20:45 | CT_ITS ---
PROCEDURE INFORMATION: Exam: CT Head Without Contrast Exam date and time: 07/29/2025 9:18 PM Age: 24 years old Clinical indication: Pain; Headache; Additional info: Headache, post-lp TECHNIQUE: Imaging protocol: Computed tomography of the head without contrast. Radiation optimization: All CT scans at this facility use at least one of these dose optimization techniques: automated exposure control; mA and/or kV adjustment per patient size (includes targeted exams where dose is matched to clinical indication); or iterative reconstruction. COMPARISON: No relevant prior studies available. FINDINGS: Brain: No acute intracranial hemorrhage, midline shift, or mass effect. Cerebral ventricles: No ventriculomegaly. Paranasal sinuses: Visualized sinuses are unremarkable. No fluid levels. Mastoid air cells: Visualized mastoid air cells are well aerated. Bones: Unremarkable. No acute fracture. Soft tissues: Unremarkable. IMPRESSION: No acute intracranial findings.
[2025-07-29 20:51] LABS: Hematocrit 30.3 % (37.0-47.0); Hemoglobin 9.5 g/dL (12.2-16.2); Immature Granulocytes % 2.6 %; Mean Corpuscular HGB Conc 31.4 g/dL (31.8-35.4); Mean Corpuscular Hemoglobin 27.5 pg (27.0-31.2); Mean Corpuscular Volume 87.8 fl (81-99); Nucleated Red Blood Cells % 0.4 %; Platelet Count 222 K/mm3 (142-424); Red Blood Count 3.45 M/mm3 (4.20-5.40); Red Cell Distribution Width-SD 56.9 fL; White Blood Count 10.4 K/mm3 (4.8-10.8)
[2025-07-29 20:53] LABS: Albumin Level 3.3 g/dl (3.5-5.0); Chloride 109 mmol/L (98-107); Potassium 3.6 mmoL/L (3.5-5.1); Sodium 140 mmol/L (136-145)
[2025-07-29 20:55] LABS: Blood Urea Nitrogen 11 mg/dl (7-17); Creatinine Clearance Estimated 103 mL/min (50-200); Creatinine,Serum 0.70 mg/dl (0.52-1.04); Estimated Glomerular Filt Rate 104 ml/min (>60); GFR (African American) 125 ML/MIN (>60)
[2025-07-29 20:56] LABS: Alanine Aminotransferase 11 U/L (12-78); Albumin/Globulin Ratio 0.9 (1.1-1.8); Alkaline Phosphatase 115 U/L (38-126); Anion Gap 8.6 mEq/L (5-15); Aspartate Amino Transferase 23 U/L (14-36); Bilirubin,Total 0.2 mg/dl (0.2-1.3); Calcium 9.3 mg/dl (8.4-10.2); Carbon Dioxide 26 mmol/L (22.0-30.0); Globulin 3.5 g/dL (1.3-3.2); Glucose 100 mg/dl (74-100); Total Protein,Serum 6.8 g/dl (6.3-8.2); Uric Acid 5.0 mg/dl (2.5-6.2)
[2025-07-29 20:57] LABS: Magnesium 1.7 mg/dl (1.6-2.3)
[2025-07-29] MEDS: 0.9 % SODIUM CHLORIDE 1000ML 1,000 ML 999 ML IV (21:01)
[2025-07-29 21:07] LABS: Microscopic, Urine URINE MICROSCOPIC (MICROSCOPIC)
[2025-07-29 21:09] LABS: Bilirubin,Urine Negative (Negative); Color,Urine YELLOW (Yellow); Glucose,Urine (UA) Negative (Negative); Ketones,Urine Negative (Negative); Leukocyte Esterase,Urine Negative (Negative); PH,Urine 6.5 (5.0-8.5); Protein,Urine Negative (Negative); Specific Gravity, Urine 1.020 (1.005-1.030); Urobilinogen,Urine 0.2 EU/dl (0.2)
[2025-07-29] MEDS: BUTALB/ACETAMINOPHEN/CAFFEINE 50MG/325MG/40MG TAB 2 EACH PO (21:12)
[2025-07-29] MEDS: ONDANSETRON 4MG/2ML VIAL 4 MG IV (21:12)
[2025-07-29] MEDS: MAGNESIUM SULFATE IN WATER 2 GM/50 ML PIGGYBACK IV (21:13)
[2025-07-29 21:21] LABS: HCG Qualitative, Serum Positive (Negative)
[2025-07-29 21:40] VITALS: BP 122/69; PULSE 68; RESP 14; O2SAT 100
[2025-07-29] MEDS: KETOROLAC 30MG/ML VIAL 30 MG IV (21:50)
[2025-07-29 21:54] LABS: Bacteria,Urine 1+ /lpf; RBC,Urine 20-50 #/hpf (0-3)
--- NOTE | 2025-07-29 23:08 | ECG_ITS ---
APPROVED REPORT Exam: Resting ECG HR:80 bpm ECG Measurements Heart Rate 80 AXES WV 153 P 58 QRSd 81 QRS 75 QT 361 T 52 QTc 397 Conclusion SINUS RHYTHM WITH MARKED SINUS ARRHYTHMIA No STEMI Electronically signed by : CL FISHER, 07/31/2025 02:50:31
[2025-07-29] MEDS: droPERidol 5MG/2ML VIAL 2.5 MG IV (23:19)
[2025-07-30 03:28] VITALS: BP 119/68; PULSE 62; RESP 16; TEMP 36.6; O2SAT 100
== END 2025-07-29 23:30 | disposition home or self-care (01) ==
PROVIDERS: Student in an Organized Health Care Education/Training Program; Emergency Provider Emergency Medicine; PCP Nurse Practitioner Family
DX: O90.89 Other complications of the puerperium, not elsewhere classified (principal); R51.9 Headache, unspecified
CPT/HCPCS: 70450; 80053; 81001; 83615; 83735; 84550; 84703; 85025; 93005; 96365; 96375; 99285; J1790; J1885; J2405; J3475; J7030

== ENCOUNTER 2025-07-31 14:17 | Outpatient (CLI) | payer OTHER, SELFPAY ==
[2025-07-31 15:27] VITALS: BP 118/74; PULSE 99; RESP 18; TEMP 37.3; O2SAT 100
--- NOTE | 2025-07-31 15:30 | PC.NURSE ---
1514 Leni Maloney CRNA at bedside speaking with pt about epidural blood patch. Informed consent received.
--- NOTE | 2025-07-31 15:46 | HMH.PROCNOTE ---
[facility] Procedure Note Date: 07/31/25 Time: 15:30 Procedure Note:: Called to OB 273. Patient c/o worsening headache only relieved when lying down flat. Other symptoms include neck pain. I previously assessed patient earlier this week and her symptoms were milder. Explained the RBA's to epidural blood patch and patient wishes to proceed. Pt sat up on side of bed and prepped/draped in sterile technique. Skin was localized, epidural needle placed with ESTHELA @ 7cm, blood drawn by OB nurse at bedside. Blood was then placed into epidural space until patient reported intense pressure, about 18cc's. Epidural needle removed and band-aid placed over insertion site. Patient instructed to lie flat for 30 minutes. Patient reports headache improved. Instructing patient to continue increased fluid and caffeine intake and bedrest.
[2025-07-31 15:47] VITALS: BP 121/70; PULSE 84; RESP 16; O2SAT 97
[2025-07-31 16:16] VITALS: BP 122/66; PULSE 89; RESP 17; TEMP 37.2; O2SAT 98
== END 2025-07-31 16:27 | disposition home or self-care (01) ==
LOC: OBOUT 14:18 → OB 14:19
PROVIDERS: PCP Nurse Practitioner Family; Visit Provider Obstetrics & Gynecology
DX: Z34.80 Encounter for supervision of other normal pregnancy, unspecified trimester (principal); R51.9 Headache, unspecified; Z3A.00 Weeks of gestation of pregnancy not specified
CPT/HCPCS: 99212; 99213; G0463

== ENCOUNTER 2025-09-16 11:33 | Outpatient (CLI) | payer OTHER, SELFPAY ==
[2025-09-16 14:20] LABS: Microscopic, Urine URINE MICROSCOPIC (MICROSCOPIC)
[2025-09-16 16:08] LABS: Bilirubin,Urine Negative (Negative); Color,Urine YELLOW (Yellow); Glucose,Urine (UA) Negative (Negative); Ketones,Urine Negative (Negative); Leukocyte Esterase,Urine Negative (Negative); PH,Urine 6.5 (5.0-8.5); Protein,Urine Negative (Negative); Specific Gravity, Urine 1.020 (1.005-1.030); Urobilinogen,Urine 0.2 EU/dl (0.2)
[2025-09-16 19:37] LABS: Bacteria,Urine 1+ /lpf; Mucus,Urine 1+ /lpf; RBC,Urine Occasional #/hpf (0-3)
== END 2025-09-16 23:59 | disposition home or self-care (01) ==
LOC: LAB.DROPOF 09-17 14:14
PROVIDERS: PCP Nurse Practitioner Family; Visit Provider Nurse Practitioner Family
DX: R39.9 Unspecified symptoms and signs involving the genitourinary system (principal)
CPT/HCPCS: 81001; 87086

== ENCOUNTER 2025-10-30 10:25 | Outpatient (CLI) | payer OTHER, SELFPAY | END 2025-10-30 23:59 | disposition home or self-care (01) | LOC: LAB 10:25 | PROVIDERS: PCP Nurse Practitioner Family; Visit Provider Obstetrics & Gynecology | DX: Z34.90 Encounter for supervision of normal pregnancy, unspecified, unspecified trimester (principal); Z3A.00 Weeks of gestation of pregnancy not specified | CPT/HCPCS: 36415; 84144; 84702 ==

== ENCOUNTER 2025-11-03 12:22 | Outpatient (CLI) | payer OTHER, SELFPAY ==
--- OUTSIDE RECORDS SUMMARY | 2025-11-03 12:25 | XMS_ITS | Clinical Summary ---
Author Organization Healthcare Address [address] [place] [address] Care Team Providers Care Manager Inpatient Name Role Phone MedardoMichell Kenyatta JOSEPH Primary Care Provider [phone] Allergies Active Allergy Reactions Criticality Noted Date [...] Health Maintenance Due Date Last Done Comments [facility]-Depression Screening 2001 [facility]-Hepatitis C Screening 2001 [facility]-Infant/Child/Adol SDOH Screenings 2001 [facility]-Varicella Vaccines (1 of 2 - 13+ 2-dose series) 2014 HPV Vaccines (1 - 3-dose series) 2016 [facility]- SDOH Screenings 2019 [facility]-Adult SDOH Screenings 2019 [facility]-DTaP,Tdap,and Td Vaccine s (4 - Tdap) 2020 08/14/2005, 06/11/2002, 04/01/2002 [facility]-Hepatitis B Vaccines (1 of 3 - 19+ 3-dose series) 2020 [facility]-Pap Smear 2022 [id number] Vaccine (1 - 2024- season) 2025 [facility]-Influenza Vaccine (#1) 2025 [facility]-Zoster Vaccines (1 [...] age to complete this topic Insurance [employer]ICA[employer] Care Teams Manager Inpatient Relationship Specialty Start Date End Date Michell Batres, DETAIL ASSEMBLER [address] [place] [address] PCP - General 09/29/24
--- OUTSIDE RECORDS SUMMARY | 2025-11-03 12:25 | XMS_ITS | Clinical Summary ---
Author Organization [facility] Address [address], [address] [place] [address] Care Team Providers Care Knockdown Man Name Role Phone Antonette Mcgee MD Primary Care Provider [phone] Allergies Active Allergy Reactions Criticality Noted Date [...] Health Maintenance Due Date Last Done Comments Chlamydia/GC screen 10/10/2017 10/10/2016 Hepatitis C screen 2019 Pap smear 2022 DTaP/Tdap/Td vaccine (7 - Td or Tdap) 10/21/2022 10/21/2012, 08/14/2005, 12/10/2002, Additional history exists Depression Screen 01/02/2025 01/02/2024 Flu vaccine (#1) 06/19/2025 09/10/2018, , 09/01/2015, Additional history exists COVID-19 Vaccine () 07/20/2025 Hepatitis B vaccine Completed 06/23/2003, 06/23/2003, 2001, Additional history exists Hib vaccine Completed 06/23/2003, 11/20, 04/01/2002, Additional history exists Measles,Mumps,Rubella (MMR) vaccine Discontinued 09/06/2006, 08/14/2005 Varicella vaccine Completed 09/06/2006, , 08/20/2002 Polio vaccine Completed 10/27/2006, 08/19, 08/20/2002, Additional history exists HPV vaccine Completed 08/13/2014, 11/19, 10/21/2012 Hepatitis A vaccine Completed 02/22/2015, 2 HIV screen Completed 10/10/2016 Meningococcal (ACWY) vaccine Completed 09/04/2017, 10/21/2012 Meningococcal B vaccine Aged Out No l onger eligible based on patient's age to complete this topic Pneumococcal 0-49 years Vaccine Aged Out No [...] Relevant to Health Maintenance Insurance MEDICAID MEDICAID [place] [facility] MEDICAID Advance Directives Documents on File Type Date Recorded Patient Rocket Scientist Expl anation ACP-Advance Directive 05/03/2016 4:02 PM * Full Code (Latest Code Status on File) Date Activated Date Inactivated Comments 02/25/2017 11:58 AM 02/27/2017 4:13 PM * Full Code Date Activated Date Inactivated Comments 02/25/2017 5:20 AM 02/25/2017 11:58 AM Care Teams Knockdown Man Relationship Specialty Start Date End Date Antonette Mcgee MD [address] [address] PCP - General Internal Medicine 09/15/22
== END 2025-11-03 23:59 | disposition home or self-care (01) ==
LOC: LAB 12:24
PROVIDERS: PCP Nurse Practitioner Family; Visit Provider Obstetrics & Gynecology
DX: Z34.90 Encounter for supervision of normal pregnancy, unspecified, unspecified trimester (principal); N91.2 Amenorrhea, unspecified; N92.6 Irregular menstruation, unspecified; Z3A.00 Weeks of gestation of pregnancy not specified
CPT/HCPCS: 36415; 84702